=== PATIENT | male | born 1975 | race Caucasian/White ===

== ENCOUNTER 2016-03-22 17:42 | Inpatient (IN) | payer SELFPAY ==
[~2016-03-22] VITALS: Ht 175.3 cm; Wt 64.1 kg
[~2016-03-22 17:42] MED LIST: ASPIRIN325 MG PO; COREG6.25 MG
[2016-03-22 18:22] LABS: BASOPHILS 0.2 % (0.0-2.0); EOSINOPHILS 2.8 % (0-7); HEMATOCRIT 34.6 % (42.0-54.0); HEMOGLOBIN 11.2 g/dL (13.5-17.5); LYMPHOCYTES 19.4 % (15-50); MCH 30.8 pg (26.0-34.0); MCHC 32.4 g/dL (31.0-37.0); MCV 95.1 fL (80.0-100.0); MEAN PLATELET VOLUME 8.9 fL (7.4-10.4); NEUTROPHILS 58.6 % (40-80); PLATELET COUNT 150 10x3/uL (130-400); RBC 3.64 10x6/uL (4.20-6.10); RDW 17.8 % (11.5-14.5); WBC 4.6 10x3/uL (4.8-10.8)
[2016-03-22 18:44] LABS: ALBUMIN 2.4 g/dL (3.4-5.0); ALKALINE PHOSPHATASE 160 U/L (46-116); ALT (SGPT) 26 U/L (10-68); CALC OSMOLALITY 281 mosm/kg (275-300); CALCIUM 8.2 mg/dL (8.5-10.1); CARBON DIOXIDE 27.2 mmol/L (21.0-32.0); CHLORIDE - SERUM 107 mmol/L (98-107); CREATININE - SERUM 0.6 mg/dL (0.6-1.3); GLUCOSE 107 mg/dL (74-106); POTASSIUM - SERUM 3.7 mmol/L (3.5-5.1); PROTEIN - SERUM 7.7 g/dL (6.4-8.2); SODIUM 143 mmol/L (136-145); UREA NITROGEN 4 mg/dL (7-18); eGFR NON AFRICAN AMERICAN > 90 mL/min (90-120)
--- NOTE | 2016-03-22 21:21 | NUR ---
PT ARRIVED TO ICU VIA WHEEL CHAIR. AAO. C/O SHORTNESS OF BREATHE; DEPRESSION; AND HOPELESSNESS. PAIN 8/10 ANKLES. STATES PAIN IS FROM A FX IN RIGHT ANKLE. PT TO BEDSIDE COMMODE; GAIT STEADY. URINAL AT BEDSIDE. URINE YELLOW.
[2016-03-22 21:35] VITALS: BP 149/95; BMI 31.5
--- NOTE | 2016-03-22 21:35 | NUR ---
ASSESSMENT COMPLETE. S1S2. SINUS TACH SHOWING ON MONITOR. RR SHALLOW; DIMINISHED THROUGHOUT ALL LOBES. ABD DISTENDED; ROUND; FIRM. ASCITES PRESENT. PT C/O TENDERNESS IN ABD; STATES CONSTIPATION. AAO. PERRLA.
[2016-03-22 22:00] VITALS: BP 124/85
[2016-03-22 23:00] VITALS: BP 123/72
[2016-03-22 23:22] LABS: APPEARANCE CLEAR (CLEAR); BILIRUBIN NEGATIVE (NEGATIVE); COLOR YELLOW (YELLOW); GLUCOSE NEGATIVE (NEGATIVE); KETONE NEGATIVE (NEGATIVE); LEUKOCYTE ESTERASE NEGATIVE (NEGATIVE); NITRITE NEGATIVE (NEGATIVE); PROTEIN NEGATIVE (NEGATIVE); SPECIFIC GRAVITY 1.015 (1.005-1.020); UROBILINOGEN NORMAL (NORMAL)
[2016-03-22 23:27] LABS: UDS - AMPHET NEGATIVE QUAL (NEGATIVE); UDS - BARB NEGATIVE QUAL (NEGATIVE); UDS - BENZO NEGATIVE QUAL (NEGATIVE); UDS - COCAINE NEGATIVE QUAL (NEGATIVE); UDS - METH NEGATIVE QUAL (NEGATIVE); UDS - OPIATE NEGATIVE QUAL (NEGATIVE); UDS - PCP NEGATIVE QUAL (NEGATIVE); UDS - THC NEGATIVE QUAL (NEGATIVE)
--- NOTE | 2016-03-22 23:49 | NUR ---
PT RESTING; EYES CLOSED. NO DISTRESS NOTED. CALL LIGHT IN REACH. WILL CONTINUE TO MONITOR.
[2016-03-23] VITALS (24 sets, daily range): BP systolic 110–153; BP diastolic 6–87; Ht 175.3 cm; Wt 64.1 kg
--- NOTE | 2016-03-23 01:20 | NUR ---
PT RESTING; EYES CLOSED. VSS. NO DISTRESS NOTED. CALL LIGHT IN REACH. WILL CONTINUE TO MONITOR.
--- NOTE | 2016-03-23 03:15 | NUR ---
ASSESSMENT COMPLETE. NO CHANGES FROM PREVIOUS ASSESSMENT. WILL CONTINUE TO MONITOR.
--- NOTE | 2016-03-23 06:32 | NUR ---
0400: I/O COLLECTED. URINAL EMPTIED. PT HAD LARGE BM; SOFT YELLOW.
--- NOTE | 2016-03-23 07:15 | NUR ---
REPORT RECIEVED FROM SHOW HOST NURSE. PT RESTING IN BED QUIETLY. UPON ASSESSMENT PT ASKED WHAT BROUGHT HIM TO THE HOSPITAL. ANSWERED APPROPRIATLY. TEARFUL ABOUT CURRENT MEDICAL DX. STATED HE IS HOMELESS AND NO LONGER HAS INSURANCE COVERAGE. STATED TO PT THAT WE WILL GET CASE MANAGEMENT INVOLVED THROUGHOUT HIS ADMISSION. FULL ASSESSMENT COMPLETE PER FLOWSHEET. CALL LIGHT IN REACH. BED IN LOW POSITION. WILL CONT TO ASSESS FOR CHANGES.
--- NOTE | 2016-03-23 11:00 | NUR ---
DR. LUGO AT BEDSIDE. UPDATE PROVIDED.
--- NOTE | 2016-03-23 12:43 | NUR ---
MEDICAL RECORDS CALLED AT [facility] TO OBTAIN LAB RECORDS FOR THE LAST YEAR ON PT.
--- NOTE | 2016-03-23 12:44 | NUR ---
US OF ABD BEING COMPLETED NOW.
--- NOTE | 2016-03-23 14:00 | NUR ---
SPOKE WITH DR. WHITEHEAD. PARACENTESIS SCHEDULED FOR TOMORROW. WILL KEEP NPO AFTER MIDNIGHT.
--- NOTE | 2016-03-23 15:00 | NUR ---
PT RESTING IN BED QUIETLY DENIES NEEDS AT THIS TIME. WILL CONT TO ASSESS FOR CHANGES.
--- NOTE | 2016-03-23 15:27 | HP ---
PATIENT: DANIELLE MCKEE MEDICAL RECORD: [id number] ACCOUNT: [id number] LOCATION:[facility] D.2303 : 77 ADMISSION DATE: 03/22/16 HISTORY AND PHYSICAL EXAMINATION HISTORY OF PRESENT ILLNESS: A 40-year-old white male, presented to the Emergency Room on day of admission with a med-on-call admission for edema and liver failure. The patient has a longstanding history of alcohol-induced cirrhosis. He states he was diagnosed with stage IV while he was in [place], [place]. He has been moved up here for several years and has not got a primary care doctor. He was seen at another facility yesterday morning and did not get any treatment in the ER to his satisfaction and came in for second evaluation. The patient smells strongly of alcohol and stated that he wanted to kill himself by taking what medicines he had from leftover ER visits in his pocket and would take them all. The patient's blood alcohol levels was 0.21 and was admitted to the hospital for further evaluation. The patient presently in the ICU under suicide watch and is seen to have evaluation for his cirrhosis. PAST MEDICAL HISTORY: Significant for alcohol abuse, cirrhosis, hypertension, dependent edema, anemia, ischemic CVA, illicit drug use, noncompliance. PAST SURGICAL HISTORY: None. ALLEGIES: THE PATIENT IS ALLERGIC TO CODEINE. MEDICATIONS: Include Coreg. SOCIAL HISTORY: The patient does smoke a half pack per day. He does use recreational marijuana. He continues to drink alcohol on a daily basis. REVIEW OF SYSTEMS: Indicates no fever or chills. He does have some increased abdominal swelling, increased leg swelling and increased fatigue. He does admit to active suicidal ideation. He state that he is angry about his life in this situation. PHYSICAL EXAMINATION: VITAL SIGNS: At the time of history and physical as below. GENERAL: He is a well-developed, well-nourished 40-year-old white male that is awake, alert, with abdominal swelling and swelling in lower extremities. HEENT: Pupils are equally round and reactive to light. Extraocular movements intact. Mildly increased conjunctival injection is noted. NECK: No nuchal rigidity is noted. LUNGS: Have clear breath sounds bilaterally. HEART: Regular rate and rhythm with tachycardia. ABDOMEN: Distended, has a positive fluid wave, is tense, hypoactive bowel sounds. EXTREMITIES: No guarding at the present time, no rashes. He has got 2+ pitting edema in the bilateral lower extremities. NEUROLOGIC: He is able to move all 4 extremities. ASSESSMENT: 1. Alcohol intoxication. 2. Ascites. 3. Cirrhosis. 4. Dependent edema. HISTORY AND PHYSICAL [id number] DANIELLE MCKEE 5. Suicidal ideation. 6. Depression. 7. History of marijuana use. 8. Noncompliance. PLAN: The patient will be admitted to the ICU, psychiatric evaluation will be obtained. GI consultation will be obtained, radiology consultation, CT of the abdomen without contrast. We will need a pleurocentesis to drain all fluid and check laboratory appropriately. TRANSINT:[id number] Voice Confirmation ID: [id number] DOCUMENT ID: [id number] KRISTIAN LUGO MD at 1527 CC: [id number] DICTATION DATE: 03/23/16 1136 CLIPPER AND TURNER: 03/23/16 1236 ADM IN [facility] [address] [place] [address]
[2016-03-23 15:41] LABS: BASOPHILS 0.2 % (0.0-2.0); HEMATOCRIT 28.8 % (42.0-54.0); HEMOGLOBIN 9.3 g/dL (13.5-17.5); LYMPHOCYTES 21.6 % (15-50); MCH 30.7 pg (26.0-34.0); MCHC 32.3 g/dL (31.0-37.0); MEAN PLATELET VOLUME 8.9 fL (7.4-10.4); MONOCYTES 16.7 % (2-11); NEUTROPHILS 59.5 % (40-80); PLATELET COUNT 117 10x3/uL (130-400); RBC 3.03 10x6/uL (4.20-6.10); RDW 17.7 % (11.5-14.5)
[2016-03-23 16:02] LABS: APTT 37.4 SECONDS (22.8-39.4); INR 1.52 (0.85-1.17); PROTIME 18.2 SECONDS (11.6-15.0)
[2016-03-23 16:20] LABS: CALC OSMOLALITY 283 mosm/kg (275-300); CALCIUM 7.8 mg/dL (8.5-10.1); CHLORIDE - SERUM 108 mmol/L (98-107); CREATININE - SERUM 0.6 mg/dL (0.6-1.3); GLUCOSE 144 mg/dL (74-106); POTASSIUM - SERUM 3.2 mmol/L (3.5-5.1); SODIUM 142 mmol/L (136-145); eGFR NON AFRICAN AMERICAN > 90 mL/min (90-120)
[2016-03-23 16:21] LABS: UREA NITROGEN 6 mg/dL (7-18)
--- NOTE | 2016-03-23 18:00 | NUR ---
DR. RUELAS AT BEDSIDE. UPDATE PROVIDED. PLACING ORDERS.
--- NOTE | 2016-03-23 19:00 | NUR ---
REPORT RECIVED, SHIFT ASSESSMENT COMPLETE, PT IS ALERT AND ORIENTED, SLURRED SPEECH NOTED, ON RA WITH 975 O2 SAT. LUNGS CLEAR IN B/L UPPER LOBES, DIMINISHED IN B/L LOWER LOBES, S1S2, CM-ST. PATENT LEFT FA PIV WITH D5LR INFUSING VAI PUMP, ABDOMEN IS DISTENED AND FIRM WITH ACTIVE BS, URINAL AT BEDSIDE, ALL PPP, VSS, CALL LIGHT IN REACH
--- NOTE | 2016-03-23 21:31 | NUR ---
TC to Mor , financial counselor. Patient stated he had insurance, '[employer]" but lost it. Does not know why. Patient actually had Social Security Disability. Counselor met briefly w/ patient today. When he is transferred out of ICU they will contact Social Security to assist patient. Patient had had 2 recent admissions to [facility] in the month of March. He was last discharged on 03/20/16. He has been evaluated by DR Bellamy for his Depression and Suicidal Ideation. The recommendation is for inpatient psych care when medically stable. The patient is in agreement w/ plan at present. He has had a psych stay at [facility] previously. Patient has stated he is homeless. Will need to complete assessment.
--- NOTE | 2016-03-23 23:11 | NUR ---
REASSESSMENT COMPLETE, NO CHANGES NOTED, PT RESTING AT THIS TIME,
[2016-03-24] VITALS (23 sets, daily range): BP systolic 101–136; BP diastolic 56–86
--- NOTE | 2016-03-24 01:26 | NUR ---
NO NEEDS NOTED AT THIS TIME, WILL CON'T TO MONITOR
--- NOTE | 2016-03-24 03:15 | NUR ---
REASSESSMENT COMPLETE, NO CHANGES NOTED, WILL CON'T TO MONITOR
[2016-03-24 04:51] LABS: BASOPHILS 0.3 % (0.0-2.0); EOSINOPHILS 4.4 % (0-7); HEMATOCRIT 30.2 % (42.0-54.0); HEMOGLOBIN 9.6 g/dL (13.5-17.5); IMMATURE GRANULOCYTES 0.3 % (0-5); LYMPHOCYTES 30.5 % (15-50); MCH 30.3 pg (26.0-34.0); MCHC 31.8 g/dL (31.0-37.0); MCV 95.3 fL (80.0-100.0); MONOCYTES 21.6 % (2-11); NEUTROPHILS 42.9 % (40-80); PLATELET COUNT 112 10x3/uL (130-400); RBC 3.17 10x6/uL (4.20-6.10); RDW 17.3 % (11.5-14.5); WBC 3.2 10x3/uL (4.8-10.8)
[2016-03-24 05:04] LABS: INR 1.57 (0.85-1.17); PROTIME 18.7 SECONDS (11.6-15.0)
[2016-03-24 05:17] LABS: ALBUMIN 1.9 g/dL (3.4-5.0); ALKALINE PHOSPHATASE 117 U/L (46-116); AMYLASE - SERUM 74 U/L (25-115); BILIRUBIN - TOTAL 2.98 mg/dL (0.2-1.3); CALCIUM 7.8 mg/dL (8.5-10.1); CARBON DIOXIDE 27.7 mmol/L (21.0-32.0); CHLORIDE - SERUM 105 mmol/L (98-107); CREATININE - SERUM 0.6 mg/dL (0.6-1.3); LIPASE 202 U/L (73-393); MAGNESIUM - SERUM 1.8 mg/dL (1.8-2.4); POTASSIUM - SERUM 3.6 mmol/L (3.5-5.1); PRO BNP 85 pg/mL (0-125); PROTEIN - SERUM 6.1 g/dL (6.4-8.2); SODIUM 138 mmol/L (136-145); THYROID STIMULATING HORMONE 2.02 uIU/mL (0.36-3.74); UREA NITROGEN 6 mg/dL (7-18); eGFR NON AFRICAN AMERICAN > 90 mL/min (90-120)
[2016-03-24 05:18] LABS: ALT (SGPT) 19 U/L (10-68); CALC OSMOLALITY 272 mosm/kg (275-300); GLUCOSE 86 mg/dL (74-106)
--- NOTE | 2016-03-24 05:21 | NUR ---
NO NEEDS NOTED AT THIS TIME, WILL CON'T TO MONITOR
--- NOTE | 2016-03-24 13:44 | CN ---
PATIENT NAME:DANIELLE MCKEE MEDICAL RECORD: [id number] : 77 LOCATION:[facility]2303 ADMIT DATE: 03/22/16 ACCOUNT: [id number] CONSULTING PHYSICIAN: LIAN CHAVEZ MD REFERRING PHYSICIAN: KRISTIAN LUGO MD DATE OF CONSULTATION: 03/23/2016 Psychiatric Consultation IDENTIFYING DATA: The patient is 40 years old and he is admitted to the hospital on a voluntary basis. CHIEF COMPLAINT: Suicidal. HISTORY OF PRESENT ILLNESS: The patient presented to the Emergency Room. He has a history of alcoholic cirrhosis. He has ascites, elevated ammonia and had been drinking. He was intoxicated. He also said he was going to kill himself. He repeats that to me today. In the Emergency Room, he had a specific plan and that was he was going to overdose on the medications that he had with him. The patient endorses numerous neurovegetative depressive symptoms. He minimizes his alcohol abuse, saying that he has largely quit it, but just every now and then get stronger. He says that he is still having intermittent thoughts of harming himself, but no overt psychotic symptoms. MENTAL STATUS EXAMINATION: The patient is awake, alert and oriented to person, place, time and situation. His mood is depressed. His affect is appropriate. Thought processes are goal directed. Memory, concentration and abstraction abilities are intact and he denies any active intent to harm others as well as psychotic symptoms, but does endorse suicidal thoughts. ASSESSMENT: 1. Major depression. 2. Alcoholism. 3. Alcoholic cirrhosis. PLAN: At this time, the patient needs confinement to an inpatient behavioral unit once medically stabilized. He is having depressive symptoms with ongoing thoughts of killing himself. He attempted to kill himself 4 months ago and was hospitalized at [facility]. I recommend he return there. TRANSINT:[id number] Voice Confirmation ID: [id number] DOCUMENT ID: [id number] LIAN CHAVEZ MD at 1344 CC: [id number] DICTATION DATE: 03/23/16 1451 NARCOTICS AND/OR VICE DETECTIVE: 03/23/16 1602 ADM IN [facility] [address] [place] [address]
--- NOTE | 2016-03-24 19:16 | NUR ---
REPORT RECIEVED. ASSESSMENT COMPELTE PER FLOW SHEET. VSS. DENIES NEEDS. WILL CONTINUE TO MONITOR.
--- NOTE | 2016-03-24 20:45 | NUR ---
PRN ATIVAN ADM PER REQUEST FOR ANXIETY. DENIES FURTHER NEEDS
--- NOTE | 2016-03-24 22:10 | NUR ---
GIVEN SPRITE PER REQUEST. DENIES FURTHER NEEEDS.
--- NOTE | 2016-03-24 23:34 | NUR ---
REASSESSMENT COMPLETEPER FLOW SHEET. VSS. NO NW CHANGES WILL CONTINUE TO MONITOR.
[2016-03-25] VITALS (25 sets, daily range): BP systolic 98–127; BP diastolic 42–81
--- NOTE | 2016-03-25 03:19 | NUR ---
REASSESSMENT COMPLETE PER FLOW SHEET. VSS. NO NEW CHANGES AT THIS TIME WILL CONTINUE TO MONITOR.
[2016-03-25 04:44] LABS: BASOPHILS 0.4 % (0.0-2.0); EOSINOPHILS 4.3 % (0-7); HEMATOCRIT 29.1 % (42.0-54.0); HEMOGLOBIN 9.2 g/dL (13.5-17.5); LYMPHOCYTES 28.6 % (15-50); MCH 30.2 pg (26.0-34.0); MCHC 31.6 g/dL (31.0-37.0); MCV 95.4 fL (80.0-100.0); MEAN PLATELET VOLUME 9.3 fL (7.4-10.4); MONOCYTES 23.2 % (2-11); NEUTROPHILS 43.5 % (40-80); PLATELET COUNT 124 10x3/uL (130-400); RBC 3.05 10x6/uL (4.20-6.10); RDW 16.9 % (11.5-14.5); WBC 2.8 10x3/uL (4.8-10.8)
[2016-03-25 04:56] LABS: ALBUMIN 2.1 g/dL (3.4-5.0); ALKALINE PHOSPHATASE 107 U/L (46-116); ALT (SGPT) 16 U/L (10-68); BILIRUBIN - TOTAL 2.41 mg/dL (0.2-1.3); CALC OSMOLALITY 271 mosm/kg (275-300); CALCIUM 7.7 mg/dL (8.5-10.1); CARBON DIOXIDE 27.4 mmol/L (21.0-32.0); CHLORIDE - SERUM 104 mmol/L (98-107); CREATININE - SERUM 0.6 mg/dL (0.6-1.3); GLUCOSE 91 mg/dL (74-106); POTASSIUM - SERUM 3.8 mmol/L (3.5-5.1); PROTEIN - SERUM 5.8 g/dL (6.4-8.2); SODIUM 137 mmol/L (136-145); UREA NITROGEN 6 mg/dL (7-18); eGFR NON AFRICAN AMERICAN > 90 mL/min (90-120)
--- NOTE | 2016-03-25 07:00 | NUR ---
PT REPORT REC'D, PT CARE ASSUMED. PT AAO SITTING IN BED. PT C/O PAIN IN ABDOMEN, RELIEVED BY REPOSITIONING AND MEDICATION. PT ON ROOM AIR, VSS. BILAT SCD'S. LEFT FOREARM PIV CDI. SHIFT ASSESSMENT COMPELTED, SEE FLOW SHEET. BED LOCKED IN LOWEST POSITION, CALL LIGHT IN REACH, WILL CONTINUE TO MONITOR PT.
[2016-03-25 07:26] LABS: HEPATITIS C ANTIBODY <0.1 (0.0-0.9)
--- NOTE | 2016-03-25 11:00 | NUR ---
PT RESTING WITH EYES CLOSED, NO C/O PAIN, VSS. REASSESSMENT COMPLETED, SEE FLOW SHEET. ROOM FREE OF CLUTTER, CALL LIGHT IN REACH, WILL CONTINUE TO MONITOR PT.
--- NOTE | 2016-03-25 12:41 | NUR ---
Nutrition follow-up: Diet advanced to regular with po intake ~75% of meals Wt: 207# Labs: NH3 124 +BM Paracentesis 03/24/16 - 7 liters removed Will provide food choices and honor food preferences. RDN following.
--- NOTE | 2016-03-25 13:19 | NUR ---
PHYSICAL THERAPY AT THE BEDSIDE, VSS. PT TOLERATED WELL.WILL CONTINUE TO MONITOR PT.
--- NOTE | 2016-03-25 13:25 | NUR ---
IBIS GOTTLIEB AEROBICS INSTRUCTOR AT THE BEDSIDE, PT NITHYAO, HEIDIS. WILL CONTINUE TO MONITOR PT.
--- NOTE | 2016-03-25 13:42 | NUR ---
SPOKE WITH PATIENT. HE STATES HE CONTINUES TO HAVE SUICIDAL THOUGHTS. I HAVE CONTACTED [facility] AT [phone] AND SPOKE WITH LONI. I AM FAXING INFORMATION TO HER FOR REVIEW AT [phone]. WILL AWAIT CALL BACK.
--- NOTE | 2016-03-25 15:00 | NUR ---
PT RESTING WITH EYES CLOSED. NO C/O PAIN. VSS. REASSESSMENT COMPLETED, SEE FLOW SHEET. ROOM FREE OF CLUTTER, CALL LIGHT IN REACH, WILL CONTINUE TO MONITOR PT.
--- NOTE | 2016-03-25 18:30 | NUR ---
DR. RUELAS AT THE BEDSIDE. PT C/O FEELING ANXIOUS, ASKING FOR ATIVAN. WILL GIVE MOMENTARILY.
--- NOTE | 2016-03-25 19:25 | NUR ---
PT RESTING QUIETLY WITH UNLABORED RESPIRATIONS. AOX4. REPOSITIONS SELF INDEPENDENTLY. NO C/O PAIN, VSS. PT COOPERATIVE AT THIS TIME. NO S/S OF ACUTE DISTRESS NOTED. ROOM VISIBLE FROM NURSES STATION. CALL LIGHT WITHIN PT REACH. CPOC.
--- NOTE | 2016-03-25 21:20 | NUR ---
FRESH WATER TO BEDSIDE. PT RESTING QUIETLY WITH UNLABORED RESPIRATIONS. VOICES NO FURTHER NEEDS AT THIS TIME. ROOM VISIBLE FROM NURSES STATION. CALL LIGHT WITHIN PT REACH. CPOC.
[2016-03-26] VITALS (21 sets, daily range): BP systolic 91–131; BP diastolic 40–88
[2016-03-26 04:47] LABS: BASOPHILS 0.7 % (0.0-2.0); EOSINOPHILS 4.7 % (0-7); HEMATOCRIT 29.9 % (42.0-54.0); HEMOGLOBIN 9.7 g/dL (13.5-17.5); LYMPHOCYTES 33.9 % (15-50); MCH 30.9 pg (26.0-34.0); MCHC 32.4 g/dL (31.0-37.0); MCV 95.2 fL (80.0-100.0); MEAN PLATELET VOLUME 9.5 fL (7.4-10.4); MONOCYTES 20.8 % (2-11); NEUTROPHILS 39.9 % (40-80); PLATELET COUNT 146 10x3/uL (130-400); RBC 3.14 10x6/uL (4.20-6.10); RDW 16.9 % (11.5-14.5)
[2016-03-26 05:02] LABS: ALBUMIN 2.1 g/dL (3.4-5.0); ALKALINE PHOSPHATASE 117 U/L (46-116); ALT (SGPT) 17 U/L (10-68); BILIRUBIN - TOTAL 1.49 mg/dL (0.2-1.3); CALC OSMOLALITY 272 mosm/kg (275-300); CALCIUM 7.4 mg/dL (8.5-10.1); CARBON DIOXIDE 27.9 mmol/L (21.0-32.0); CHLORIDE - SERUM 106 mmol/L (98-107); CREATININE - SERUM 0.6 mg/dL (0.6-1.3); GLUCOSE 86 mg/dL (74-106); POTASSIUM - SERUM 4.2 mmol/L (3.5-5.1); PROTEIN - SERUM 5.6 g/dL (6.4-8.2); SODIUM 138 mmol/L (136-145); UREA NITROGEN 6 mg/dL (7-18); eGFR NON AFRICAN AMERICAN > 90 mL/min (90-120)
--- NOTE | 2016-03-26 06:34 | NUR ---
LATE ENTRY: RECEIVIED CALL BACK FROM [facility]. THEY WILL NOT ACCEPT PATIENT. THEY FEEL HE WOULD NEED A PSYCH UNIT THAT HAS HOSPITAL ATTACHMENT DUE TO HIS MEDICAL CONDITION. WILL ATTEMPT FURTHER PLACEMENT.
--- NOTE | 2016-03-26 07:00 | NUR ---
PT REPORT REC'D, PT CARE ASSUMED. PT RESTING WITH EYES CLOSED, NO C/O PAIN, VSS. LEFT FOREARM PIV S/L CDI. ACTIVE BOWEL SOUNDS X4, RIGHT GROIN DRESSING CDI. PT STATES "I STILL HAVE THOUGHT OF SUICIDE." SHIFT ASSESSMENT COMPLETED, SEE FLOW SHEET. ROOM FREE OF CLUTTER, CALL LIGHT IN REACH, WILL CONTINUE TO MONITOR PT.
--- NOTE | 2016-03-26 07:45 | NUR ---
DELIVERED PT'S BREAKFAST TRAY, VSS, NO C/O PAIN. PT AAO. WILL CONTINUE TO MONITOR PT.
--- NOTE | 2016-03-26 08:36 | NUR ---
I SPOKE WITH CRIS AT [facility] IN [place]. SHE ASKED THAT WE HAVE HIM SCREENED FOR FUNDS FROM [facility] (COMMUNITY COUNSELING). I PHONED [facility] AND SPOKE WITH ROSS. SHE STATES SHE WILL COME EVALUATE HIM FOR CONTRACT. AFTER HER VISIT I WILL FAX HIS INFOR TO CRIS FOR EVAL. NOEMI TO FOLLOW.
--- NOTE | 2016-03-26 09:41 | NUR ---
SANDY POSEY FROM [facility] SPEAKING WITH PT.
--- NOTE | 2016-03-26 11:00 | NUR ---
PT SITTING UP IN BED, NO C/O PAIN, VSS. REASSESSMENT COMPLETED, SEE FLOW SHEET. ROOM FREE OF CLUTTER, CALL LIGHT IN REACH, WILL CONTINUE TO MONITOR PT.
--- NOTE | 2016-03-26 14:48 | NUR ---
PATIENT IS APPROVED BY [facility] AND [facility]. SANDY POSEY LPC CAME AND EVALUATED HIM AND APPROVED FUNDS FOR HIM TO GO TO INPATIENT PSYCH. THE RECEIVING FACILITY WILL NEED TO CONTACT HER FOR THE CONTRACT NUMBER. HER PHONE NUMBER IS [phone]. I RECEIVED A CALL BACK FROM [facility] IN [place]. THEY HAVE DECLINED THE PATIENT DUE TO THE FACT HE HAD A PARACENTESIS. I CONTACTED [facility] IN [place] [phone] AND FAXED INFORMATION TO THEM. AFTER SEVERAL HOURS I CALLED THEM BACK AND THEY TOLD ME THEY DO NOT HAVE ANY BEDS THIS AFTERNOON AND I CAN CALL THEM TOMORROW IF I DO NOT FIND PLACEMENT. I CONTACTED [facility] AND SPOKE WITH BUD. SHE TOOK THE INFORMATION AND ASKED FOR A PHONE NUMBER TO CONTACT DR. LUGO. I SPOKE WITH DR. LUGO AND HE SAID TO GIVE THEM M2 NUMBER, . I PROVIDED NUMBERS FOR MY PHONE AND FOR THE ICU. I PROVIDED THE FAX NUMBER FOR ICU, [phone]. I FAXED THE INFORMATON AND TOLD BUD THAT PATIENT WAS APPROVED FOR FUNDS AT AN INPATIENT PSYCH FACILITY. THE INFORMATION WAS FAXED TO [phone]. WILL AWAIT DECISION. NOEMI TO FOLLOW.
--- NOTE | 2016-03-26 15:00 | NUR ---
PT SITTING UP IN BED WATCHING TV, NO C/O PAIN. VSS. REASSESSMENT COMPLETED, SEE FLOW SHEET. ROOM FREE OF CLUTTER, CALL LIGHT IN REACH, WILL CONTINUE TO MONITOR PT.
[2016-03-26] MEDS ORDERED: CELEXA20 MG PO (18:22)
[2016-03-26] MEDS ORDERED: ALDACTONE100 MG PO (18:22)
[2016-03-26] MEDS ORDERED: XIFAXAN550 MG PO (18:22)
--- NOTE | 2016-03-26 18:48 | NUR ---
DC'ED LEFT FOREARM PIV, TIP INTACT. BANDAID APPLIED. SRRN
--- NOTE | 2016-03-26 19:28 | NUR ---
SPOKE WITH DANIELA MODI AT [facility], REPORT GIVEN. WILL HAVE NIGHT NURSE CALL [facility] ONCE PT LEAVES UNIT.
--- NOTE | 2016-03-26 19:45 | NUR ---
194: Pt resting in bed with eyes open. Pt LOCx3 alert and oriented at this time. Pt states he is aware and agreeable to transfer to [facility]. [facility] called for transfer. Pt breathing RA RR 16x with SPO2 97% Lungs clear bilat with auscultation. MMP and no cyanosis noted. Ecnouraged DBC. S1S2 regular and SR on CM 89 bpm. PPPx4=bilat. No IV access noted. ABD distended and tight to palpation. Shiny in appearence. Pt has small puncture site seen in RLQ. (Paracentesis noted) Pt denies cramping, nausea, or vomitting at this time. Pt denies difficulty with eliminatin. Urinal has yellow UOP. All monitors on and alarms intact.
--- NOTE | 2016-03-26 19:50 | NUR ---
DR. QUINTERO AT [facility] CALLED THE ICU, UPDATE GIVEN. WILL CALL EMS FOR TRANSFER AT THIS TIME.
--- NOTE | 2016-03-26 19:55 | NUR ---
1954: Educational Adviser here reviewing transfer forms with charge entry.
--- NOTE | 2016-03-26 20:45 | NUR ---
PT TRANSFERRED TO [facility] VIA EMS. WITH BELONGS BAG X 2. PT DENIES HAVING ANY OTHER VALUABLES HERE.
--- NOTE | 2016-03-27 07:17 | NUR ---
LATE ENTRY: PATIENT WAS EVALUATED BY [facility]. HE WAS ACCEPTED AND TRANSFERRED TO [facility] WEDNESDAY EVENING AT APPROX 2044.
--- NOTE | 2016-04-03 08:46 | EC ---
PATIENT:DANIELLE MCKEE DATE OF SERVICE: 03/22/16 SEX: M MEDICAL RECORD: [id number] DATE OF : 77 [place] AGE OF PATIENT: 40 ADMISSION DATE: 03/22/16 REFERRING PHYSICIAN: INTERPRETING PHYSICIAN: JOVANNA STORY MD ECHOCARDIOGRAM REPORT ECHO CHARGES 4 ECHO COMPLETE CLINICAL DIAGNOSIS: HEART MURMUR ECHOCARDIOGRAPHIC MEASUREMENTS (adult normal given) AC root (d.<3.7cm) 3.5 LV Septum d (<1.2 cm> 1.3 Valve Excursion 1.5 LV Septum (systole) 1.5 Left Atria (s.<4.0cm> 3.9 LVPW d(<1.2cm) 1.3 RV (d.<2.3cm) 3.9 LVPW (sytole) 1.4 LV diastole(<5.6CM) 5.5 MV E-F(>70mm/sec) LV systole 3.5 LVOT Diameter 1.8 MV exc.(>10mm) 1.2 Est.ejection fraction (50-75%) Pericardial Effusion N DOPPLER: LVIT A 72.0 E 121 LA RVSP 23 LVOT 145 AOP1/2T Asc. Ao 172 RVOT 76 RA PA 158 AV Gradient Peak 11.89 AV Mean 5.4 AV Area 1.7 MV Gradient Peak 8.93 MV Mean 2.5 MV Area COMMENTS: Office Messenger: Michael ROBISON Can Dryer:Deanne Story TAPE# PACS DATE OF SERVICE: 03/24/2016 Echocardiogram FINDINGS: 1. Left ventricular chamber size is within normal limits. Left ventricular systolic function is normal. Overall ejection fraction estimated at 65%. 2. Left atrium, right atrium, and right ventricular chamber sizes are within normal limits. 3. Valvular structures have normal structure and motion. ECHOCARDIOGRAM REPORT [id number] DANIELLE MCKEE 4. Doppler interrogation reveals mild to moderate mitral regurgitation, mild tricuspid regurgitation, no other valvular insufficiency or stenosis. Pulmonary systolic pressure is normal estimated at 23 mmHg. 5. No evidence of pericardial effusion or left ventricular thrombus. TRANSINT:[id number] Voice Confirmation ID: [id number] DOCUMENT ID: [id number] JOVANNA STORY MD at 0846 CC: [id number] DICTATION DATE: 03/25/16 1003 MACHINIST TOOL AND DIE: 03/25/16 1042 DIS IN 03/26/16 [facility] [address] [place] [id number]
--- NOTE | 2016-04-30 15:18 | DS ---
PATIENT:DANIELLE MCKEE :77 MEDICAL RECORD: [id number] DISCHARGE SUMMARY ADMISSION DATE: 03/22/16 DISCHARGE DATE: 03/26/16 This is a discharge dated 03/26/2016 from the inpatient hospital. DISCHARGE DIAGNOSES: 1. Liver failure. 2. Edema. 3. Alcoholic cirrhosis. 4. Hypertension. 5. Ischemic cerebrovascular accident. 6. Anemia. 7. Chronic noncompliance. 8. Substance abuse. 9. Alcohol intoxication. 10. Ascites. 11. Cirrhosis. 12. Suicidal ideation. 13. Depression. 14. Anemia. 15. Hyperammonemia. CONSULTS THIS HOSPITALIZATION: GI with Dr. Roberto. PROCEDURES THIS HOSPITALIZATION: Paracentesis with removal of 7 liters of fluid on March 24. HOSPITAL COURSE: Full H&P is located elsewhere on the chart on this 40-year-old male, who was admitted with ascites and edema. He was admitted to intensive care for monitoring with of suicidal ideation. CT of the abdomen was obtained. Paracentesis was performed with removal of 7 liters of fluid. This was done by interventional radiology on March 24. Labs were monitored closely. He was seen by Dr. Roberto for GI. Medications were adjusted for diuresis. Ammonia level was significantly elevated. He was on lactulose and Xifaxan. Case management was involved for discharge planning for psychiatric placement. He was accepted to [facility] for psychiatric evaluation. He was medically stable for discharge on March 26. DISCHARGE MEDICATIONS: As per discharge medication reconciliation. DISCHARGE DISPOSITION: The patient was discharged to [facility] for psych evaluation and intervention. He will continue his current diet and level of activity and will follow up with specialists and primary care upon discharge from that facility. TRANSINT:[id number] Voice Confirmation ID: [id number] DOCUMENT ID: [id number] Dictated By: CARLIE REEVES I have interviewed/examined the above patient and agree with these documented findings. DISCHARGE SUMMARY REPORT [id number] DANIELLE MCKEE, KRISTIAN CORDOBA at 1346 at 1518 CC: [id number] DICTATION DATE: 04/24/16 1614 TANK WELDER: 04/25/16 0453 DIS IN 03/26/16 [facility] [address] [place] [address]
== END 2016-03-26 20:45 | DRG 433 ==
LOC: D.ER 17:42 → D.ICU 19:35
PROVIDERS: Family Medicine; Internal Medicine Gastroenterology; Radiology Diagnostic Radiology; ADMIT Family Medicine
PROC: 0W9G3ZZ Drainage of Peritoneal Cavity, Percutaneous Approach (ICD-10-PCS; principal; 2016-03-24)
DX: K70.31 Alcoholic cirrhosis of liver with ascites (principal); K76.6 Portal hypertension; R45.851 Suicidal ideations; F10.229 Alcohol dependence with intoxication, unspecified; D64.9 Anemia, unspecified; F32.9 Major depressive disorder, single episode, unspecified; Z86.73 Personal history of transient ischemic attack (TIA), and cerebral infarction without residual deficits; Z91.19 Patient's noncompliance with other medical treatment and regimen

== ENCOUNTER 2016-04-30 16:35 | Emergency (ER) | payer SELFPAY ==
[2016-03-23 09:40] VITALS: BMI 31.4
--- NOTE | ~2016-04-30 | HEMODYNAMI ---
PATIENT:DANIELLE MCKEE MEDICAL RECORD: [id number] : 77 LOCATION:[facility] ADMISSION DATE: 04/30/16 Generatedon:04/30/201618:41 Patient name: DANIELLE MCKEE Patient #: [id number] SSN: DO B: 1975 Date of study: 04/30/2016 Page: Of Hemodynamic Procedure Report Patient Data Patient Demographics Procedure consent was obtained First Name: DANIELLE Gender: Male Last Name: RAFI : 1975 Patient #: [id number] Age: 40 year(s) Race: Unknown Additional ID: [id number] Contact details [address]: [address] [place] [address] State: [place] City: [place] Zip code: [address] Admission Admission Data Admission Date: 04/30/2016 Admission Time: 16:35 Procedure Procedure Types Cath Procedure Miscellaneous Procedures Procedure Description Procedure Date Procedure Date: 04/30/2016 Procedure Start Time: 17:55 Procedure Staff Name Function Shola Sanchez MD Performing Physician Jenny Cevallos RN Nurse Nathanael Cobos RT Monitor Procedure Medications Medication Administration Route Dosage Oxygen NC 3 l/min Hemodynamics Rest Heart Rate: 100 (bpm) Snapshots Pre Cath Intra NCS Post Cath Vital Signs Time Heart Resp SPO2 NIBP Rhythm Pain Sedation Rate (ipm) (%) (mmHg) Status Level (bpm) 17:48:05 103 12 98 125/79(96) NSR 0 (11) 10(A) , No pain 17:52:24 99 12 99 135/75(99) NSR 0 (11) 10(A) , No pain 17:56:23 103 19 98 No Cuff NSR 0 (11) 10(A) , No pain 18:00:23 101 29 97 No Cuff NSR 0 (11) 10(A) , No pain 18:04:22 93 19 98 No Cuff NSR 0 (11) 10(A) , No pain 18:08:22 93 11 99 No Cuff NSR 0 (11) 10(A) , No pain 18:12:22 88 22 99 No Cuff NSR 0 (11) 10(A) , No pain 18:16:21 91 18 99 No Cuff NSR 0 (11) 10(A) , No pain 18:19:03 91 25 99 117/70(89) NSR 0 (11) 10(A) , No pain 18:23:13 92 25 99 119/73(93) NSR 0 (11) 10(A) , No pain 18:27:27 93 20 99 120/62(88) NSR 0 (11) 10(A) , No pain 18:31:35 96 16 99 112/72(90) NSR 0 (11) 10(A) , No pain 18:35:43 94 18 100 121/72(90) NSR 0 (11) 10(A) , No pain 18:39:43 96 24 100 No Cuff NSR 0 (11) 10(A) , No pain Medications Time Medication Route Dose Verified Delivered Reason Notes Effectivene ss by by 17:48:45 Oxygen NC 3 Jenny Alvarado Per l/min King LY Cevallos RN protocol Procedure Log Time Note 17:36:00 Jenny Cevallos RN sent for patient. Start room use. 17:36:07 Time tracking: Regular hours 17:36:31 Plan of Care:Hemodynamics will remain stable., Cardiac rhythm will remain stable., Comfort level will be maintained., Respiratory function will remain adequate., Patient/ family verbilizes understanding of procedure., Procedure tolerated without complication., Recovers from procedure without complications.. 17:36:41 Patient arrived from ED to IR. Patient remains on bed/stretcher for procedure. 17:36:42 Correct patient and procedure confirmed by team. 17:36:44 Signed procedure consent form obtained from patient. 17:36:45 ECG and BP/O2 sat monitors applied to patient. 17:36:46 Full Disclosure recording started 17:36:47 - 17:36:47 - 17:36:57 H&P Date Dictated: 04/30/2016 Emergent; H&P N/A, Within 30 days and on chart.. 17:36:58 Pre-op teaching completed and patient verbalized understanding. 17:36:59 Pre-procedure instructions explained to patient. 17:37:04 Family unavailable. 17:37:05 Patient NPO since Midnight. 17:37:11 Is the patient allergic to Iodine/contrast media? No. 17:37:13 Was the patient premedicated? No 17:37:14 Is patient on blood thinner?Yes 17:37:17 ACC The patient was administered the following blood thiners within the last 24 hours: ACCAspirin 17:37:18 Patient diabetic? No. 17:37:20 - 17:37:20 ----Pre-sedation anethsthesia assessment.---- 17:37:23 Previous problem with sedation/anesthesia? No ? 17:37:23 Snore? Yes 17:37:25 Sleep apnea? Yes 17:37:26 Deviated septum? No 17:37:29 Opens mouth fully? Yes 17:37:31 Sticks out tongue? Yes 17:37:34 Airway obstruction? No ? 17:37:36 Dentures? No ? 17:37:48 Patient pain scale 0/10 no pain. 17:37:51 Sharps counted by scrub and verified by RRayNRay 17:37:51 Alarms reviewed by Boone Hernandez 17:37:57 Right abdomen area was prepped with chlora-prep and draped in sterile fashion 17:40:11 Pt states he has had 3 beers since [address] DW Dr Sanchez. Decision made to do procedure with local only./ 17:46:17 Baseline sample Acquired. 17:46:18 Vital chart was started 17:46:25 Rhythm: sinus tachycardia 17:46:35 Physician arrived 17:46:36 --------ALL STOP TIME OUT------ 17:46:37 Final Timeout: patient, procedure, and site verified with staff and physician. All members of the team are in agreement. 17:46:45 Right abdomen site verified by team. 17:46:49 Physical assessment completed. ASA score P 3 - A patient with severe systemic disease as per Shola Sanchez MD. 17:46:54 Sedation plan: Local Anesthetic Lidocaine 17:48:45 Oxygen 3 l/min NC was administered by Jenny Cevallos RN; Per protocol; 17:54:53 Procedure started. 17:55:19 Local anesthetic to Abdominal area with Lidocaine 1% by Shola Sanchez MD.INITIAL ACCESS ONLY 17:55:25 [id number]-V-[id number] 8FR CATH DRAIN TRAY opened to sterile field. 18:34:38 11 liters drained 18:35:06 Procedure ended.(Physican Out) 18:35:16 Sharps counted by scrub and verified by R.N. 18:35:26 Post Abdominal area:stable 18:35:30 Post-op/insertion site Right Abdominal area dressed using a 4 x 4 and Tegaderm. 18:35:35 Post-procedure physical assessment completed. ASA score P 3 - A patient with severe systemic disease as per Shola Sanchez MD. 18:35:41 Post procedure rhythm: unchanged. 18:35:42 Post procedure instruction explained to patient.Patient verbalizes understanding. 18:35:43 Procedure and supply charges have been captured, reviewed, submitted an d are correct. 18:39:09 Report given to ED. 18:39:13 Patient transfered to ED with Stretcher. 18:41:01 Vital chart was stopped Device Usage Item Name Manufacture Quantity Catalog Hospital Part Current Minimal Lot# / Number Charge Number Stock Stock Serial# Code [id number] CareFusion 1 [id number] 5 8FR CATH DRAIN TRAY Signature Audit [place] Stage Time Signature Unsigned Intra-Procedure 04/30/2016 Nathanael 6:40:58 PM Shuffield RT (R) (CV) Signatures Monitor : Nathanael Signature : Shuffield RT Date : Time : [address] [address]
[~2016-04-30 16:35] MED LIST changes: +ALDACTONE100 MG PO; +CELEXA20 MG PO; +XIFAXAN550 MG PO
[2016-04-30 17:26] LABS: BASOPHILS 0.4 % (0.0-2.0); EOSINOPHILS 3.1 % (0-7); HEMATOCRIT 31.4 % (42.0-54.0); HEMOGLOBIN 10.1 g/dL (13.5-17.5); LYMPHOCYTES 26.9 % (15-50); MCH 29.6 pg (26.0-34.0); MCHC 32.2 g/dL (31.0-37.0); MCV 92.1 fL (80.0-100.0); MEAN PLATELET VOLUME 9.4 fL (7.4-10.4); MONOCYTES 12.4 % (2-11); NEUTROPHILS 57.2 % (40-80); PLATELET COUNT 131 10x3/uL (130-400); RBC 3.41 10x6/uL (4.20-6.10); RDW 15.8 % (11.5-14.5); WBC 4.5 10x3/uL (4.8-10.8)
[2016-04-30 17:36] LABS: INR 1.35 (0.85-1.17); PROTIME 16.6 SECONDS (11.6-15.0)
[2016-04-30 17:47] LABS: ALBUMIN 2.3 g/dL (3.4-5.0); ALKALINE PHOSPHATASE 150 U/L (46-116); ALT (SGPT) 24 U/L (10-68); BILIRUBIN - TOTAL 0.88 mg/dL (0.2-1.3); CALC OSMOLALITY 277 mosm/kg (275-300); CALCIUM 7.5 mg/dL (8.5-10.1); CARBON DIOXIDE 28.4 mmol/L (21.0-32.0); CHLORIDE - SERUM 107 mmol/L (98-107); CREATININE - SERUM 0.6 mg/dL (0.6-1.3); GLUCOSE 98 mg/dL (74-106); POTASSIUM - SERUM 3.8 mmol/L (3.5-5.1); PROTEIN - SERUM 6.7 g/dL (6.4-8.2); SODIUM 141 mmol/L (136-145); UREA NITROGEN 5 mg/dL (7-18); eGFR NON AFRICAN AMERICAN > 90 mL/min (90-120)
[2016-04-30 17:55] LABS: CKMB 0.2 U/L (0.0-3.6); CREATINE KINASE 107 UL (21-232)
== END 2016-05-01 00:40 | disposition home or self-care (01) ==
LOC: D.ER 16:35
PROVIDERS: General Practice; Nurse Practitioner Acute Care
DX: R18.8 Other ascites (principal); F10.10 Alcohol abuse, uncomplicated; K70.40 Alcoholic hepatic failure without coma; Z86.73 Personal history of transient ischemic attack (TIA), and cerebral infarction without residual deficits; I10 Essential (primary) hypertension; F32.9 Major depressive disorder, single episode, unspecified; F17.200 Nicotine dependence, unspecified, uncomplicated

== ENCOUNTER 2016-05-19 04:45 | Inpatient (IN) | payer MEDICAID ==
[~2016-05-19] VITALS: Ht 175.3 cm; Wt 71.1 kg
[2016-05-19] VITALS (10 sets, daily range): BP systolic 99–131; BP diastolic 55–77; Ht 175.3 cm; Wt 71.1 kg
--- NOTE | ~2016-05-19 | HEMODYNAMI ---
PATIENT:DANIELLE MKCEE MEDICAL RECORD: [id number] : [birth year] LOCATION[id number] ADMISSION DATE: 05/19/16 Generatedon:05/20/201617:14 Patient name: DANIELLE MCKEE Patient #: [id number] SSN: DO B: 1975 Date of study: 05/20/2016 Page: Of Hemodynamic Procedure Report Patient Data Patient Demographics Procedure consent was obtained First Name: DANIELLE Gender: Male Last Name: RAFI : 1975 Patient #: [id number] Age: 40 year(s) Race: Unknown Additional ID: [id number] Contact details Address: [address] [place] [address] State: [place] City: [place] Zip code: [address] Past Medical History Allergies Allergen Reaction Date Comments Reported Codeine 05/20/2016 Admission Admission Data Admission Date: 05/19/2016 Admission Time: 6:13 Room #: D2302 Height (in.): 69 BSA: 2.14 (m2) Height (cm.): 175.26 BMI: 32.04 (kg/m2) Weight (lbs.): 217 Weight (kg.): 98.43 Procedure Procedure Types Cath Procedure Peripheral Cath Diagnostic Procedure Cath Peripheral Liver TIPSS Procedure Description Procedure Date Procedure Date: 05/20/2016 Procedure Start Time: 12:51 Procedure Staff Name Function Shola Sanchez MD Performing Physician Nathanael Cobos RT Scrub Cole Avery MD Additional personnel Jenny Cevallos RN Nurse Mame Livingston RN Nurse Christin Lopez RT Lube Man Christin Lopez RT Monitor Procedure Data Cath Procedure Fluoroscopy Diagnostic fluoroscopy Total fluoroscopy Time: time: 70.1 min 70.1 min Diagnostic fluoroscopy Total fluoroscopy dose: dose: 3839 mGy 3839 mGy Contrast Material Contrast Material Type Amount (ml) Isovue 300 275 Diagnostic catheters Device Type Used For End Catheter Placement Merit UHF Pigtail VESSEL SIZING 5Fr 65CM catheter Hemodynamics Rest BSA: 2.14 (m2) O2 Consumption: Estimated: 291.04 (ml/min) O2 Consumption indexed : Estimated:136 (ml/min/m) Pre Cath Intra NCS Post Cath Procedure Log Time Note 12:07:30 Patient Height : 69 cm 12:07:33 Patient Weight : 217 kg 12:11:38 Time tracking: Regular hours 12:14:04 Plan of Care:Hemodynamics will remain stable., Cardiac rhythm will remain stable., Comfort level will be maintained., Respiratory function will remain adequate., Patient/ family verbilizes understanding of procedure., Procedure tolerated without complication., Recovers from procedure without complications.. 12:14:12 Patient received from ICU to IR Alert and oriented. Tansferred to table in Supine position. 12:14:15 Warm blankets applied, and david hugger turned on for patient comfort. 12:14:16 Correct patient and procedure confirmed by team. 12:14:20 Signed procedure consent form obtained from patient. 12:14:35 - 12:14:41 Use device set IR Diagnostic 12:14:44 Sterile Angiographic Pack opened to sterile field. 12:14:45 Bag Decanter opened to sterile field. 12:14:46 Acist Manifold opened to sterile field. 12:14:47 Acist Hand Control opened to sterile field. 12:14:48 Acist Syringe opened to sterile field. 12:16:17 BasixTOUCH Inflation Syringe opened to sterile field. 12:16:19 TUBING, CONTRAST INJCTN HI PRES opened to sterile field. 12:16:20 TUBING, CONTRAST INJCTN HI PRES opened to sterile field. 12:16:22 TUBING, CONTRAST INJCTN HI PRES opened to sterile field. 12:16:24 Cook DRUMMOND 260 guide wire opened to sterile field. 12:16:27 Terumo ANGLE 260cm glide wire opened to sterile field. 12:16:28 Micropuncture VSI 4FR kit opened to sterile field. 12:16:30 Cook DOC .035 guide wire opened to sterile field. 12:16:32 STOPCOCK 3-WAY LARGE BORE opened to sterile field. 12:16:33 KIT, TRANSJUGULAR LIVER ACCESS R opened to sterile field. 12:16:50 [id number] 8FR CATH DRAIN TRAY opened to sterile field. 12:24:32 - 12:25:04 Full Disclosure recording started 12:25:25 H&P Date Dictated: 05/20/2016 Within 30 days and on chart.. 12::27 Pre-procedure instructions explained to patient. ::28 Pre-op teaching completed and patient verbalized understanding. 12::30 Family unavailable. 12::35 Patient NPO since Midnight. 12:25:44 Patient allergic to Codeine 12:25:48 Is the patient allergic to Iodine/contrast media? No. 12:25:55 Is patient on blood thinner?No 12:26:02 Patient diabetic? No. 12:26:05 - 12:26:10 - 12:26:29 IV patent on arrival in left forearm with 0.9% NaCl at [facility]. 12::58 Right neck area was prepped with chlora-prep and draped in sterile fashion 12:27:19 Right abdomen area was prepped with chlora-prep and draped in sterile fashion 12:46:35 Physician arrived 12:48:19 Final Timeout: patient, procedure, and site verified with staff and physician. All members of the team are in agreement. 12:50:52 Procedure started. 12:51:26 Local anesthetic to right IJ vein with Lidocaine 1% by Shola Sanchez MD.INITIAL ACCESS ONLY 12:57:41 Physical assessment completed. ASA score P 4 - A patient with severe systemic disease that is a constant threat to life as per Cole Avery MD. 12:57:47 Sedation plan: General Anesthesia General Anesthesia 13:05:37 Terumo 5FR ANGLED 65CM glide catheter opened to sterile field. 13:05:38 St Tae 6Fr sheath opened to sterile field. 13:06:14 CONNECTING TUBE FOR DRAINAGE BAG opened to sterile field. 13:06:14 Terumo TORQUE DEVICE PLASTIC .038 opened to sterile field. 13:37:53 St Tae SHEATH 10FR 23CM opened to sterile field. 13:38:35 [place] Sci AMPLATZ Super stiff 180cm guide wire opened to sterile field . 14:05:00 Cook BENTSON 145cm guide wire opened to sterile field. 14:40:43 Terumo ANGLED SS 260CM glide wire opened to sterile field. 14:40:59 A [email or web address] F Pigtail VESSEL SIZING 5Fr 65CM catheter was advanced over the wire and used for . 15:13:39 Inflation number: 1 A Cordis Powerflex Pro 4.0 x 40 x 135cm balloon was prepped and advanced across the Undefined1, then inflated to 16 WALTER for 0:07 (min:sec). 15:16:57 [place] Sci AMPLATZ Super stiff 260cm guide wire opened to sterile field . 15:19:11 Cook Bentson 260cm 0.035 guide wire opened to sterile field. 15:26:27 [place] Sci TRANSEND STEERABLE guide wire opened to sterile field. 15:26:43 RENEGADE STAIGHT 150CM microcatheter opened to sterile field. 15:34:46 [place] Sci INTERLOCK 14 X 30 coil opened to sterile field. 15:37:17 [place] Sci INTERLOCK 14 X 30 coil opened to sterile field. 15:44:25 [place] Sci INTERLOCK 10 X 20 coil opened to sterile field. 15:51:13 [place] Sci INTERLOCK 10 X 20 coil opened to sterile field. 16:06:27 Cook DOC .035 guide wire opened to sterile field. 16:06:28 Cook Fredi 20mm x 20cm Coil opened to sterile field. 16:08:28 Cook Fredi 20mm x 20cm Coil opened to sterile field. 16:15:20 KIT, TRANSJUGULAR LIVER ACCESS R opened to sterile field. 16:41:00 Terumo ANGLE 260cm glide wire opened to sterile field. 16:53:23 Procedure ended.(Physican Out) 16:53:31 Fluoroscopy time 70.10 minutes. 16:54:12 Flurop Dose total: 3839 16:54:12 Fluoroscopy dose: 3839 mGy 16:54:17 Contrast amount:Isovue 300 275ml. 16:54:20 Sharps counted by scrub and verified by R.N. 16:54:23 Procedure and supply charges have been captured, reviewed, submitted an d are correct. Intervention Summary Intervention Notes Time ActionType Lesion and Equipment Action# Pressure Duration Attributes Used 15:13:39 Inflate Undefined1 Cordis 1 16 00:07 balloon Powerflex Pro 4.0 x 40 x 135cm balloon Device Usage Item Name Manufacture Quantity Catalog Hospital Part Current Mini mal Lot# / Number Charge Number Stock Stock Serial# Code Sterile Cardinal 1 [id number] 5 Angiographic Health Pack Bag Decanter Microtek 1 2002S [id number] 94910 898793 5 Medical Inc. Acist Manifold Acist 1 70538 521072 645563 092894 5 Medical Systems Inc Acist Hand Acist 1 78741 169472 391374 613327 5 Control Medical Systems Inc Acist Syringe Acist 1 55509 785120 043898 890500 20 Medical Systems Inc BasixTOUCH Merit 1 AP6116 383120 610569 422538 5 Inflation Medical Syringe TUBING, Merit 3 [id number] 317736 418458 163597 5 CONTRAST INJCTN Medical HI PRES Cook DRUMMOND 260 [facility] 1 V37930 712494 155663 5 [id number] guide wire Terumo ANGLE Terumo 2 TY1236 835343 821599 892973 5 260cm glide wire Micropuncture VSI VASCULAR 1 7266V 301889 915293 5 VSI 4FR kit SOLUTIONS [place] DOC .035 [facility] 2 L10788 088675 938737 5 6523938 guide wire [id number] STOPCOCK 3-WAY [facility] 1 E87497 924180 1379 665377 5 [id number] LARGE BORE KIT, [facility] 2 F38414 628375 312438 5 [id number] TRANSJUGULAR [id number] LIVER ACCESS R NUQD-T-AINCVBVS CareFusion 1 [id number] 103300 284997 5 8FR CATH DRAIN TRAY Terumo 5FR Terumo 1 CG507 724701 604008 [address] glide catheter [address] Tae 6Fr St Tae 1 459619 547720 387057 5 1674895 sheath CONNECTING TUBE [place] 1 [id number] 272490 164992 524615 5 FOR DRAINAGE Scientific BAG Terumo TORQUE [place] 1 TD01 013471 080554 510077 5 DEVICE PLAST[address] Scientific .[address] Tae 1 109188 416245 961367 5 8FR 23CM [place] [facility] [place] 1 [id number] 415326 558133 5 AMPLATZ Super Scientific stiff 180cm guide wire [facility] 1 K54083 715447 869453 5 [id number] 145cm guide wire Terumo ANGLED Terumo 1 VQ7859 948781 738222 660983 5 SS 260CM glide wire [facility] Merit 1 [id number] 911519 307386 5 Pigtail VESSEL Medical SIZING 5Fr 65CM catheter Cordis Cardinal 1 [id number] 953060 369833 425449 5 Powerflex Pro Health 4.0 x 40 x 135cm balloon [place] Sci [place] 1 [id number] 928521 06311 574502 5 AMPLATZ Super Scientific stiff 260cm guide wire MyWishBoard [facility] 1 X96312 582503 961845 135763 4 260cm 0.035 guide wire [place] [employer] [place] 1 [id number] 873817 047391 5 TRANSEND Scientific STEERABLE guide wire RENEGADE [place] 1 [id number] 535628 342578 5 STAIGHT 150CM Scientific microcatheter [place] Sci [place] 2 [id number] 339703 404453 913625 5 [id number] INTERLOCK 14 X Scientific 72763509 30 coil [place] Sci [place] 2 [id number] 619877 808994 5 [id number] INTERLOCK 10 X Scientific [id number] [address] [facility] 2 E94715 648083 490462 412680 5 [id number] 20mm x 20cm [id number] Coil Signature Audit [place] Stage Time Signature Unsigned Intra-Procedure 05/20/2016 Christin Lopez 5:14:11 PM RT(R) Signatures Monitor : Christin Lopez RT Signature : Date : Time : [place] [id number] [place] [address]
--- NOTE | ~2016-05-19 | HEMODYNAMI ---
PATIENT:DANIELLE MCKEE MEDICAL RECORD: [id number] : [birth year] LOCATION:[facility] D230 ADMISSION DATE: 05/19/16 Generatedon:05/26/201612:57 Patient name: DANIELLE MCKEE Patient #: [id number] SSN: DO B: 1975 Date of study: 05/26/2016 Page: Of Hemodynamic Procedure Report Patient Data Patient Demographics Procedure consent was obtained First Name: DANIELLE Gender: Male Last Name: RAFI : 1975 Patient #: [id number] Age: 40 year(s) Race: Unknown Additional ID: [id number] Contact details [address]: [address] [place] [address] State: [place] City: [place] Zip code: [address] Past Medical History Allergies Allergen Reaction Date Comments Reported Codeine 05/20/2016 Admission Admission Data Admission Date: 05/19/2016 Admission Time: 6:13 Room #: 2302 Height (in.): 69 BSA: 2.14 (m2) Height (cm.): 175.26 BMI: 32.04 (kg/m2) Weight (lbs.): 217 Weight (kg.): 98.43 Procedure Procedure Types Cath Procedure Peripheral Cath Diagnostic Procedure Miscellaneous Procedure Description Procedure Date Procedure Date: 05/26/2016 Procedure Start Time: 11:13 Procedure Staff Name Function Shola Sanchez MD Performing Physician Traci Meza RT Scrub Mame Livingston RN Nurse Nathanael Cobos RT Monitor Johann Garner MD Additional personnel Procedure Data Cath Procedure Fluoroscopy Diagnostic fluoroscopy Total fluoroscopy Time: 17 time: 17 min min Diagnostic fluoroscopy Total fluoroscopy dose: 796 dose: 796 mGy mGy Contrast Material Contrast Material Type Amount (ml) Isovue 300 260 Diagnostic catheters Device Type Used For End Catheter Placement Merit ULTRA BOLUS FLUSH 5Fr 90CM catheter Hemodynamics Rest BSA: 2.14 (m2) O2 Consumption: Estimated: 291.04 (ml/min) O2 Consumption indexed : Estimated:136 (ml/min/m) Pre Cath Intra NCS Post Cath Procedure Log Time Note 10:23:37 Patient Height : 69 cm 10:23:37 Patient Weight : 217 kg 10:39:17 Nathanael Cobos RT (R) (CV) sent for patient. Start room use. 10:39:29 Time tracking: Regular hours 10:39:34 Plan of Care:Hemodynamics will remain stable., Cardiac rhythm will remain stable., Comfort level will be maintained., Respiratory function will remain adequate., Patient/ family verbilizes understanding of procedure., Procedure tolerated without complication., Recovers from procedure without complications.. 10:39:40 Patient received from ICU to IR Alert and oriented. Tansferred to table in Supine position. 10:39:42 Warm blankets applied, and david hugger turned on for patient comfort. 10:39:43 Correct patient and procedure confirmed by team. 10:39:45 Signed procedure consent form obtained from patient. 10:39:46 ECG and BP/O2 sat monitors applied to patient. 10:39:47 Full Disclosure recording started 10:39:48 - 10:39:53 H&P Date Dictated: 05/26/2016 Within 30 days and on chart.. 10:39:53 Pre-procedure instructions explained to patient. 10:39:54 Pre-procedure instructions explained to patient. 10:39:55 Pre-op teaching completed and patient verbalized understanding. 10:39:56 Family in waiting room. 10:39:59 Patient NPO since Midnight. 10:40:04 - 10:40:22 SEE ANESTHESIA NOTE FOR PRE PROCEDURE TIVA 10:40:26 Use device set IR Diagnostic 10:40:28 Bag Decanter opened to sterile field. 10:40:28 Sterile Angiographic Pack opened to sterile field. 10:40:30 Acist Hand Control opened to sterile field. 10:40:30 Acist Syringe opened to sterile field. 10:40:31 Acist Manifold opened to sterile field. 10:44:44 [id number] 8FR CATH DRAIN TRAY opened to sterile field. 11:10:08 Right abdomen area was prepped with chlora-prep and draped in sterile fashion 11:12:24 Physician arrived 11:: --------ALL STOP TIME OUT------ 11::25 Final Timeout: patient, procedure, and site verified with staff and physician. All members of the team are in agreement. 11:12:29 Right groin site verified by team. 11:12:34 Right abdomen site verified by team. 11:12:55 Physical assessment completed. ASA score P 4 - A patient with severe systemic disease that is a constant threat to life as per Johann Garner MD. 11:13:01 Sedation plan: IV Moderate Sedation General Anesthesia 11:13:24 Procedure started. 11:13:32 Local anesthetic to right femoral vein with Lidocaine 1% by Shola Sanchez MD.INITIAL ACCESS ONLY 11:13:39 Local anesthetic to Abdominal area with Lidocaine 1% by Shola Sanchez MD.ADDITIONAL ACCESS 11:13:52 Terumo 5FR COBRA 65CM glide catheter opened to sterile field. 11:13:53 St Tae 6Fr sheath opened to sterile field. 11:13:55 Micropuncture VSI 4FR kit opened to sterile field. 11:13:56 Cook DOC .035 guide wire opened to sterile field. 11:13:57 TUBING, CONTRAST INJCTN HI PRES opened to sterile field. 11:20:13 Terumo ANGLE 180L glide wire opened to sterile field. 11:21:53 Terumo TORQUE DEVICE PLASTIC .038 opened to sterile field. 11:22:44 Cook DRUMMOND 180 guide wire opened to sterile field. 11:25:11 DILATOR, VESSEL 8/20 opened to sterile field. 11:25:13 DILATOR, VESSEL 7/20 opened to sterile field. 11:31:21 Cook DOC .035 guide wire opened to sterile field. 11:39:55 Cook Diazson 260cm 0.035 guide wire opened to sterile field. 11:40:02 Cook DRUMMOND 260 guide wire opened to sterile field. 11:41:24 Terumo 5FR ANGLED 100CM glide catheter opened to sterile field. 11:52:32 A Merit ULTRA BOLUS FLUSH 5Fr 90CM catheter was advanced over the wire and used for . 12:00:09 Terumo 5FR ANGLED 100CM glide catheter opened to sterile field. 12:09:11 20 MM AMPLATZER PLUG DEPLOYED LOT#[id number] 12:13:43 STOPCOCK 3-WAY LARGE BORE opened to sterile field. 12:41:48 Procedure ended.(Physican Out) 12:42:30 Fluoroscopy time 17.00 minutes. 12:42:35 Fluoroscopy dose: 796 mGy 12:42:35 Flurop Dose total: 796 12:42:41 Contrast amount:Isovue 300 260ml. 12:42:43 Sharps counted by scrub and verified by R.N. 12:44:43 SEE ANESTHESIA NOTE FOR POST PROCEDURE TIVA 12:44:49 Post-op/insertion site Right Femoral vein dressed using a 4 x 4 and Tegaderm. 12:44:54 Post-op/insertion site Right Abdominal area dressed using a 4 x 4 and Tegaderm. 12:44:59 Post right femoral vein:stable 12:45:04 Post Abdominal area:stable 12:45:10 Post-procedure physical assessment completed. ASA score P 4 - A patient with severe systemic disease that is a constant threat to life as per Johann Garner MD. 12:45:12 Post procedure rhythm: unchanged. 12:52:03 Post procedure instruction explained to patient.Patient verbalizes understanding. 12:53:03 3.5 LITERS DRAINED FROM ABD 12:55:05 Procedure and supply charges have been captured, reviewed, submitted an d are correct. 12:55:24 Report given to Recovery Room. 12:55:27 Patient transfered to Recovery Room with Bed. Device Usage Item Name Manufacture Quantity Catalog Number Hospital Part Current M inimal Lot# / Charge Number Stock Stock Serial# Code Bag Decanter Microtek 1 [id number] [id number] 27878 [id number] 5 Medical Inc. Sterile Cardinal 1 [id number] 507592 222217 5 Angiographic Health Pack Acist Hand Acist 1 97264 699856 162567 187736 5 Control Medical Systems Inc Acist Syringe Acist 1 58803 044799 691346 012428 2 0 Medical Systems Inc Acist Manifold Acist 1 68610 590593 103513 274823 5 Medical Systems Inc [id number] CareFusion 1 [id number] 947233 293890 5 8FR CATH DRAIN TRAY Terumo 5FR Terumo 1 CG502 812313 961414 [address]BRA [address] glide catheter [address] Tae 6Fr St Tae 1 708363 906073 136749 5 9807172 sheath Micropuncture VSI VASCULAR 1 7266V 773886 123109 5 VSI 4FR kit SOLUTIONS Cook DOC .035 Cook Medical 2 M03933 101582 575122 5 [id number] guide wire [id number] TUBING, Merit 1 [id number] 337754 520862 260117 5 CONTRAST INJCTN Medical HI PRES Terumo ANGLE Terumo 1 DT6662 811527 266123 316422 5 180L glide wire Terumo TORQUE [place] 1 TD01 777137 698847 103688 5 DEVICE PLASTIC Scientific .038 Cook DRUMMOND 180 Cook Medical 1 C44807 938684 141836 5 guide wire DILATOR, VESSEL Cook Medical 1 X46626 538738 40547 234941 5 [id number] 8/20 DILATOR, VESSEL Cook Medical 1 R11076 727781 50183 419904 5 [id number] 7/20 Cook Bentson Cook Medical 1 F47340 090307 359015 983100 4 260cm 0.035 guide wire Cook DRUMMOND 260 Cook Medical 1 Q97566 769733 525323 5 3765677 guide wire Terumo 5FR Terumo 2 CG508 137493 89265 427389 4 ANGLED 100CM glide catheter Merit ULTRA Merit 1 [id number] 718401 685806 5 BOLUS FLUSH 5Fr Medical 90CM catheter STOPCOCK 3-WAY Cook [facility] 1 Q31678 634221 4639 126448 5 [id number] LARGE BORE Signature Audit Suffield Stage Time Signature Unsigned Intra-Procedure 05/26/2016 Nathanael 12:57:08 PM Shuffield RT (R) (CV) Signatures Monitor : Nathanael Signature : Shuffield RT Date : Time : [place] [address] [place] [address]
[2016-05-19 05:33] LABS: BASOPHILS 0.4 % (0.0-2.0); EOSINOPHILS 2.7 % (0-7); HEMATOCRIT 26.9 % (42.0-54.0); HEMOGLOBIN 8.5 g/dL (13.5-17.5); IMMATURE GRANULOCYTES 0.1 % (0-5); LYMPHOCYTES 17.8 % (15-50); MCH 29.5 pg (26.0-34.0); MCHC 31.6 g/dL (31.0-37.0); MCV 93.4 fL (80.0-100.0); MEAN PLATELET VOLUME 10.3 fL (7.4-10.4); MONOCYTES 17.1 % (2-11); NEUTROPHILS 61.9 % (40-80); PLATELET COUNT 134 10x3/uL (130-400); RBC 2.88 10x6/uL (4.20-6.10); RDW 17.3 % (11.5-14.5); WBC 7.4 10x3/uL (4.8-10.8)
[2016-05-19 05:44] LABS: INR 1.71 (0.85-1.17)
[2016-05-19 05:45] LABS: APTT 36.3 SECONDS (22.8-39.4)
[2016-05-19 06:02] LABS: ALBUMIN 1.8 g/dL (3.4-5.0); ALKALINE PHOSPHATASE 130 U/L (46-116); ALT (SGPT) 36 U/L (10-68); AMYLASE - SERUM 70 U/L (25-115); BILIRUBIN - TOTAL 1.08 mg/dL (0.2-1.3); CALC OSMOLALITY 275 mosm/kg (275-300); CALCIUM 7.2 mg/dL (8.5-10.1); CARBON DIOXIDE 26.2 mmol/L (21.0-32.0); CHLORIDE - SERUM 108 mmol/L (98-107); CREATINE KINASE 144 UL (21-232); CREATININE - SERUM 0.7 mg/dL (0.6-1.3); GLUCOSE 100 mg/dL (74-106); LIPASE 264 U/L (73-393); MAGNESIUM - SERUM 1.8 mg/dL (1.8-2.4); POTASSIUM - SERUM 4.8 mmol/L (3.5-5.1); PRO BNP 110 pg/mL (0-125); PROTEIN - SERUM 5.5 g/dL (6.4-8.2); SODIUM 139 mmol/L (136-145); TROPONIN-I 0.025 ng/mL (0.000-0.060); UREA NITROGEN 6 mg/dL (7-18); eGFR NON AFRICAN AMERICAN > 90 mL/min (90-120)
[2016-05-19 06:28] LABS: UDS - AMPHET NEGATIVE QUAL (NEGATIVE); UDS - BARB NEGATIVE QUAL (NEGATIVE); UDS - BENZO NEGATIVE QUAL (NEGATIVE); UDS - COCAINE NEGATIVE QUAL (NEGATIVE); UDS - METH NEGATIVE QUAL (NEGATIVE); UDS - OPIATE NEGATIVE QUAL (NEGATIVE); UDS - PCP NEGATIVE QUAL (NEGATIVE); UDS - THC NEGATIVE QUAL (NEGATIVE)
[2016-05-19 06:54] LABS: APPEARANCE CLEAR (CLEAR); BILIRUBIN NEGATIVE (NEGATIVE); COLOR YELLOW (YELLOW); GLUCOSE NEGATIVE (NEGATIVE); KETONE NEGATIVE (NEGATIVE); LEUKOCYTE ESTERASE TRACE (NEGATIVE); NITRITE NEGATIVE (NEGATIVE); PROTEIN 1+ mg/dL (NEGATIVE); SPECIFIC GRAVITY 1.015 (1.005-1.020); UROBILINOGEN NORMAL (NORMAL)
[2016-05-19 06:55] LABS: BACTERIA FEW /hpf (NONE SEEN); EPITHELIAL CELLS 0-5 /hpf (0-5); MUCUS <1+ /lpf (NONE SEEN); WHITE CELLS - URINE 0-5 /hpf (0-5)
--- NOTE | 2016-05-19 07:15 | NUR ---
Report received from More in ER.
--- NOTE | 2016-05-19 09:00 | NUR ---
Brendon aware of consult, new orders recceived.
[2016-05-19 09:25] LABS: HEMATOCRIT 25.1 % (42.0-54.0); HEMOGLOBIN 8.3 g/dL (13.5-17.5)
--- NOTE | 2016-05-19 10:00 | NUR ---
IR has seen patient. Pt to go to CT for workup for TIPPS procedure. Patient continues to request food and drink.
--- NOTE | 2016-05-19 13:00 | NUR ---
Spoke to . Patient is to go to OR for EGD while intubated. Verbal consent received from patient.
--- NOTE | 2016-05-19 13:24 | NUR ---
Patient gone to CT via wheelchair. FFP, Sandostatin and protonix gtts infusing.
--- NOTE | 2016-05-19 13:52 | NUR ---
Patient taken to OR for EGD with intubation and anesthesia.
[2016-05-19 15:44] LABS: HEMOGLOBIN 8.5 g/dL (13.5-17.5)
--- NOTE | 2016-05-19 16:20 | NUR ---
through to see patient. Informed her of patients critical ammonia level.
--- NOTE | 2016-05-19 16:46 | NUR ---
Patient up to BSC, call light within reach.
--- NOTE | 2016-05-19 16:50 | NUR ---
Patient Name: DANIELLE CMKEE Admission Status: ER Accout number: [id number] Admission Date: 05-19-2016 : 1975 Admission Diagnosis: Attending: MARGE Current LOS: 1 Anticipated DC Date: TO BE DETERMINED Planned Disposition: Home Primary Insurance: UNINSURED DISCOUNT PLAN Discharge Planning Comments: CM ATTEMPTED TO MEET WITH PT FOR INITIAL ASSESSMENT OF DISCHARGE NEEDS. PT WAS ON BEDSIDE COMMODE AT APPROXIMATELY 1640 HOURS. CM TO ATTEMPT ASSESSMENT OF PT AT A LATER TIME. Md Ophthalmologist: Binu Nguyen
--- NOTE | 2016-05-19 17:51 | NUR ---
Patient sleeping at this time
--- NOTE | 2016-05-19 19:15 | NUR ---
REPORT RECEIVED AND CARE ASSUMED. INITIAL SHIFT ASSESSMENT PER FLOWSHEET. PT RECEIVING PRBC AT THIS TIME AND JUST COMPLETED A UNIT OF FFP. ALL OTHER IV FLUIDS PER IV FLOWSHEET. PT SLEEPING BUT EASILY AWAKEN. DENIES PAIN AND NAUSEA. ALL IV LINES AND FLUIDS ARE PROPERLY LABELED AND ARE CURRENT. IVF PER PUMP. ZOFRAN GTT CHANGED FORM LAC PIV TO PICC. PIV FLUSHED WITH NS, WNL. PT BEING MONITORED PER STANDARD IVU PROTOCOL WITH ALL ALARMS SET AND VERIFIED.
--- NOTE | 2016-05-19 21:00 | NUR ---
NO VISITORS AT THIS TIME. HS MEDS GIVEN PER ORDER. PER VERBAL REPORT OF OFFGOING RN, DR. MOREAU HAS INSTRUCTED STRICT NPO EXCEPT LACTULOSE ONLY. THIS IS BEING OBSERVED AND PT TEACHING ON THE ORDER AND RATIONALE DONE. PT VERBALIZES COMPREHENSION.
[2016-05-19 21:45] LABS: HEMATOCRIT 28.9 % (42.0-54.0); HEMOGLOBIN 9.8 g/dL (13.5-17.5)
[2016-05-20] VITALS (15 sets, daily range): BP systolic 89–134; BP diastolic 51–81
--- NOTE | 2016-05-20 06:29 | NUR ---
PT HAS HAD AN UNEVENTFUL NIGHT. DID JUST FINISH UP WITH A UNIT OF PRBC GIVEN BASED ON THE PERIMETERS ON ORDER. PT HAD NO VOMITING THIS SHIFT AND DID DENY NAUSEA THROUGHOUT THE SHIFT. DID VOID SYLVAIN URINE WITHOUT DIFFICULTY AND NO STOOLS OBSERVED THIS SHIFT. THE COMPUTERS WERE DOWN MOST OF THIS SHIFT AND PT'S CARE WAS CHARTED ON PAPER NURSES NOTES. SEE PAPER CHARTING FOR SPECIFIC CHARTING INQUIRES
[2016-05-20 07:15] LABS: PRE-ALBUMIN 9.3 mg/dL (18.0-35.7)
[2016-05-20 07:24] LABS: HEMATOCRIT 27.7 % (42.0-54.0)
[2016-05-20 07:31] LABS: BASOPHILS 0.2 % (0.0-2.0); EOSINOPHILS 1.6 % (0-7); HEMATOCRIT 28.7 % (42.0-54.0); HEMOGLOBIN 9.3 g/dL (13.5-17.5); LYMPHOCYTES 25.3 % (15-50); MCH 29.5 pg (26.0-34.0); MCHC 32.4 g/dL (31.0-37.0); MCV 91.1 fL (80.0-100.0); MEAN PLATELET VOLUME 11.2 fL (7.4-10.4); MONOCYTES 16.9 % (2-11); PLATELET COUNT 95 10x3/uL (130-400); RBC 3.15 10x6/uL (4.20-6.10); RDW 17.5 % (11.5-14.5); WBC 4.9 10x3/uL (4.8-10.8)
[2016-05-20 07:52] LABS: PLATELET ESTIMATE DECREASED
[2016-05-20 07:55] LABS: INR 1.54 (0.85-1.17); PROTIME 18.4 SECONDS (11.6-15.0)
[2016-05-20 08:17] LABS: ALBUMIN 2.1 g/dL (3.4-5.0); ALKALINE PHOSPHATASE 105 U/L (46-116); ALT (SGPT) 27 U/L (10-68); BILIRUBIN - TOTAL 4.13 mg/dL (0.2-1.3); CALCIUM 7.6 mg/dL (8.5-10.1); CARBON DIOXIDE 26.5 mmol/L (21.0-32.0); CHLORIDE - SERUM 110 mmol/L (98-107); CREATININE - SERUM 0.7 mg/dL (0.6-1.3); GLUCOSE 77 mg/dL (74-106); PROTEIN - SERUM 5.2 g/dL (6.4-8.2); SODIUM 143 mmol/L (136-145); eGFR NON AFRICAN AMERICAN > 90 mL/min (90-120)
[2016-05-20 08:19] LABS: CALC OSMOLALITY 282 mosm/kg (275-300); POTASSIUM - SERUM 3.9 mmol/L (3.5-5.1); UREA NITROGEN 10 mg/dL (7-18)
--- NOTE | 2016-05-20 08:56 | NUR ---
TALKED WITH PATIENT ABOUT TIPS PROCEDURE AND ASKED IF HE WAS WILLING TO HAVE THIS PROCEDURE DONE. HE SAID IF HE WAS NOT GOING TO BE 100% KNOCKED OUT AND IF HE WAS GOING TO HAVE ANY PAIN AT ALL AFTER HE WAS NOT GOING TO HAVE IT DONE. EXPLAINED THAT THIS WAS GOING TO BE DONE UNDER GENERAL ANESTHESIA SO HE WOULD BE ASLEEP, BUT FOR THE PAIN, I COULD NOT MAKE A 100% GUARANTEE THAT THERE WOULD BE NO PAIN AT ALL, BUT IT SHOULDN'T BE MUCH. HE THEN SAID "YOU GET THE DOCTOR IN HERE TO TALK TO ME. I WANT TO HEAR IT FROM HIM AND IF I AM GOING TO BE IN PAIN IT'S NOT HAPPENING". CALL PLACED TO FRE[facility]OM IN SPECIALS. DR KEMP IN A PROCEDURE AT THIS TIME, BUT HE SAID THAT HE WOULD RELAY THIS TO HIM.
--- NOTE | 2016-05-20 09:09 | NUR ---
FREEDOM WITH IR HERE. HE SPOKE WITH THE PATIENT. I WENT IN TO SEE THE PATIENT AFTER THIS. HE IS STILL REFUSING TO SIGN THE CONSENT FORMS, BUT HE ALLOWED ME TO PUT HIM IN A GOWN AND HE DID A CHLORAHEX BATH. HE ALSO STATED THAT HE BETTER BE ABLE TO EAT AND DRINK AFTER THIS. IT WAS EXPLAINED THAT I COULD NOT SAY FOR SURE HE COULD. HE SAID "WELL, I HAVEN'T HAD ANYTHING IN 2 DAYS AND IF I HAVE TO, I WILL JUST DRINK OUT OF THAT SINK THERE." THIS NURSE ASKED HIM TO PLEASE NOT DO THIS, AGAIN REVIEWED WITH HIM HOW IMPORTANT IT WAS FOR HIS BANDS TO HAVE TIME TO SETTLE AND HOW DETRIMENTAL IT COULD BE IF HE WERE TO KNOCK THEM LOOSE AGAIN. HE STATED, "I DON'T CARE, I AM ABOUT TO STARVE TO ". AGAIN REQUESTED HE NOT DO ANYTHING AND EXPLAINED I WOULD TALK WITH THE DOCTOR.
--- NOTE | 2016-05-20 09:47 | NUR ---
FRANCESCA RN WITH DR KEMP HERE. HAS GONE IN AND SPOKE WITH THE PATIENT. HE REQUESTED THAT DR RUELAS BE CALLED AND ASKED TO COME AND TALK WITH THE PATIENT SECONDARY TO ALL THE DEMANDS PATIENT IS MAKING. SPOKE WITH DR RUELAS. SHE ASKED THAT IT BE EXPLAINED THAT WE HAVE SPOKE WITH HER AND THAT RIGHT NOW SHE HAS A SEDATED PATIENT ON THE TABLE AND CANNOT COME OVER TO TALK WITH HIM. SHE REQUESTED THAT I TELL HIM SHE SAID IF HE DOES NOT HAVE THE PROCEDURE THAT HE MAY AND THEY MAY NOT BE ABLE TO SAVE HIM. SHE ALSO SAID TO TELL HIM THAT SHE CANNOT GUARANTEE HE WILL NOT HAVE PAIN OR DISCOMFORT AND NO ONE CAN MAKE THAT GUARANTEE. SHE ALSO WANTED IT RELAYED THAT SHE CANNOT GUARANTEE THAT HE CAN HAVE SOLID FOOD, BUT SHE MAY LET HIM HAVE A FULL LIQUID DIET LATER THIS AFTERNOON. ALL OF THIS WAS TOLD TO THE PATIENT AND HE DID SIGN HIS CONSENT FORMS.
--- NOTE | 2016-05-20 11:35 | NUR ---
Patient Name: DANIELLE MCKEE Admission Status: ER Accout number: [id number] Admission Date: 05-19-2016 : 1975 Admission Diagnosis:HEMATEMESIS Attending: MARGE Current LOS: 1 Anticipated DC Date: TO BE DETERMINED Planned Disposition: Home Primary Insurance: UNINSURED DISCOUNT PLAN Discharge Planning Comments: * Is the patient Alert and Oriented? Yes 0 * How many steps to enter\\exit or inside your home? NONE 0 * PCP NONE 0 * Pharmacy [facility] * Preadmission Environment Homeless 0 * Other Environment HAS A CAR, LIVING "OUT OF A TENT" 0 * Facility Name NONE 0 * ADLs Independent 0 * Equipment None 0 * Other Equipment NO MEDICAL EQUIPMENT PROVIDER PREFERENCE 0 * List name and contact numbers for known caregivers / representatives who currently or will assist patient after discharge: RIMAYONTERRY MCKEECOSME, 0 * Community resources currently utilized None 0 * Please name any agencies selected above. NONE 0 * Additional services required to return to the preadmission environment? No 0 * Can the patient safely return to the preadmission environment? Yes 0 * Has this patient been hospitalized within the prior 30 days at any hospital? Yes 0 CM MET WITH PT IN ROOM TO DISCUSS DISCHARGE PLANNING AND NEEDS. PT REPORTS LIVING OUT OF HIS CAR AND A TENT; PT REPORTS BEING INDEPENDENT IN HIS CARE. PT REPORTS HAVING A CANE AND NO MEDICAL EQUIPMENT PROVIDER PREFERENCE. PT HAS LOST HIS INSURANCE THROUGH [employer], HAS HIS MEDICAID CARD IN HIS CAR. PT HAS NOT CONTACTED DEPARTMENT OF HUMAN SERVICES TO FIND OUT WHY HIS INSURANCE WAS CANCELLED, BUT REPORTS HE DOES NOT HAVE A MAILING ADDRESS TO HAVE BEEN RECEIVING MAIL AT THIS TIME. PT REPORTS NO FAMILY SUPPORT. PT HAS NO PRIMARY DOCTOR AND NO WAY TO GET HIS PRESCRIPTIONS FILLED. CM DISCUSSED AVAILABILITY OF [facility] AND OFFERED PT AN APPLICATION FOR SERVICES. PT DENIES NEED, REPORTS HE USED TO GO THERE AND THEY WILL NOT SEE HIM ANYMORE BECAUSE HE DOES NOT HAVE STATE ISSUED ID CARD. PT REPORTS HAVING A [facility] ID CARD AND MEDICAID CARD. PT HAS NOT FOLLOWED UP WITH THE REVENUE OFFICE TO SEE WHAT HE NEEDS TO GET A STATE ID CARD. CM DISCUSSED [facility], PT REPORTS AWARENESS OF THE HALFWAY AND HAVING USED IT IN THE PAST. PT IS ALSO AWARE OF [facility] SERVICES. CM ASKED ABOUT PT'S ALCOHOL USE AND OFFERED ADDICTION RESOURCES AVAILABLE IN THE COMMUNITY; PT DECLINED, REPORTS THAT IS NOT A PROBLEM ANY MORE, PT REPORTS HE WANTS TO LIVE AND WILL NO LONGER BE DRINKING ALCOHOL. PT LIVES IN HIS CAR AND A TENT. PT UNSURE OF DISCHARGE NEEDS AT THIS TIME. PT HAS NO HEALTH INSURANCE, NO PRIMARY CARE DOCTOR, REPORTS INABILITY TO AFFORD ANY PRESCRIPTIONS AT DISCHARGE AND DENIES HAVING FAMILY SUPPORT. CM TO FOLLOW AND ASSIST NEEDED. Tv Host: Binu Nguyen
--- NOTE | 2016-05-20 11:59 | NUR ---
INTERVENTIONAL RADIOLOGY HERE TO TAKE THE PATIENT FOR HIS TIPS PROCEDURE.
[2016-05-20 12:05] LABS: HEMATOCRIT 31.5 % (42.0-54.0); HEMOGLOBIN 10.5 g/dL (13.5-17.5)
--- NOTE | 2016-05-20 15:30 | NUR ---
JUST HAD TIME TO SIT DOWN AND RECORD VITAL SIGNS. WHEN TRYING TO PULL UP RECORD, THE RECORD WAS BLANK. WHEN INTERVENTIONAL RADIOLOGY PICKED UP THE PATIENT, SOME HOW HIS INFORMATION WAS ERASED.
--- NOTE | 2016-05-20 17:20 | NUR ---
PATIENT HERE FROM INTERVENTIONAL RADIOLOGY VIA BED. BEDSIDE REPORT RECEIVED FROM LEOBARDO. RECOVERY HERE TO RECOVER PATIENT. PATIENT WAKES BRIEFLY BUT DRIFTS BACK OFF TO SLEEP. NOW HAS ESPINAL. BLOOD DRAWN FOR H/H. WILL MONITOR.
[2016-05-20 17:52] LABS: HEMATOCRIT 31.2 % (42.0-54.0); HEMOGLOBIN 10.4 g/dL (13.5-17.5)
--- NOTE | 2016-05-20 19:15 | NUR ---
SHIFT ASSESSESSMENT COMPLETED SEE FLOWSHEET. PT SLEEPING BUT EASILY AWAKEN DENIES PAIN BUT COMPLAINS BITTERLY ABOUT NPO STATUS. PT TEACHING DONE ON RATIONALE. PT PASSIVE TO TEACHING. PT BEING MONITORED PER ICU STANDARDS WITH ALL ALARMS VERIFIED AND SET. IVF LISTED PER IV FLOWSHEET. ALL LINES AND FLUIDS ARE DATED AND LABELED APPROPRIATELY AND ARE NOT DUE TO BE CHANGED UNTIL 05-22-16.
--- NOTE | 2016-05-20 21:00 | NUR ---
DR. RUELAS HERE TO SEE PT UPDATE GIVEN. PT HAS HAD NO VOMITING OR NAUSEA OR BLOODY STOOLS ON THIS SHIFT. RECEIVED VERBAL CONSENT FOR CLEAR LIQUIDS SIPS ONLY. DR. RUELAS TO PUT IN ORDERS. DR. RUELAS ONLY STATED THE ESPINAL CATHETER IS NOT TO BE REMOVED UNTIL TOMORROW. PT IS ON BEDREST UNTIL MIDNIGHT PER IR TOLD IN REPORT
--- NOTE | 2016-05-20 22:00 | NUR ---
ZOFRAN GTT DISCONTINUED.
--- NOTE | 2016-05-20 23:00 | NUR ---
SHIFT REASSESSMENT COMPLETED NO SIGNIFICANT CHANGES. NEW MEDS STARTED PER DR. ANDERSON ORDERS WITH PT TEACHING DONE PRIOR. PT IS TOLERATING SIPS OF CLEAR LIQUIDS AND DENIES NAUSEA. NO BLOODY STOOLS SEEN THIS SHIFT.
[2016-05-21] VITALS (24 sets, daily range): BP systolic 93–109; BP diastolic 48–64
--- NOTE | 2016-05-21 01:00 | NUR ---
H/H DRAWN AND SENT TO THE LAB FOR ANALYSIS
[2016-05-21 01:25] LABS: HEMATOCRIT 31.1 % (42.0-54.0); HEMOGLOBIN 10.3 g/dL (13.5-17.5)
--- NOTE | 2016-05-21 03:00 | NUR ---
SHIFT REASSESSMENT COMPLETED NO SIGNIFICANT CHANGE.
--- NOTE | 2016-05-21 05:00 | NUR ---
PT SLEEPING WELL. RESP REG AND NONLABORED. DENIES PAIN/NAUSEA
--- NOTE | 2016-05-21 06:00 | NUR ---
PT CONTINENT OF 200CC BLACK/GREEN THICK LIQUID STOOL. COMPLETE LINEN CHANGE DONE.
[2016-05-21 06:30] LABS: BASOPHILS 0.2 % (0.0-2.0); EOSINOPHILS 1.1 % (0-7); HEMOGLOBIN 10.3 g/dL (13.5-17.5); IMMATURE GRANULOCYTES 0.2 % (0-5); LYMPHOCYTES 15.4 % (15-50); MCH 30.2 pg (26.0-34.0); MCHC 33.2 g/dL (31.0-37.0); MCV 90.9 fL (80.0-100.0); MEAN PLATELET VOLUME 10.2 fL (7.4-10.4); MONOCYTES 15.4 % (2-11); NEUTROPHILS 67.7 % (40-80); PLATELET COUNT 105 10x3/uL (130-400); RBC 3.41 10x6/uL (4.20-6.10); RDW 17.2 % (11.5-14.5); WBC 5.4 10x3/uL (4.8-10.8)
--- NOTE | 2016-05-21 07:00 | NUR ---
REC'D REPORT AND RESUMED CARE, SLEEPING AROUSABLE TO VERBAL STIMULI, VSS, DENIES PAIN, ASSESSMENT COMPLETE PER FLOWSHEET, NO NEEDS AT THIS TIME, CALL LIGHT IN REACH
[2016-05-21 07:11] LABS: ALBUMIN 1.9 g/dL (3.4-5.0); ALKALINE PHOSPHATASE 128 U/L (46-116); BILIRUBIN - TOTAL 2.86 mg/dL (0.2-1.3); CALCIUM 7.2 mg/dL (8.5-10.1); CARBON DIOXIDE 27.1 mmol/L (21.0-32.0); CHLORIDE - SERUM 106 mmol/L (98-107); CREATININE - SERUM 0.7 mg/dL (0.6-1.3); GLUCOSE 79 mg/dL (74-106); PROTEIN - SERUM 5.5 g/dL (6.4-8.2); SODIUM 138 mmol/L (136-145); eGFR NON AFRICAN AMERICAN > 90 mL/min (90-120)
[2016-05-21 07:14] LABS: ALT (SGPT) 38 U/L (10-68); CALC OSMOLALITY 272 mosm/kg (275-300); UREA NITROGEN 6 mg/dL (7-18)
--- NOTE | 2016-05-21 07:40 | NUR ---
BREAKFAST TRAY TO BEDSIDE, INDEPENDENT WITH SET UP AND EATING
--- NOTE | 2016-05-21 09:00 | NUR ---
AM MEDS GIVEN WITHOUT DIFFICULTY
--- NOTE | 2016-05-21 11:00 | NUR ---
SLEEPING WITH NO SIGNS OF DISTRESS AROUSABLE TO VERBAL STIMULI, FOLLOWS COMMANDS, VSS, NO ACUTE CHANGE FROM PREVIOUS ASSESSMENT
--- NOTE | 2016-05-21 12:15 | NUR ---
CLEAR LIQUID TRAY TO BEDSIDE, INDEPENDENT WITH SET UP AND EATING
--- NOTE | 2016-05-21 14:03 | NUR ---
INCONTINENT OF MUCOUS LIKE SMALL GREEN STOOL, SKINCARE AND LINEN CHANGE COMPLETED, STATED HE STILL HAS TO GO OOB TO BSC WITH ASSIST, 300 CC GREEN DIARRHEA STOOL TO SINGH, INDEPENDENT WITH SKINCARE, BTB WITH ASSIST, RECONNECTED TO MONITOR, VSS, REPOSITIONED FOR COMFORT, CALL LIGHT IN REACH, NO OTHER NEEDS AT THIS TIME
--- NOTE | 2016-05-21 15:00 | NUR ---
CHRONULAC 30 MG PO GIVEN PER MAR ORDER
[2016-05-21 16:41] LABS: HEMATOCRIT 26.7 % (42.0-54.0); HEMOGLOBIN 8.9 g/dL (13.5-17.5)
--- NOTE | 2016-05-21 17:00 | NUR ---
DINNER TRAY TO BEDSIDE, INDEPENDENT WITH SET UP AND EATING
--- NOTE | 2016-05-21 19:00 | NUR ---
REPORT RECIEVED, INITIAL ASSESSMENT COMPELTE, PLEASE SEE FLOW SHEETS FOR DETAILS. PT DENIES PAIN/NEEDS ATT, TURNS SELF IN BED. VSS, BED LOW AND LOCKED, CALL LIGHT IN REACH. WILL CONTINUE POC.
--- NOTE | 2016-05-21 20:10 | NUR ---
DECREASED SANDISTATIN TO 7.5ML/HR. WILL MONITOR.
--- NOTE | 2016-05-21 20:10 | NUR ---
UNIT ONE OF TWO OF PRBC STARTED.
--- NOTE | 2016-05-21 21:00 | NUR ---
PT DENIES PAIN/NEEDS ATT. BED LOW AND LOCKED, CALL LIGHT IN REACH, VSS, BLOOD INFUSING, WILL CONTINUE POC.
--- NOTE | 2016-05-21 21:15 | NUR ---
SANDISTATIN STOPPED PER DR RUELAS ORDERS.
--- NOTE | 2016-05-21 22:40 | NUR ---
UNIT ONE OF TWO OF PRBC COMPLETED.
--- NOTE | 2016-05-21 22:50 | NUR ---
UNIT TWO OF TWO OF PRBC STARTED.
--- NOTE | 2016-05-21 23:00 | NUR ---
REASSESSMENT COMPLETE, PLEASE SEE FLOW SHEETS FOR DETAILS. DENIES PAIN/NEEDS ATT. BED LOW AND LOCKED, CALL LIGHT IN REACH. VSS, WILL CONTINUE POC.
[2016-05-22] VITALS (16 sets, daily range): BP systolic 90–116; BP diastolic 38–70
--- NOTE | 2016-05-22 00:57 | NUR ---
PT RESTING, RECIEVING BLOOD, VSS, BED LOW AND LOCKED AND CALL LIGHT IN REACH. WILL CONTINUE POC.
--- NOTE | 2016-05-22 02:10 | NUR ---
UNIT TWO OF TWO OF PRBC COMPLETED.
--- NOTE | 2016-05-22 03:00 | NUR ---
REASSESSMENT COMPLETE, PLEASE SEE FLOW SHEETS FOR DETAILS. BED LOW AND LOCKED, CALL LIGHT IN REACH. DENIES PAIN/NEEDS ATT. VSS, WILL CONTINUE POC.
[2016-05-22 03:18] LABS: HEMATOCRIT 35.6 % (42.0-54.0); HEMOGLOBIN 11.9 g/dL (13.5-17.5)
[2016-05-22 04:17] LABS: HEMATOCRIT 35.1 % (42.0-54.0); HEMOGLOBIN 11.7 g/dL (13.5-17.5)
[2016-05-22 04:25] LABS: INR 1.53 (0.85-1.17); PROTIME 18.3 SECONDS (11.6-15.0)
[2016-05-22 04:36] LABS: ALBUMIN 1.8 g/dL (3.4-5.0); ALKALINE PHOSPHATASE 122 U/L (46-116); ALT (SGPT) 29 U/L (10-68); BILIRUBIN - TOTAL 4.04 mg/dL (0.2-1.3); CALC OSMOLALITY 272 mosm/kg (275-300); CALCIUM 7.1 mg/dL (8.5-10.1); CARBON DIOXIDE 27.1 mmol/L (21.0-32.0); CHLORIDE - SERUM 106 mmol/L (98-107); CREATININE - SERUM 0.6 mg/dL (0.6-1.3); GLUCOSE 88 mg/dL (74-106); POTASSIUM - SERUM 3.6 mmol/L (3.5-5.1); PROTEIN - SERUM 5.3 g/dL (6.4-8.2); SODIUM 138 mmol/L (136-145); UREA NITROGEN 6 mg/dL (7-18); eGFR NON AFRICAN AMERICAN > 90 mL/min (90-120)
--- NOTE | 2016-05-22 05:00 | NUR ---
PT RESTING, NO S&S OF ACUTE DISTRESS NOTED. BED LOW AND LOCKED, CALL LIGHT IN REACH. VSS, WILL CONTINUE POC.
--- NOTE | 2016-05-22 07:00 | NUR ---
REC'D REPORT AND RESUMED CARE, SLEEPING AROUSABLE TO VERBAL STIMULI, VSS, C/O NECK ACHE, 09/17, REPOSITIONED FOR COMFORT, ASSESSMENT COMPLETE PER FLOWSHEET, CALL LIGHT IN REACH, VOICES NO NEEDS AT THIS TIME
--- NOTE | 2016-05-22 08:00 | NUR ---
BREAKFAST TRAY TO BEDSIDE, INDEPENDENT WITH SET UP AND EATING
--- NOTE | 2016-05-22 10:18 | NUR ---
Nutrition Follow Up: Chart reviewed and spoke with RN. Pt is tolerating full liquid diet. Per RN diet to advance to GI soft/Starr. RD offered to put order in - RN agreed. Pt is eating 100% meal avg on a full liquid diet. Wt loss noted. I>O. +BM 05/21/16. Meds noted including Lactulose, Phenergan. Labs reviewed. Will change diet to GI Soft/Starr. RD following.
--- NOTE | 2016-05-22 10:35 | NUR ---
AM MEDS INITIATED PER APR ORDER AND PROTOCAL
--- NOTE | 2016-05-22 11:00 | NUR ---
OOB TO BSC WITH DALE ASSIST, LARGE DIARRHEA GREEN STOOL TO PAIN, SKINCARE AND LINEN CHANGE COMPLETED, BTB, ASSESSMENT COMPLETE, NO ACUTE CHANGE FROM PREVIOUS
--- NOTE | 2016-05-22 11:15 | NUR ---
DR RUELAS HERE FOR EVAL, STATES WILL TRANSFER OUT OF ICU AND WILL HAVE TEDDY SANDRA'D
--- NOTE | 2016-05-22 11:27 | NUR ---
18 FR ESPINAL CATHETER DC'D PER PROTOCAL, 800 CC SYLVAIN DRAINAGE TO BAG, TOLERATED WITHOUT DIFFICULTY
--- NOTE | 2016-05-22 12:15 | NUR ---
LUNCH TRAY TO BEDSIDE, INDEPENDENT WITH SET UP AND EATING
[2016-05-22 12:49] LABS: HEMATOCRIT 36.5 % (42.0-54.0); HEMOGLOBIN 12.3 g/dL (13.5-17.5)
--- NOTE | 2016-05-22 13:05 | NUR ---
ALDACTONE 50 MG INITIATED PER MAR AND ORDER
--- NOTE | 2016-05-22 15:00 | NUR ---
SLEEPING WITH NO SIGNS OF DISTRESS, VSS DENIES PAIN, ASSESSMENT COMPLETED, CALL LIGHT IN REACH, INDEPENDENT WITH REPOSITIONING, NO NEEDS AT THIS TIME
--- NOTE | 2016-05-22 16:26 | NUR ---
REPORT CALLED TO LY DAMON ON MED SURGFOR PENDING TRANSFER,
--- NOTE | 2016-05-22 16:40 | NUR ---
TRANSFERRED VIA WHEELCHAIR TO 2203, AAO NO SIGNS OF DISTRESS, PRIMARY NURSE CALLED TO BEDSIDE
--- NOTE | 2016-05-22 17:35 | NUR ---
PT WAS RECEIVED FROM ICU VIA HOSPITAL STAFF IN BED. STABLE CONDITION OBSERVED. PT IS ALERT AND ORIENTED X 3. HUNG LIGHT IN REACH. PICC LINE IN LEFT UPPER ARM INTACT.
--- NOTE | 2016-05-22 18:36 | NUR ---
PT RECEIVED HIS SUPPER TRAY A SANDWICH AND SOUP. HE IS EATING LIKE HE HASN'T EATTEN ALL DAY. STABLE CONDITION OBSERVED.
--- NOTE | 2016-05-22 19:45 | NUR ---
PT RECEIVED SITTING UP IN BED WATCHING TV AT THIS TIME. AAOX3. PICC NOTED TO LEFT UPPER ARM. S/L. DRESSING CDI. HEART RRR. LUNG SOUNDS CLEAR BILATERALLY. BOWEL SOUNDS ACTIVE X4 QUADRENTS. ABDOMEN SOFT NON-DISTENDED. PEDAL PULSES EQUAL BILATERALLY. PT RATES PAIN 0/10 AT THIS TIME. DENIES NEEDS. BED LOW. PHONE AND CALL LIGHT IN REACH. SRX2.
--- NOTE | 2016-05-22 22:08 | NUR ---
PT RESTING QUIETLY AT THIS TIME WITH EYES CLOSED. AROUSED EASILY. DENIES NEEDS. BED LOW. PHONE AND CALL LIGHT IN REACH. SRX2.
--- NOTE | 2016-05-22 22:16 | NUR ---
PM MEDS GIVEN AT THIS TIME. PT DENIES NEEDS AT THIS TIME. BED LOW. PHONE AND CALL LIGHT IN REACH. SRX2.
[2016-05-22 23:23] LABS: HEMATOCRIT 35.9 % (42.0-54.0); HEMOGLOBIN 11.8 g/dL (13.5-17.5)
--- NOTE | 2016-05-23 00:18 | NUR ---
PT RESTING QUIETLY AT THIS TIME WITH EYES CLOSED. AROUSED EASILY. DENIES NEEDS. BED LOW. PHONE AND CALL LIGHT IN REACH. SRX2.
--- NOTE | 2016-05-23 01:15 | NUR ---
PT RESTING QUIETLY AT THIS TIME WITH EYES CLOSED. RESPIRATIONS EVEN, NON-LABORED. NO ACUTE DISTRESS NOTED AT THIS TIME. BED LOW. PHONE AND CALL LIGHT IN REACH. SRX2.
[2016-05-23 05:22] VITALS: BP 99/50
--- NOTE | 2016-05-23 05:35 | NUR ---
AM LABS DRAWN AT THIS TIME. PT DENIES NEEDS. BED LOW. PHONE AND CALL LIGHT IN REACH. SRX2.
[2016-05-23 05:38] LABS: BASOPHILS 0.2 % (0.0-2.0); EOSINOPHILS 3.4 % (0-7); HEMATOCRIT 35.5 % (42.0-54.0); HEMOGLOBIN 11.8 g/dL (13.5-17.5); IMMATURE GRANULOCYTES 0.2 % (0-5); LYMPHOCYTES 17.8 % (15-50); MCH 30.2 pg (26.0-34.0); MCHC 33.2 g/dL (31.0-37.0); MCV 90.8 fL (80.0-100.0); MEAN PLATELET VOLUME 10.2 fL (7.4-10.4); MONOCYTES 18.1 % (2-11); NEUTROPHILS 60.3 % (40-80); PLATELET COUNT 105 10x3/uL (130-400); RBC 3.91 10x6/uL (4.20-6.10); RDW 16.9 % (11.5-14.5); WBC 5.1 10x3/uL (4.8-10.8)
[2016-05-23 06:09] LABS: ALBUMIN 1.8 g/dL (3.4-5.0); ALKALINE PHOSPHATASE 133 U/L (46-116); ALT (SGPT) 27 U/L (10-68); CALC OSMOLALITY 262 mosm/kg (275-300); CALCIUM 7.7 mg/dL (8.5-10.1); CARBON DIOXIDE 27.7 mmol/L (21.0-32.0); CHLORIDE - SERUM 103 mmol/L (98-107); CREATININE - SERUM 0.6 mg/dL (0.6-1.3); GLUCOSE 86 mg/dL (74-106); POTASSIUM - SERUM 3.9 mmol/L (3.5-5.1); PROTEIN - SERUM 5.3 g/dL (6.4-8.2); SODIUM 133 mmol/L (136-145); UREA NITROGEN 6 mg/dL (7-18); eGFR NON AFRICAN AMERICAN > 90 mL/min (90-120)
--- NOTE | 2016-05-23 06:30 | NUR ---
AM MEDS GIVEN AT THIS TIME. PT DENIES OTHER NEEDS AT THIS TIME. BED LOW. PHONE AND CALL LIGHT IN REACH. SRX2.
--- NOTE | 2016-05-23 07:10 | NUR ---
PT REC'D FROM LY LOGAN. RESTING IN BED EATING BREAKFAST. AAOX4. ABD DISTENDED. BOWEL SOUNDS HYPOACTIVE X4. SLIGHT PAIN TO PALPATION. DRESSING TO R SIDE OF ABD FROM PARACENTISIS CDI. NO COMPLAINTS OF PAIN. BED LOW, CALL LIGHT IN REACH, DENIES NEEDS. CPOC.
[2016-05-23 09:05] VITALS: BP 98/54
--- NOTE | 2016-05-23 10:05 | NUR ---
MORNING MEDS PASSED. PT RESTING IN BED WITH EYES CLOSED. EASILY AROUSED. NO C/O PAIN. BED LOW, CALL LIGHT IN REACH, DENIES NEEDS. CPOC.
[2016-05-23 11:59] VITALS: BP 92/51
[2016-05-23 13:20] LABS: HEMATOCRIT 38.3 % (42.0-54.0); HEMOGLOBIN 12.6 g/dL (13.5-17.5)
--- NOTE | 2016-05-23 15:06 | NUR ---
PATIENT IN LEFT LATERAL POSITION RESTING QUIETLY WITH EYES CLOSED. RESPIRATIONS EVEN AND UNLABORED. SIDE RAILS UP X2. BED IN LOW POSITION. CALL LIGHT IN REACH.
[2016-05-23 15:40] VITALS: BP 94/46
[2016-05-23 22:24] VITALS: BP 115/67
--- NOTE | 2016-05-24 00:02 | NUR ---
Recieved patient and report at 1900, alert and oriented X 4, left PICC line SL, Left AC SL, dressing to right abdomen from paracentisis CDI, call light and water in reach, bed in low locked position, denies needs, CPOC.
[2016-05-24 05:32] LABS: HEMATOCRIT 35.3 % (42.0-54.0); HEMOGLOBIN 11.4 g/dL (13.5-17.5)
[2016-05-24 06:08] LABS: ALBUMIN 1.8 g/dL (3.4-5.0); ALKALINE PHOSPHATASE 146 U/L (46-116); ALT (SGPT) 27 U/L (10-68); BILIRUBIN - TOTAL 1.36 mg/dL (0.2-1.3); CALC OSMOLALITY 269 mosm/kg (275-300); CALCIUM 7.5 mg/dL (8.5-10.1); CARBON DIOXIDE 26.1 mmol/L (21.0-32.0); CHLORIDE - SERUM 105 mmol/L (98-107); CREATININE - SERUM 0.6 mg/dL (0.6-1.3); GLUCOSE 91 mg/dL (74-106); PROTEIN - SERUM 5.5 g/dL (6.4-8.2); SODIUM 136 mmol/L (136-145); UREA NITROGEN 6 mg/dL (7-18); eGFR NON AFRICAN AMERICAN > 90 mL/min (90-120)
--- NOTE | 2016-05-24 08:05 | NUR ---
PT REC'D FROM LY VELA. RESTING IN BED WITH EYES CLOSED. EASILY AROUSED. BLOOD DRAWN FROM PICC LINE FOR AMMONIA LEVEL. DRESSING TO LINE CDI. ABD DISTENDED. BOWEL SOUNDS HYPERACTIVE X4 QUADRANTS. DRESSING TO R SIDE OF ABD CDI. NO C/O PAIN. BED LOW, CALL LIGHT IN REACH, DENIES NEEDS. CPOC.
[2016-05-24 08:14] VITALS: BP 94/53
--- NOTE | 2016-05-24 10:00 | NUR ---
PATIENT IN MID [place] POSITION RESTING WITH EYES CLOSED. RESPIRATIONS EVEN AND UNLABORED. SIDE RAILS UP X2. BED IN LOW POSITION. CALL LIGHT IN REACH.
[2016-05-24 12:44] VITALS: BP 110/64
[2016-05-24 15:50] VITALS: BP 101/52
[2016-05-24 17:08] LABS: HEMATOCRIT 35.2 % (42.0-54.0); HEMOGLOBIN 11.6 g/dL (13.5-17.5)
[2016-05-24 20:00] VITALS: BP 107/60
--- NOTE | 2016-05-24 22:00 | NUR ---
PT IN BED WITH HOB UP FOR COMFORT, WATCHING TV, NO COMPLAINTS AT THIS TIME, BED IN LOWEST POSITION AND CALL LIGHT WITHIN REACH.
[2016-05-25] VITALS (17 sets, daily range): BP systolic 92–116; BP diastolic 52–75
--- NOTE | 2016-05-25 01:55 | NUR ---
PT IN BED WITH HOB UP FOR COMFORT, RESTING QUIETLY, CHEST RISNING AND FALLING, BED IN LOWEST POSITION AND CALL LIGHT WITHIN REACH.
--- NOTE | 2016-05-25 05:34 | NUR ---
PT LYING IN BED, EYES CLOSED, RESPIRATIONS EVEN AND UNLABORED, BED IN LOWEST POSTIION AND CALL LIGHT WITHIN REACH.
--- NOTE | 2016-05-25 06:11 | NUR ---
PT WOKE UP TO GO TO THE BATHROOM AND VOMITED BRIGHT RED BLOOD. LABS PENDING AT THIS TIME. CALLED DR. MCARTHUR AND ORDERS RECEIVED TO CALL HIM BACK WITH RESULTS OF LABS. NO FURTHER ORDERS AT THIS TIME. WILL CONTINUE TO MONITOR. PT IN BED BED N LOWEST POSITION AND CALL LIGHT WITHIN REACH.
[2016-05-25 06:14] LABS: HEMATOCRIT 31.8 % (42.0-54.0); HEMOGLOBIN 10.5 g/dL (13.5-17.5)
[2016-05-25 09:59] LABS: HEMATOCRIT 29.9 % (42.0-54.0); LYMPHOCYTES 7.8 % (15-50); MCHC 33.4 g/dL (31.0-37.0); MCV 92.6 fL (80.0-100.0); MEAN PLATELET VOLUME 9.8 fL (7.4-10.4); PLATELET COUNT 124 10x3/uL (130-400); RBC 3.23 10x6/uL (4.20-6.10); RDW 17.6 % (11.5-14.5); WBC 6.6 10x3/uL (4.8-10.8)
--- NOTE | 2016-05-25 10:01 | NUR ---
CALLED REPORT TO JOSE IN ICU
[2016-05-25 10:10] LABS: ALBUMIN 1.7 g/dL (3.4-5.0); ALKALINE PHOSPHATASE 148 U/L (46-116); ALT (SGPT) 27 U/L (10-68); BILIRUBIN - TOTAL 1.16 mg/dL (0.2-1.3); CALCIUM 7.3 mg/dL (8.5-10.1); CARBON DIOXIDE 24.9 mmol/L (21.0-32.0); CHLORIDE - SERUM 105 mmol/L (98-107); CREATININE - SERUM 0.6 mg/dL (0.6-1.3); GLUCOSE 117 mg/dL (74-106); SODIUM 135 mmol/L (136-145); eGFR NON AFRICAN AMERICAN > 90 mL/min (90-120)
[2016-05-25 10:11] LABS: CALC OSMOLALITY 269 mosm/kg (275-300); POTASSIUM - SERUM 4.7 mmol/L (3.5-5.1); PROTEIN - SERUM 3.8 g/dL (6.4-8.2); UREA NITROGEN 9 mg/dL (7-18)
--- NOTE | 2016-05-25 10:15 | NUR ---
REC'D VIA BED, TRANSFERRED TO ICU BED WITH MININMAL ASSIST, AAO, NAUSEATED, NO EMESIS AT THIS TIME, DENIES PAIN, ASSESSMENT COMPLETE PER FLOWSHEET, VSS, WILL CONTINUE WITH POC
[2016-05-25 10:29] LABS: APTT 36.9 SECONDS (22.8-39.4); INR 1.75 (0.85-1.17); PROTIME 20.4 SECONDS (11.6-15.0)
--- NOTE | 2016-05-25 12:20 | NUR ---
BLOODY EMESIS WITH LARGE CLOTS, APPROXIMATELY 300 CC, TO SINGH, ORAL CARE TO RINSE MOUTH, PAGED DR. RUELAS, NEW ORDER GIVEN TO START ZOFRAN GTT, AND TO PLACE NGT WITH NEXT BLOODY EMESIS, VSS, BLOOD DRAWN AT SENT TO LAB
[2016-05-25 12:45] LABS: HEMATOCRIT 31.4 % (42.0-54.0); HEMOGLOBIN 10.3 g/dL (13.5-17.5)
--- NOTE | 2016-05-25 15:00 | NUR ---
NO ACUTE CHANGE FROM PREVIOUS ASSESSMENT, SLEEPING AROUSABLE TO VERBAL STIMULI, DENIES PAIN OR NAUSEA
[2016-05-25 16:38] LABS: HEMATOCRIT 27.7 % (42.0-54.0); HEMOGLOBIN 9.1 g/dL (13.5-17.5)
--- NOTE | 2016-05-25 17:30 | NUR ---
TO RADIOLOGY VIA BED, WITH PERSONNEL X2, FOR TRIPLE PHASE CT, NITHYAO
--- NOTE | 2016-05-25 17:45 | NUR ---
BACK FROM CT, RECONNECTED TO ICU MONITORS, VSS, DENIES PAIN OR NAUSEA
--- NOTE | 2016-05-25 19:17 | NUR ---
REPORT RECIEVED. ASSESSMENT COMPELTE PER FLOW SHEET. VSS. NO NEW FINDINGS. WILL CONTINUE TO MONITOR.
--- NOTE | 2016-05-25 21:17 | NUR ---
NO VISITORS AT THIS TIME. VSS. ASSISTED TO BEDSIDE COMMODE. LARGE BM NOTED. GIVE BB LINEN CHANGE. DENIES NEEDS. RESTING COMFORTABLY.
--- NOTE | 2016-05-25 23:17 | NUR ---
REASSESSMENT COMPLETE PER FLOW SHEET. VSS. NO NEW CHANGES
[2016-05-26] VITALS (30 sets, daily range): BP systolic 80–136; BP diastolic 35–88
--- NOTE | 2016-05-26 01:20 | NUR ---
1 UPRBC FINISHED INFUSING 450ML INFUSED. VSS NO NEW CHANGES
[2016-05-26 06:04] LABS: APTT 38.7 SECONDS (22.8-39.4); BASOPHILS 0.3 % (0.0-2.0); EOSINOPHILS 2.2 % (0-7); HEMOGLOBIN 9.8 g/dL (13.5-17.5); IMMATURE GRANULOCYTES 0.5 % (0-5); INR 1.56 (0.85-1.17); LYMPHOCYTES 14.7 % (15-50); MCHC 32.7 g/dL (31.0-37.0); MCV 91.7 fL (80.0-100.0); MONOCYTES 16.6 % (2-11); NEUTROPHILS 65.7 % (40-80); PLATELET COUNT 123 10x3/uL (130-400); PROTIME 18.6 SECONDS (11.6-15.0); RBC 3.27 10x6/uL (4.20-6.10); RDW 16.8 % (11.5-14.5)
[2016-05-26 06:08] LABS: ALBUMIN 1.8 g/dL (3.4-5.0); ALKALINE PHOSPHATASE 129 U/L (46-116); AMYLASE - SERUM 44 U/L (25-115); BILIRUBIN - TOTAL 1.79 mg/dL (0.2-1.3); CALCIUM 7.6 mg/dL (8.5-10.1); CARBON DIOXIDE 26.7 mmol/L (21.0-32.0); CHLORIDE - SERUM 106 mmol/L (98-107); CREATININE - SERUM 0.6 mg/dL (0.6-1.3); GLUCOSE 80 mg/dL (74-106); LIPASE 110 U/L (73-393); POTASSIUM - SERUM 4.6 mmol/L (3.5-5.1); SODIUM 137 mmol/L (136-145); eGFR NON AFRICAN AMERICAN > 90 mL/min (90-120)
[2016-05-26 06:26] LABS: CALC OSMOLALITY 273 mosm/kg (275-300); PROTEIN - SERUM 5.3 g/dL (6.4-8.2); UREA NITROGEN 14 mg/dL (7-18)
[2016-05-26 06:30] LABS: ALT (SGPT) 24 U/L (10-68)
--- NOTE | 2016-05-26 07:00 | NUR ---
REPORT RECEIVED. ASSESSMENT COMPLETED. NO NEEDS VOICED AT THIS TIME.
--- NOTE | 2016-05-26 07:26 | NUR ---
PATIENT C/O ANXIETY. ATIVAN GIVEN PER PRN ORDERS.
--- NOTE | 2016-05-26 09:48 | NUR ---
PAGED DR LUGO (ON FOR DR MORRIS) SECONDARY TO PATIENT MAP STAYING IN 50'S AND FALLING. SBP REMAINS IN THE 80'S AND 90'S. HE CALLED RIGHT BACK AND NEW ORDER RECEIVED FOR 500 ML NORMAL SALINE BOLUS TIMES ONE. ORDER ENTERED AND CARRIED OUT.
--- NOTE | 2016-05-26 09:53 | NUR ---
DR LUGO HERE. ORDERS RECEIVED FOR STAT H/H AND ALBUMIN 50GM IV TIMES ONE.
--- NOTE | 2016-05-26 10:04 | NUR ---
NUTRITION MONITORING & EVAL CHART REVIEWED. PT NOW IN ICU. CURRENTLY NPO. WILL PROVIDE DIET WHEN RESUMED, MONITOR PO INTAKE. RD FOLLOWING
[2016-05-26 10:24] LABS: HEMATOCRIT 27.3 % (42.0-54.0); HEMOGLOBIN 9.1 g/dL (13.5-17.5)
--- NOTE | 2016-05-26 10:27 | NUR ---
H/H WENT FROM 9.8/30.0 TO 9.1/27.3 IN LESS THAN 6 HOURS. NEW ORDERS RECEIVED FROM DR LUGO FOR ONE UNIT OF PRBC'S NOW. LAB CALLED AND SAID WILL BE READY IN 10 MINUTES.
--- NOTE | 2016-05-26 10:30 | NUR ---
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 EXPLAINED THAT THERE WOULD BE BLOOD READY IN APPROX. 8 MINUTES. THEY DID NOT WANT TO WAIT FOR IT TO BE STARTED. LEOBARDO STATED TO JUST BRING IT TO INTERVENTIONAL RADIOLOGY AND THEY WOULD GIVE IT TO THE PATIENT. WILL DO.
--- NOTE | 2016-05-26 13:10 | NUR ---
REPORT RECEIVED FROM LY SPENCE. PATIENT ON HIS WAY BACK. SHE SAID HE WAS WIDE AWAKE. THEY PULLED 3.5 LITERS OF FLUID IN THE PARACENTESIS. SHE SAID TO WATCH HIS RIGHT GROIN CLOSELY SECONDARY TO THE FACT THAT WHEN HE COUGHS, HE IS BLEEDING AT THE SITE. SHE STATED THAT THEY HAD TO CHANGE THE DRESSING AND APPLY PRESSURE TWICE. WILL ASSESS WHEN HE ARRIVES.
--- NOTE | 2016-05-26 13:27 | NUR ---
PATIENT BACK FROM RECOVERY. AWAKE AND ALERT. REVIEWED WITH HIM THAT HE WAS GOING TO HAVE TO LAY WITH HIS RIGHT LEG STRAIGHT UNTIL 1630 AND THAT I WOULD BE IN FREQUENTLY TO CHECK THE SITE FOR BLEEDING AND TO MAKE SURE HE HAS PULSES. HE STATED HIS UNDERSTANDING. ALSO EXPLAINED THAT THE MACHINE WOULD BE TAKING HIS BLOODPRESSURE MORE OFTEN FOR A LITTLE BIT BECAUSE HE IS JUST COMING OUT OF ANESTHESIA. PATIENT PUT A FROWN ON HIS FACE, BUT STATED HIS UNDERSTANDING.
--- NOTE | 2016-05-26 13:59 | NUR ---
PATIENT ON HIS RIGHT SIDE IN POSITION. WOKE PATIENT UP AND HAD HIM GET BACK ON HIS BACK AND STRAIGHTEN OUT HIS LEG. DRESSING TO RIGHT GROIN REMAINS WITHOUT SIGNS OF BLEEDING. PULSES PALPABLE.
--- NOTE | 2016-05-26 15:29 | NUR ---
DR RUELAS HERE. STATED THAT THE PATIENT WOULD BE ABLE TO TRY A FULL LIQUID DIET AND THAT HE WOULD STAY IN ICU FOR A COUPLE OF DAYS TO KEEP AN EYE ON HIM TO ENSURE HE DOESN'T START BLEEDING AGAIN.
--- NOTE | 2016-05-26 17:35 | NUR ---
PATIENT GOT UP TO THE BEDSIDE COMMODE AND STARTED WITH A COUGHING FIT. DURING THIS FIT, PATIENTS RIGHT GROIN STARTED BLEEDING AGAIN. HELD PRESSURE TO THE SITE AND CLEANED UP PATIENT. CALLED FOR SUPPLIES TO REDRESS THE SITE. AFTER DONE, PATIENT COVERED IN WARM BLANKETS. WILL MONITOR. AT THIS TIME HE HAS BEEN INSTRUCTED TO KEEP THAT RIGHT LEG STRAIGHT AGAIN.
--- NOTE | 2016-05-26 20:27 | NUR ---
REPORT RECIEVED. ASSESSMENT COMPLETE PER FLOW SHEET. TEMP 102.1 ORAL, BLANKETS REMOVED. AIR TURNED DOWN. WILL REASSESS. R GROIN INCISION SITE CDI NO DRAINAGE NOTED SMALL HEMATOMA NOTED. VSS. DENIES NEEDS. WILL CONTINUE TO MONITOR.
--- NOTE | 2016-05-26 21:21 | NUR ---
NO VISITORS AT THIS TIME. VSS. LARGE DARK BM NOTED. DENIES FURTHER NEEDS.
--- NOTE | 2016-05-26 23:35 | NUR ---
REASSESSMENT COMPLET EPER FLOW SHEET. NO NEW CHANGES FROM PREVIOUS. VSS. WILL CONTINUE TO MONITOR
[2016-05-27] VITALS (24 sets, daily range): BP systolic 102–144; BP diastolic 51–99
--- NOTE | 2016-05-27 01:40 | NUR ---
PT ANXIOUS OOB GIVEN PRN ATIVAN NEEDS MET.
--- NOTE | 2016-05-27 03:17 | NUR ---
REASSESSMNET COMPLETE PER FLOW SHEET. VSS. NO NEW CHANGES. WILL CONTINUE TO MONITOR.
[2016-05-27 04:07] LABS: BASOPHILS 0.1 % (0.0-2.0); EOSINOPHILS 0.2 % (0-7); HEMOGLOBIN 10.8 g/dL (13.5-17.5); IMMATURE GRANULOCYTES 0.3 % (0-5); LYMPHOCYTES 4.1 % (15-50); MCH 29.8 pg (26.0-34.0); MCHC 32.6 g/dL (31.0-37.0); MCV 91.2 fL (80.0-100.0); MEAN PLATELET VOLUME 10.5 fL (7.4-10.4); MONOCYTES 9.6 % (2-11); NEUTROPHILS 85.7 % (40-80); PLATELET COUNT 100 10x3/uL (130-400); RBC 3.63 10x6/uL (4.20-6.10); RDW 17.3 % (11.5-14.5)
[2016-05-27 04:14] LABS: HEMATOCRIT 33.1 % (42.0-54.0); WBC 10.6 10x3/uL (4.8-10.8)
[2016-05-27 04:30] LABS: ALBUMIN 2.7 g/dL (3.4-5.0); ALKALINE PHOSPHATASE 141 U/L (46-116); ALT (SGPT) 28 U/L (10-68); BILIRUBIN - TOTAL 2.41 mg/dL (0.2-1.3); CALC OSMOLALITY 270 mosm/kg (275-300); CALCIUM 7.7 mg/dL (8.5-10.1); CHLORIDE - SERUM 101 mmol/L (98-107); CREATININE - SERUM 0.9 mg/dL (0.6-1.3); GLUCOSE 112 mg/dL (74-106); MAGNESIUM - SERUM 1.7 mg/dL (1.8-2.4); PHOSPHOROUS 3.9 mg/dL (2.5-4.9); POTASSIUM - SERUM 4.2 mmol/L (3.5-5.1); PRO BNP 135 pg/mL (0-125); PROTEIN - SERUM 6.2 g/dL (6.4-8.2); SODIUM 135 mmol/L (136-145); UREA NITROGEN 12 mg/dL (7-18); eGFR NON AFRICAN AMERICAN > 90 mL/min (90-120)
--- NOTE | 2016-05-27 07:00 | NUR ---
REPORT RECEIVED. ASSESSMENT COMPLETED. PATIENT IN RIGHT POSITION WITH HEAD COVERED WITH BLANKET. DENIES NEEDS AT THIS TIME EXCEPT TO BE LEFT ALONE TO SLEEP.
--- NOTE | 2016-05-27 10:22 | NUR ---
SPOKE WITH DR LUGO ABOUT PATIENTS TEMP. EXPLAINED THAT DR KEMP HAS ORDERED CXR, BLOOD CULTURES X2, AND URINE CULTURE. HE STATED HE WOULD ADJUST ORDERS.
--- NOTE | 2016-05-27 12:38 | NUR ---
PATIENT HAS REFUSED BOTH BREAKFAST AND LUNCH. REMAINS IN BED WITH HEAD COVER, JUST "WANTS TO SLEEP".
[2016-05-28] VITALS (28 sets, daily range): BP systolic 103–140; BP diastolic 46–89
--- NOTE | 2016-05-28 01:17 | NUR ---
PT SLEEPING COMFORTABLY. VSS NO NEW CHANGES. WILL CONTINUE TO MONITOR.
--- NOTE | 2016-05-28 03:27 | NUR ---
REASSESSMENT COPMLET EPER FLOW SHEET. VSS. NO NEW CHANGES. WILL CONTINUE TO MONITOR.
[2016-05-28 04:21] LABS: BASOPHILS 0.1 % (0.0-2.0); EOSINOPHILS 1.6 % (0-7); HEMATOCRIT 27.8 % (42.0-54.0); HEMOGLOBIN 9.3 g/dL (13.5-17.5); IMMATURE GRANULOCYTES 0.1 % (0-5); LYMPHOCYTES 9.3 % (15-50); MCH 30.3 pg (26.0-34.0); MCHC 33.5 g/dL (31.0-37.0); MCV 90.6 fL (80.0-100.0); MONOCYTES 11.2 % (2-11); NEUTROPHILS 77.7 % (40-80); PLATELET COUNT 97 10x3/uL (130-400); RBC 3.07 10x6/uL (4.20-6.10)
[2016-05-28 04:30] LABS: INR 1.66 (0.85-1.17); PROTIME 19.6 SECONDS (11.6-15.0)
[2016-05-28 04:31] LABS: APTT 42.1 SECONDS (22.8-39.4)
[2016-05-28 04:47] LABS: ALBUMIN 2.3 g/dL (3.4-5.0); ALKALINE PHOSPHATASE 111 U/L (46-116); ALT (SGPT) 21 U/L (10-68); BILIRUBIN - TOTAL 1.66 mg/dL (0.2-1.3); CALCIUM 7.5 mg/dL (8.5-10.1); CHLORIDE - SERUM 105 mmol/L (98-107); CREATININE - SERUM 0.7 mg/dL (0.6-1.3); GLUCOSE 100 mg/dL (74-106); LIPASE 93 U/L (73-393); POTASSIUM - SERUM 3.6 mmol/L (3.5-5.1); PROTEIN - SERUM 5.8 g/dL (6.4-8.2); SODIUM 136 mmol/L (136-145); eGFR NON AFRICAN AMERICAN > 90 mL/min (90-120)
[2016-05-28 04:49] LABS: AMYLASE - SERUM 32 U/L (25-115); CALC OSMOLALITY 269 mosm/kg (275-300); UREA NITROGEN 8 mg/dL (7-18)
--- NOTE | 2016-05-28 07:00 | NUR ---
REPORT RECEIVED. ASSESSMENT COMPLETED. PATIENT QUESTIONED TO WHEN HE WOULD GET FOOD. EXPLAINED HIS CT OF ABD WITH CONTRAST TO HIM AND WHY HE NEEDED TO BE NPO. HE STATED UNDERSTANDING. DENIES NEEDS AT THIS TIME.
--- NOTE | 2016-05-28 09:09 | NUR ---
Nutrition follow-up: Diet: [place] Pt reports being hungry; however, pt has been refusing some meals pt reported he just wanted to sleep. Had temp last evening Wt: 184# Labs reviewed Will continue to provide food choices and honor food preferences within diet restrictions. RDN will order Ensure with meals. Following.
--- NOTE | 2016-05-28 09:35 | NUR ---
SINCE PATIENT IS CURRENTLY UNABLE TO EAT, HE HAS REFUSED TO WORK WITH PHYSICAL THERAPY.
--- NOTE | 2016-05-28 09:50 | NUR ---
PATIENTS FIRST UNIT OF BLOOD ([id number]) STARTED AFTER SAFETY CHECK WITH EDILBERTO DOMINGO RN. PATIENT DENIES QUESTIONS.
--- NOTE | 2016-05-28 12:30 | NUR ---
PATIENTS UNIT OF BLOOD COMPLETED. NO S/S OF TRANSFUSION REACTION.
--- NOTE | 2016-05-28 19:29 | NUR ---
REPORT RECIEVED. ASSESSMENT COMPLETE PER FLOW SHEET. VSS. ASSISTED TO BEDSIDE COMMODE LARGE LIQUID GREEN BM NOTED. GIVEN ICE WATER PER REUQEST. DENIES FURTHER NEEDS.
--- NOTE | 2016-05-28 23:28 | NUR ---
REASSESSMENT COMPLET EPER FLOW SHEET. VSS. NO NEW CHANGES. WILL CONTINUE TO MONITOR.
[2016-05-29] VITALS (17 sets, daily range): BP systolic 111–134; BP diastolic 55–471
--- NOTE | 2016-05-29 01:17 | NUR ---
PT SLEEPING COMFORTABLY. NO NEW CHNAGES
--- NOTE | 2016-05-29 03:42 | NUR ---
REASSESSMENT COMPLET EPER FLOW SHEET. VSS. NO NEW CHANGES. WILL CONTINUE TO MONITOR. PT SLEEPING COMFORTABLY.
[2016-05-29 04:00] LABS: BASOPHILS 0.2 % (0.0-2.0); EOSINOPHILS 2.1 % (0-7); HEMATOCRIT 29.8 % (42.0-54.0); HEMOGLOBIN 9.9 g/dL (13.5-17.5); IMMATURE GRANULOCYTES 0.3 % (0-5); LYMPHOCYTES 10.9 % (15-50); MCHC 33.2 g/dL (31.0-37.0); MCV 90.3 fL (80.0-100.0); MEAN PLATELET VOLUME 9.8 fL (7.4-10.4); MONOCYTES 13.1 % (2-11); NEUTROPHILS 73.4 % (40-80); PLATELET COUNT 107 10x3/uL (130-400); RDW 16.3 % (11.5-14.5); WBC 5.8 10x3/uL (4.8-10.8)
[2016-05-29 04:37] LABS: CALC OSMOLALITY 269 mosm/kg (275-300); CALCIUM 7.6 mg/dL (8.5-10.1); CARBON DIOXIDE 25.4 mmol/L (21.0-32.0); CHLORIDE - SERUM 104 mmol/L (98-107); CREATININE - SERUM 0.6 mg/dL (0.6-1.3); GLUCOSE 98 mg/dL (74-106); POTASSIUM - SERUM 3.4 mmol/L (3.5-5.1); SODIUM 136 mmol/L (136-145); UREA NITROGEN 8 mg/dL (7-18); eGFR NON AFRICAN AMERICAN > 90 mL/min (90-120)
--- NOTE | 2016-05-29 07:00 | NUR ---
REC'D REPORT AND RESUMED CARE, AAO, UP AT BSC, DIARRHEA STOOL TO SINGH, 200 CC SYLVAIN URINE TO URINAL, LINEN CHANGE COMPLETED, BTB, RECONNECTED TO MONITORS, VSS, C/O OF PAIN IN BACK, SIDE, AND STOMACH, ABDOMEN DISTENDED, RIGHT SIDE DRESSING CDI, ASSESSMENT COMPLETE PER FLOWSHEET, SELF REPOSITIONS, CALL LIGHT IN REACH, WANTS ICE CHIPS, DISCUSSED STRICT NPO STATUS FOR PENDING PERICENTESIS, NO OTHER NEEDS AT THIS TIME
--- NOTE | 2016-05-29 08:19 | NUR ---
TO IR FOR PENDING PERICENTESIS WITH PERSONNEL X3, AAO,
--- NOTE | 2016-05-29 09:45 | NUR ---
BACK FROM IR, AAO, RECONNECTED TO ICU MONITORS, VSS, DENIES PAIN, ABDOMEN DISTENDED AND SOFT, CALL LIGHT IN REACH, VOICES NO NEEDS AT THIS TIME
--- NOTE | 2016-05-29 11:00 | NUR ---
SLEEPING WITH NO SIGNS OF DISTRESS, VSS, AROUSABLE TO VERBAL STIMULI, DENIES PAIN, NO NEEDS AT THIS TIME, NO ACUTE CHANGE FROM PREVIOUS ASSESSMENT
--- NOTE | 2016-05-29 14:40 | NUR ---
REPORT CALLED TO [facility] FOR PENDING TRANSFER TO 2202, DR RUELAS HERE FOR EVAL, NEW ORDERS ADDED
--- NOTE | 2016-05-29 19:55 | NUR ---
PATIENT RESTING IN BED AND DENIES NEEDS AT THIS TIME. PATIENT REQUESTED ATIVAN AND PAIN MEDICATION WITH NIGHT MEDS IF THERE IS AN ORDER. I INFORMED THE PATIENT THAT THERE IS NOT AN ORDER FOR PAIN MEDICATION OR ATIVAN. PATIENT DENIES OTHER NEEDS AT THIS. BED IN LOWEST POSITION AND CALL LIGHT WITHIN REACH. ENCOURAGED PATIENT TO CALL IF HE HAS OTHER NEEDS.
--- NOTE | 2016-05-29 23:30 | NUR ---
SPOKE WITH TECHNICAL OPERATOR, GRETA ABOUT PATIENT'S PAIN 8/10 IN HIS BACK. SHE SAID THAT SHE WOULD LOOK INTO IT AND CALL THE ER DOCTOR.
[2016-05-30] VITALS: BP 90/35
[2016-05-30 04:00] VITALS: BP 120/68
[2016-05-30 04:59] LABS: BASOPHILS 0.2 % (0-2); EOSINOPHILS 2.4 % (0-7); HEMATOCRIT 29.7 % (42.0-54.0); IMMATURE GRANULOCYTES 0.2 % (0-5); LYMPHOCYTES 9.8 % (15-50); MCH 30.5 pg (26.0-34.0); MCHC 33.7 g/dL (31.0-37.0); MCV 90.5 fL (80.0-100.0); MEAN PLATELET VOLUME 9.8 fL (7.4-10.4); MONOCYTES 21.3 % (2-11); NEUTROPHILS 66.1 % (40-80); PLATELET COUNT 129 10x3/uL (130-400); RBC 3.28 10x6/uL (4.20-6.10); RDW 16.5 % (11.5-14.5); WBC 4.6 10x3/uL (4.8-10.8)
[2016-05-30 05:24] LABS: ALBUMIN 2.9 g/dL (3.4-5.0); ALKALINE PHOSPHATASE 113 U/L (46-116); ALT (SGPT) 21 U/L (10-68); CALC OSMOLALITY 263 mosm/kg (275-300); CALCIUM 7.8 mg/dL (8.5-10.1); CARBON DIOXIDE 24.8 mmol/L (21.0-32.0); CHLORIDE - SERUM 100 mmol/L (98-107); CREATININE - SERUM 0.6 mg/dL (0.6-1.3); GLUCOSE 95 mg/dL (74-106); POTASSIUM - SERUM 3.7 mmol/L (3.5-5.1); PROTEIN - SERUM 6.1 g/dL (6.4-8.2); SODIUM 133 mmol/L (136-145); UREA NITROGEN 6 mg/dL (7-18); eGFR NON AFRICAN AMERICAN > 90 mL/min (90-120)
--- NOTE | 2016-05-30 07:00 | NUR ---
PT REC'D FROM LY FIERRO. RESTING IN BED. EASILY AROUSED. AAOX4. REGULAR HEART RATE AND RHYTHM. LUNG SOUNDS CLEAR AND EQUAL BILAT. ABD ROUND, BOWEL SOUNDS HYPOACTIVE X4 QUADRANTS, SOFT AND TENDER TO PALPATION. DRESSING TO RLQ CDI, AND DRESSING TO R GROIN CDI. RATING CURRENT PAIN IN ABD 09/17. WILL REASSESS. BED LOW, CALL LIGHT IN REACH, DENIES NEEDS. CPOC.
[2016-05-30 08:17] VITALS: BP 104/68
--- NOTE | 2016-05-30 10:01 | NUR ---
MORNING MEDS PASSED. PRN NORCO ADMINISTERED PER PT C/O OF 10/18 ABD PAIN. WILL REASSESS. BED LOW, CALL LIGHT IN REACH, DENIES NEEDS. CPOC.
[2016-05-30 11:45] VITALS: BP 112/61
--- NOTE | 2016-05-30 12:15 | NUR ---
DR. LUGO AT BEDSIDE DISCUSSING POC. SCD'S PLACED ON AT THIS TIME. PAIN LEVEL NOW 6/10. BED LOW, CALL LIGHT IN REACH, DENIES NEEDS. CPOC.
[2016-05-30 15:35] VITALS: BP 100/63
--- NOTE | 2016-05-30 18:01 | NUR ---
PATIENT RESTING IN THE BED. AWAKE, ALERT, AND ORIENTED X4. LEFT PICC LINE PATENT WITH DRESSING C/D/I. PATIENT DENIES ANY NEEDS AT PRESENT TIME. CALL LIGHT IN PATIENT'S REACH. WILL MONITOR.
--- NOTE | 2016-05-30 19:40 | NUR ---
PATIENT RESTING IN BED WITH NO VISIBLE SIGNS OF DISTRESS. PATIENT IS UPSET THAT HE CANNOT HAVE HIS PAIN MEDICATION MORE FREQUENTLY AND STATED THAT HE WILL TALK TO THE DOCTOR ABOUT IT TOMORROW. BED IN LOWEST POSITION AND CALL LIGHT WITHIN REACH. ENCOURAGED THE PATIENT TO CALL IF HE HAS FURTHER NEEDS.
--- NOTE | 2016-05-30 19:40 | NUR ---
PATIENT RESTING IN BED WITH FAMILY AT BEDSIDE. PATIENT DENIES NEEDS AT THIS TIME. BED IN LOWEST POSITION AND CALL LIGHT WITHIN REACH. ENCOURAGED THE PATIENT TO CALL IF HE HAS NEEDS.
[2016-05-30 20:00] VITALS: BP 106/60
[2016-05-31] VITALS: BP 118/72
[2016-05-31 04:00] VITALS: BP 142/56
[2016-05-31 07:59] LABS: ALBUMIN 2.8 g/dL (3.4-5.0); ALKALINE PHOSPHATASE 121 U/L (46-116); ALT (SGPT) 21 U/L (10-68); BILIRUBIN - TOTAL 1.64 mg/dL (0.2-1.3); CALC OSMOLALITY 265 mosm/kg (275-300); CALCIUM 8.2 mg/dL (8.5-10.1); CARBON DIOXIDE 24.7 mmol/L (21.0-32.0); CHLORIDE - SERUM 100 mmol/L (98-107); CREATININE - SERUM 0.6 mg/dL (0.6-1.3); GLUCOSE 104 mg/dL (74-106); POTASSIUM - SERUM 3.6 mmol/L (3.5-5.1); PROTEIN - SERUM 6.4 g/dL (6.4-8.2); SODIUM 134 mmol/L (136-145); UREA NITROGEN 6 mg/dL (7-18); eGFR NON AFRICAN AMERICAN > 90 mL/min (90-120)
[2016-05-31 08:55] VITALS: BP 121/75
[2016-05-31 10:26] LABS: BASOPHILS 0.2 % (0-2); EOSINOPHILS 2.8 % (0-7); HEMOGLOBIN 10.9 g/dL (13.5-17.5); IMMATURE GRANULOCYTES 0.4 % (0-5); LYMPHOCYTES 12.4 % (15-50); MCH 30.5 pg (26.0-34.0); MCV 92.4 fL (80.0-100.0); MEAN PLATELET VOLUME 10.1 fL (7.4-10.4); MONOCYTES 13.8 % (2-11); NEUTROPHILS 70.4 % (40-80); RBC 3.57 10x6/uL (4.20-6.10); RDW 16.6 % (11.5-14.5); WBC 4.9 10x3/uL (4.8-10.8)
[2016-05-31 10:27] LABS: PLATELET COUNT 157 10x3/uL (130-400)
[2016-05-31 12:48] VITALS: BP 127/86
--- NOTE | 2016-05-31 15:55 | NUR ---
DR. LUCAS PAGED REGARDING ORDER TO DROP NGT AND PT HX OF ESOPHAGEAL VARICIES. DR. LUCAS STATED, "WITH THE PROCEDURES HE'S HAD EVERYTHING SHOUDL BE FINE AND YOU CAN DROP THE TUBE, BUT IF YOU START TO SEE A LOT OF BLOOD CALL ME."
--- NOTE | 2016-05-31 16:05 | NUR ---
DR. PARISH CHAUDHARY.
--- NOTE | 2016-05-31 16:05 | NUR ---
SPOKE WITH DR. LUGO. ORDERS OBTAINED REGARDING NGT INSERTION. CANCELLED DUE TO HX OF ESOPHAGEAL VARICIES.
[2016-05-31 17:35] VITALS: BP 116/69
[2016-05-31 20:00] VITALS: BP 148/89
--- NOTE | 2016-05-31 21:12 | NUR ---
PATIENT RESTING IN BED WITH C/0 9/10 PAIN. ADMINISTERED NORCO PER ORDERS. PATIENT DENIES OTHER NEEDS AT THIS TIME. BED IN LOWEST POSITION AND CALL LIGHT WITHIN REACH. ENCOURAGED PATIENT TO CALL IF HE HAS FURTHER NEEDS.
[2016-06-01] VITALS: BP 152/88
[2016-06-01 04:00] VITALS: BP 148/90
[2016-06-01 06:08] LABS: BASOPHILS 0.3 % (0-2); EOSINOPHILS 2.6 % (0-7); HEMATOCRIT 34.9 % (42.0-54.0); HEMOGLOBIN 11.6 g/dL (13.5-17.5); IMMATURE GRANULOCYTES 0.5 % (0-5); LYMPHOCYTES 9.4 % (15-50); MCH 30.5 pg (26.0-34.0); MCHC 33.2 g/dL (31.0-37.0); MCV 91.8 fL (80.0-100.0); MONOCYTES 17.2 % (2-11); PLATELET COUNT 181 10x3/uL (130-400); RDW 16.9 % (11.5-14.5); WBC 5.7 10x3/uL (4.8-10.8)
[2016-06-01 06:57] LABS: ALKALINE PHOSPHATASE 132 U/L (46-116); ALT (SGPT) 25 U/L (10-68); BILIRUBIN - TOTAL 1.69 mg/dL (0.2-1.3); CALC OSMOLALITY 266 mosm/kg (275-300); CALCIUM 8.8 mg/dL (8.5-10.1); CARBON DIOXIDE 24.3 mmol/L (21.0-32.0); CHLORIDE - SERUM 99 mmol/L (98-107); CREATININE - SERUM 0.7 mg/dL (0.6-1.3); GLUCOSE 110 mg/dL (74-106); POTASSIUM - SERUM 3.6 mmol/L (3.5-5.1); PROTEIN - SERUM 7.1 g/dL (6.4-8.2); SODIUM 134 mmol/L (136-145); UREA NITROGEN 7 mg/dL (7-18); eGFR NON AFRICAN AMERICAN > 90 mL/min (90-120)
[2016-06-01 07:49] VITALS: BP 148/89
--- NOTE | 2016-06-01 08:58 | NUR ---
PT SEEN AND ASSESSED. COMPLAINTS OF GAS IN LOWER ABDOMEN. STATES CHRONULAC IS NOT WORKING BUT HAD BM YESTERDAY. STATES PAIN MEDS ARE NOT HELPING AND WANTS TO HAVE ABDOMENT DRAINED AGAIN. CALL LIGHT IN REACH
[2016-06-01 11:25] VITALS: BP 131/81
[2016-06-01 16:01] VITALS: BP 119/73
[2016-06-01 20:00] VITALS: BP 118/73
--- NOTE | 2016-06-01 20:16 | NUR ---
PATIENT RESTING IN BED AND DENIES NEEDS AT THIS TIME. BED IN LOWEST POSITION AND CALL LIGHT WITHIN REACH. ENCOURAGED PATIENT TO CALL IF HE HAS NEEDS.
--- NOTE | 2016-06-01 21:23 | NUR ---
PATIENT RESTING IN BED AND DENIES NEEDS AT THIS TIME. ADMINISTERED MEDICATIONS PER ORDERS. BED IN LOWEST POSITION AND CALL LIGHT WITHIN REACH.
[2016-06-02] VITALS: BP 121/83
[2016-06-02 04:00] VITALS: BP 133/90
[2016-06-02 05:59] LABS: BASOPHILS 0.2 % (0-2); EOSINOPHILS 3.4 % (0-7); HEMATOCRIT 31.7 % (42.0-54.0); HEMOGLOBIN 10.4 g/dL (13.5-17.5); IMMATURE GRANULOCYTES 0.6 % (0-5); LYMPHOCYTES 9.7 % (15-50); MCH 29.9 pg (26.0-34.0); MCHC 32.8 g/dL (31.0-37.0); MCV 91.1 fL (80.0-100.0); MEAN PLATELET VOLUME 9.6 fL (7.4-10.4); MONOCYTES 19.7 % (2-11); NEUTROPHILS 66.4 % (40-80); PLATELET COUNT 170 10x3/uL (130-400); RBC 3.48 10x6/uL (4.20-6.10); RDW 16.7 % (11.5-14.5); WBC 5.3 10x3/uL (4.8-10.8)
[2016-06-02 06:24] LABS: ALBUMIN 2.7 g/dL (3.4-5.0); ALKALINE PHOSPHATASE 118 U/L (46-116); ALT (SGPT) 23 U/L (10-68); BILIRUBIN - TOTAL 1.74 mg/dL (0.2-1.3); CALC OSMOLALITY 263 mosm/kg (275-300); CALCIUM 8.4 mg/dL (8.5-10.1); CARBON DIOXIDE 26.4 mmol/L (21.0-32.0); CHLORIDE - SERUM 100 mmol/L (98-107); CREATININE - SERUM 0.7 mg/dL (0.6-1.3); GLUCOSE 93 mg/dL (74-106); POTASSIUM - SERUM 3.6 mmol/L (3.5-5.1); PROTEIN - SERUM 6.3 g/dL (6.4-8.2); SODIUM 133 mmol/L (136-145); UREA NITROGEN 7 mg/dL (7-18); eGFR NON AFRICAN AMERICAN > 90 mL/min (90-120)
--- NOTE | 2016-06-02 07:48 | NUR ---
SLEEPING AT THIS TIME WITH RESPIRATIONS EVEN AND NON LABORED. IV SITE PATENT WITH NO S/S OF DISTRESS PRESENT. CALL LIGHT IN REACH, WILL CONTINUE WITH PLAN OF CARE.
--- NOTE | 2016-06-02 08:15 | NUR ---
PT RESTING IN BED WITH EYES OPEN CALL LIGHT IN REACH NO PROBLEMS WILL MONITER
[2016-06-02 09:03] VITALS: BP 142/82
--- NOTE | 2016-06-02 10:23 | NUR ---
NUTRITION MONITORING & EVAL CHART REVIEWED, REG [place] DIET WITH 25% INTAKE BREAKFAST. WILL CONTINUE TO PROVIDE DIET, HONOR FOOD PREFERENCES. RD FOLLOWING
--- NOTE | 2016-06-02 12:15 | NUR ---
PT RESTING IN BED WITH EYES OPEN CALL LIGHT IN REACH WILL MONITER
[2016-06-02 12:16] VITALS: BP 120/76
[2016-06-02 15:53] VITALS: BP 119/78
--- NOTE | 2016-06-02 16:27 | NUR ---
CM REASSESSMENT NOTE: PATIENT REFERRAL BEING SENT TO [facility] FOR RISK MANAGEMENT CONSULTANT CARE.
--- NOTE | 2016-06-02 16:30 | NUR ---
PT UP AMBULATING IN THE BNADA TOLERATING WELL WILL MONITER
--- NOTE | 2016-06-02 19:20 | NUR ---
RECIEVED SHIFT REPORT. PT IS LYING IN BED. ALERT AND ORIENTED AND ABLE TO VERBALIZE NEEDS. IV IS PATENT AND SALINE LOC AT THIS TIME. PT IS AMBULATORY BUT WAS INSTRUCTED TO CALL FOR ANY ASSISTANCE NEEDED. PT STATES PAIN IS 6/10. NO NEEDS ARE VERBALIZED AT THIS TIME. WILL CONTINUE TO MONITOR. SIDE RAILS ARE UP X 2. BED IS IN LOWEST POSITION. CALL LIGHT IS WITHIN REACH.
--- NOTE | 2016-06-02 20:24 | NUR ---
SHIFT ASSESSMENT COMPLETED. NIGHT MEDS GIVEN WITH NO PROBLEMS. NO NEEDS ARE VOICED. WILL MONITOR. SIDE RAILS X 2. BED LOW. CALL LIGHT IN REACH.
[2016-06-02 21:19] VITALS: BP 119/64
[2016-06-03] VITALS: BP 124/76
[2016-06-03 05:56] LABS: BASOPHILS 0.2 % (0-2); EOSINOPHILS 3.9 % (0-7); HEMATOCRIT 29.9 % (42.0-54.0); HEMOGLOBIN 9.9 g/dL (13.5-17.5); IMMATURE GRANULOCYTES 0.2 % (0-5); LYMPHOCYTES 11.9 % (15-50); MCH 30.3 pg (26.0-34.0); MCHC 33.1 g/dL (31.0-37.0); MCV 91.4 fL (80.0-100.0); MEAN PLATELET VOLUME 9.8 fL (7.4-10.4); MONOCYTES 24.1 % (2-11); NEUTROPHILS 59.7 % (40-80); PLATELET COUNT 179 10x3/uL (130-400); RBC 3.27 10x6/uL (4.20-6.10); RDW 16.6 % (11.5-14.5); WBC 4.4 10x3/uL (4.8-10.8)
[2016-06-03 06:22] LABS: ALBUMIN 2.6 g/dL (3.4-5.0); ALKALINE PHOSPHATASE 114 U/L (46-116); ALT (SGPT) 23 U/L (10-68); BILIRUBIN - TOTAL 1.64 mg/dL (0.2-1.3); CALC OSMOLALITY 262 mosm/kg (275-300); CALCIUM 8.2 mg/dL (8.5-10.1); CARBON DIOXIDE 25.7 mmol/L (21.0-32.0); CHLORIDE - SERUM 100 mmol/L (98-107); CREATININE - SERUM 0.7 mg/dL (0.6-1.3); GLUCOSE 87 mg/dL (74-106); MAGNESIUM - SERUM 1.8 mg/dL (1.8-2.4); POTASSIUM - SERUM 3.7 mmol/L (3.5-5.1); PROTEIN - SERUM 6.3 g/dL (6.4-8.2); SODIUM 133 mmol/L (136-145); UREA NITROGEN 8 mg/dL (7-18); eGFR NON AFRICAN AMERICAN > 90 mL/min (90-120)
[2016-06-03 06:35] VITALS: BP 120/70
--- NOTE | 2016-06-03 07:48 | NUR ---
PT AOX4 RESP EVEN AND NONLABORED PT DENIES NEEDS AT THIS TIME SRX2 CALL LIGHT WITHIN REACH RIGHT PICC PATENT AND INTACT WILL CONTINUE TO MONITOR
[2016-06-03 08:40] VITALS: BP 117/73
[2016-06-03 12:31] VITALS: BP 107/67
[2016-06-03 16:13] VITALS: BP 11/65
[2016-06-03 20:00] VITALS: BP 118/69
--- NOTE | 2016-06-03 20:18 | NUR ---
AWAKE,ALERT,ORIENTED. NO COMPLINTS VOICED. DRSG TO RIGHT ABD DRY INTACT WIHTOUT DRAINAGE NOTED. ABD DISTEDNED AND FIRM. NO DISTRESS NOTED. LEFT PICC INTACT WITHOUT REDNESS OR EDEMA NOTED. CL IN REACH
[2016-06-04] VITALS: BP 128/82
--- NOTE | 2016-06-04 02:15 | NUR ---
RESTING QUIETLY. NO DISTRESS NOTED.
[2016-06-04 04:00] VITALS: BP 107/65
--- NOTE | 2016-06-04 04:50 | NUR ---
RESTING WITH EYES CLOSED, NO DISTRESS NOTED, ABD DSG CDI, FALL PRECAUTIONS IN PLACE, CL IN REACH
[2016-06-04 05:17] LABS: BASOPHILS 0.5 % (0-2); EOSINOPHILS 4.9 % (0-7); HEMATOCRIT 31.5 % (42.0-54.0); HEMOGLOBIN 10.2 g/dL (13.5-17.5); IMMATURE GRANULOCYTES 0.2 % (0-5); LYMPHOCYTES 13.5 % (15-50); MCH 29.8 pg (26.0-34.0); MCHC 32.4 g/dL (31.0-37.0); MCV 92.1 fL (80.0-100.0); MEAN PLATELET VOLUME 9.7 fL (7.4-10.4); MONOCYTES 21.1 % (2-11); NEUTROPHILS 59.8 % (40-80); PLATELET COUNT 186 10x3/uL (130-400); RBC 3.42 10x6/uL (4.20-6.10); RDW 16.7 % (11.5-14.5); WBC 4.3 10x3/uL (4.8-10.8)
[2016-06-04 05:37] LABS: ALBUMIN 2.6 g/dL (3.4-5.0); ALKALINE PHOSPHATASE 127 U/L (46-116); ALT (SGPT) 25 U/L (10-68); BILIRUBIN - TOTAL 1.19 mg/dL (0.2-1.3); CALC OSMOLALITY 262 mosm/kg (275-300); CALCIUM 8.5 mg/dL (8.5-10.1); CARBON DIOXIDE 25.5 mmol/L (21.0-32.0); CHLORIDE - SERUM 100 mmol/L (98-107); CREATININE - SERUM 0.7 mg/dL (0.6-1.3); GLUCOSE 97 mg/dL (74-106); POTASSIUM - SERUM 3.7 mmol/L (3.5-5.1); PROTEIN - SERUM 6.6 g/dL (6.4-8.2); SODIUM 132 mmol/L (136-145); UREA NITROGEN 8 mg/dL (7-18); eGFR NON AFRICAN AMERICAN > 90 mL/min (90-120)
--- NOTE | 2016-06-04 06:19 | NUR ---
AWAKE,ALERT. NO CHANGE IN ASSESSMENT.
[2016-06-04 08:39] VITALS: BP 128/79
[2016-06-04 12:25] VITALS: BP 134/75
[2016-06-04 16:18] VITALS: BP 110/64
[2016-06-04 20:00] VITALS: BP 119/59
--- NOTE | 2016-06-04 21:10 | NUR ---
AWAKE,ALERT. NO DISTRESS NOTED. PICC TO LEFT ARM INTACT WIHTOUT REDSNESS OR EDEMA NOTED. CL IN REACH.
[2016-06-05] VITALS: BP 125/68
[2016-06-05 04:00] VITALS: BP 122/78
--- NOTE | 2016-06-05 04:28 | NUR ---
PT SLEEPING AT THIS TIME. NO DISTRESS NOTED. WAS GIVEN PAIN MED WITH BEDTIME MEDS. HAS BEEN NPO SINCE MIDNIGHT FOR EGD THIS AM. CONTINUE PLATER PRODUCTION'S PLAN OF CARE.
--- NOTE | 2016-06-05 05:50 | NUR ---
AWAKE WITHOUT COMPLAINTS. NO CHANGE IN ASSESSMENT. REMAINS NPO
[2016-06-05 06:14] LABS: HEMATOCRIT 29.5 % (42.0-54.0); HEMOGLOBIN 9.7 g/dL (13.5-17.5); MCH 30.4 pg (26.0-34.0); MCHC 32.9 g/dL (31.0-37.0); MCV 92.5 fL (80.0-100.0); MEAN PLATELET VOLUME 9.5 fL (7.4-10.4); PLATELET COUNT 184 10x3/uL (130-400); RBC 3.19 10x6/uL (4.20-6.10); RDW 16.6 % (11.5-14.5); WBC 4.5 10x3/uL (4.8-10.8)
[2016-06-05 06:32] LABS: ALBUMIN 2.8 g/dL (3.4-5.0); ALKALINE PHOSPHATASE 119 U/L (46-116); ALT (SGPT) 28 U/L (10-68); BILIRUBIN - TOTAL 1.16 mg/dL (0.2-1.3); CALC OSMOLALITY 265 mosm/kg (275-300); CARBON DIOXIDE 27.7 mmol/L (21.0-32.0); CHLORIDE - SERUM 102 mmol/L (98-107); CREATININE - SERUM 0.6 mg/dL (0.6-1.3); GLUCOSE 71 mg/dL (74-106); POTASSIUM - SERUM 4.1 mmol/L (3.5-5.1); PROTEIN - SERUM 6.2 g/dL (6.4-8.2); SODIUM 135 mmol/L (136-145); UREA NITROGEN 8 mg/dL (7-18); eGFR NON AFRICAN AMERICAN > 90 mL/min (90-120)
[2016-06-05 06:58] LABS: BASOPHILS 1 % (0-2); EOSINOPHILS 1 % (0-7); LYMPHOCYTES 17 % (15-50); MONOCYTES 10 % (2-11); NEUTROPHILS 71 % (40-80); PLATELET ESTIMATE NORMAL
--- NOTE | 2016-06-05 08:02 | NUR ---
PT ASSSESSMENT COMPLETE AWAKE AND ALERT ORINETD X 3 LUNGS CLAER BILATERALY BSA X 4 QUADS ABDOMEN DISTENDED AND TENDER TO PALPATION. PREVIOUS PARACENTESIS EARLIER THIS STAY. CALL LIGHT IN REACH SIDE RAILS UP X 2
[2016-06-05 08:20] VITALS: BP 116/70
--- NOTE | 2016-06-05 09:00 | NUR ---
PT TO GI LAB AT THIS TIME FOR UPPER GI WITH DR RUELAS.
--- NOTE | 2016-06-05 10:30 | NUR ---
PT RETURNED VIA BED FROM GI LAB AWAKE AND ALERT VS WNL NO ACUTE DISTRESS NTOED
--- NOTE | 2016-06-05 10:50 | NUR ---
PT TO SPECIALS AT THIS TIME FOR PARACENTESIS WITH DR KEMP.
--- NOTE | 2016-06-05 12:45 | NUR ---
PT RETURNED FROM SPECIALS AT THIS TIME AWAKE AND ALERT DRESSING IN PLACE TO RLQ ABDOMEN CLEAN DRY AND INTACT. PER REPORT FROM IR NURSE REMOVED 8 LITERS FLUID FROM ABDOMEN. SITTING UP EATING LUNCH MEAL AT THIS TIME. REQUESTING PAIN MEDS WILL TREAT PER ORDER.
[2016-06-05 13:02] LABS: PROTEIN - BODY FLUID 0.8 G/DL
--- NOTE | 2016-06-05 13:26 | NUR ---
PT SEEN FOR GUIDANCE COUNSELOR NOTE. NO COMPLAINTS AT PRESENT. HAS BEEN TO THE GI LAB AND PARACENTESIS TODAY. STATES 8 LITERS DRAWN OFF. ABD STILL SWOLLEN AND TENDER. BRUISING NOTED TO RLQ WITH NO DRESSING IN PLACE. CALL LIGHT IN REACH
[2016-06-05 13:29] LABS: LYMPH - BF 64 %; MACROPHAGES BF 35 %; MESOTHELIALS BF 1 %
--- NOTE | 2016-06-05 14:55 | NUR ---
REPORT RECEIVED FROM NASIR WARE.
--- NOTE | 2016-06-05 15:52 | NUR ---
CARAFATE, PROTONIX, AND LACTULOSE PO. CALL LIGHT IN REACH.
[2016-06-05 16:19] VITALS: BP 117/74
--- NOTE | 2016-06-05 17:05 | NUR ---
NO DISTRESS NOTED AT THIS TIME. ALARM ON. CALL LIGHT IN REACH.
--- NOTE | 2016-06-05 18:14 | NUR ---
AMBUALTING IN HALLWAY. TOLERATING WELL. WILL CONTINUE WITH PLAN OF CARE.
--- NOTE | 2016-06-05 19:45 | NUR ---
PT SITTING UP IN BED WATCHING TV, ASSESSMENT COMPLETED, NO ACUTE DISTRESS, SR'S UP, CL IN REACH, WILL MONITOR
[2016-06-05 20:00] VITALS: BP 110/60
--- NOTE | 2016-06-05 20:42 | NUR ---
MEDS GIVEN PER MAR, CHUY WELL, DENIES NEEDS, CL IN REACH
--- NOTE | 2016-06-05 23:11 | NUR ---
ALBUMIN HUNG PER APR, PRN PAIN MED GIVEN FOR C/O ABD PAIN 09/17, CHUY WELL, DENIES FURTHER NEEDS AT THIS TIME, CL IN REACH
[2016-06-05 23:54] VITALS: BP 122/71
--- NOTE | 2016-06-06 01:15 | NUR ---
PT UP TO SHOWER, NO DISTRESS NOTED, DENIES NEEDS AT THIS TIME
[2016-06-06 06:06] LABS: ALBUMIN 2.9 g/dL (3.4-5.0); BILIRUBIN - TOTAL 0.44 mg/dL (0.2-1.3); CALCIUM 9.4 mg/dL (8.5-10.1); CARBON DIOXIDE 27.1 mmol/L (21.0-32.0); PROTEIN - SERUM 7.2 g/dL (6.4-8.2)
[2016-06-06 06:09] LABS: HEMATOCRIT 28.9 % (42.0-54.0); HEMOGLOBIN 9.4 g/dL (13.5-17.5); MCH 29.2 pg (26.0-34.0); MCHC 32.5 g/dL (31.0-37.0); RBC 3.22 10x6/uL (4.20-6.10); RDW 15.5 % (11.5-14.5)
[2016-06-06 06:12] LABS: ANION GAP 12.2 mmol/L (8-16); POTASSIUM - SERUM 3.3 mmol/L (3.5-5.1)
[2016-06-06 06:15] LABS: MCV 89.8 fL (80.0-100.0); PLATELET COUNT 234 10x3/uL (130-400); WBC 2.7 10x3/uL (4.8-10.8)
[2016-06-06 06:57] LABS: EOSINOPHILS 9 % (0-7); LYMPHOCYTES 28 % (15-50); MONOCYTES 10 % (2-11); NEUTROPHILS 45 % (40-80); PLATELET ESTIMATE NORMAL
--- NOTE | 2016-06-06 07:45 | NUR ---
PATIENT RECEIVED IN LOW JACINTO POSITION RESTING QUIETLY. RESPIRATIONS EVEN AND UNLABORED. SIDE RAILS UP X2. BED IN LOW POSITION. CALL LIGHT IN REACH. DENIES NEEDS.
[2016-06-06 08:03] VITALS: BP 96/54
--- NOTE | 2016-06-06 08:13 | NUR ---
ALERT IN BED. NO SIGNS OF DISTRESS NOTED. SCHEDULED MEDICATION ADMINISTERED WELL PRN NORCO FOR PAIN 09/17. SIDE RAILS UP X2. BED IN LOW POSITION. CALL LIGHT IN REACH.
--- NOTE | 2016-06-06 12:00 | NUR ---
PATIENT IN LOW JACINTO POSITION RESTING QUIETLY. RESPIRATIONS EVEN AND UNLABORED. SCHEDULED MEDICATION ADMINSITERED. DENIES NEEDS. SIDE RAILS UP X2. BED IN LOW POSITION. CALL LIGHT IN REACH.
[2016-06-06 12:33] VITALS: BP 103/56
--- NOTE | 2016-06-06 14:40 | NUR ---
PATIENT UP AMBULATING IN HALLWAY WITHOUT ASSIST. NO SIGNS OF DISTRESS NOTED.
[2016-06-06 15:28] LABS: CALCIUM 8.1 mg/dL (8.5-10.1); CARBON DIOXIDE 27.2 mmol/L (21.0-32.0); CHLORIDE - SERUM 100 mmol/L (98-107); SODIUM 133 mmol/L (136-145)
[2016-06-06 15:29] LABS: CALC OSMOLALITY 265 mosm/kg (275-300); CREATININE - SERUM 0.7 mg/dL (0.6-1.3); GLUCOSE 137 mg/dL (74-106); UREA NITROGEN 8 mg/dL (7-18); eGFR NON AFRICAN AMERICAN > 90 mL/min (90-120)
[2016-06-06 15:34] VITALS: BP 111/62
--- NOTE | 2016-06-06 17:45 | NUR ---
ALERT IN BED. NO SIGNS OF DISTRESS NOTED. NORCO PER PRN ORDER FOR PAIN 09/17. SIDE RAILS UP X2. BED IN LOW POSITION. CALL LIGHT IN REACH.
--- NOTE | 2016-06-06 19:25 | NUR ---
LYING IN BED WATCHING TV, ASSESSMENT COMPLETED, NO ACUTE DISTRESS NOTED, DENIES NEEDS, REMINDED PT TO KEEP HOB ELEVATED, UNDERSTANDING VOICED, SR'S UP, CL IN REACH, WILL MONITOR
[2016-06-06 20:00] VITALS: BP 105/61
--- NOTE | 2016-06-06 20:55 | NUR ---
MEDS GIVEN PER MAR, CHUY WELL, DENIES NEEDS, CL IN REACH
--- NOTE | 2016-06-06 21:43 | NUR ---
LYING IN BED WATCHING TV, DENIES NEEDS, CL IN REACH, WILL CONTINUE TO MONITOR
--- NOTE | 2016-06-06 23:22 | NUR ---
ALBUMIN HUNG PER MAR, CHUY WELL, DENIES NEEDS, SR'S UP, CL IN REACH
--- NOTE | 2016-06-07 04:10 | NUR ---
BLOOD DRAWN FOR AM LAB INCLUDING AMMONIA, TAKEN TO LAB, DENIES NEEDS, CL IN REACH
--- NOTE | 2016-06-07 06:12 | NUR ---
PAGED TO INFORM OF AMMONIA LEVEL OF 49, AWAITING RETURN CALL
--- NOTE | 2016-06-07 06:16 | NUR ---
DR SAUCEDO RETURNED CALL, INFORMED OF AMMONIA LEVEL, NO NEW ORDERS RECIEVED
--- NOTE | 2016-06-07 07:15 | NUR ---
PATIENT RECEIVED SITTING UP ON SIDE OF BED ALERT. NO SIGNS OF DISTRESS NOTED. BED IN LOW POSITION. CALL LIGHT IN REACH.
[2016-06-07 07:57] VITALS: BP 107/64
--- NOTE | 2016-06-07 08:09 | NUR ---
PATIENT ALERT IN BED. RESPIRATIONS EVEN AND UNLABORED. REPOSITIONED SELF FOR COMFORT. SCHEDULED MEDICATION ADMINISTERED. SIDE RAILS UP X2. BED IN LOW POSITION. CALL LIGHT IN REACH. DENIES NEEDS.
--- NOTE | 2016-06-07 11:35 | NUR ---
PATIENT RESTING QUIETLY WITH EYES CLOSED. RESPIRATIONS EVEN AND UNLABORED. WAKES EASY. SCHEDULED MEDICATION ADMINISTERED. SIDE RAILS UP X2. BED IN LOW POSITION. CALL LIGHT IN REACH.
[2016-06-07 12:41] VITALS: BP 118/64
[2016-06-07 14:29] LABS: BASOPHILS 0.5 % (0-2); EOSINOPHILS 3.2 % (0-7); HEMATOCRIT 29.6 % (42.0-54.0); HEMOGLOBIN 9.8 g/dL (13.5-17.5); LYMPHOCYTES 19.3 % (15-50); MCH 30.9 pg (26.0-34.0); MCHC 33.1 g/dL (31.0-37.0); MEAN PLATELET VOLUME 9.1 fL (7.4-10.4); RBC 3.17 10x6/uL (4.20-6.10); RDW 16.6 % (11.5-14.5)
[2016-06-07 14:33] LABS: MCV 93.4 fL (80.0-100.0); PLATELET COUNT 134 10x3/uL (130-400); WBC 4.4 10x3/uL (4.8-10.8)
[2016-06-07 14:45] LABS: ALBUMIN 2.9 g/dL (3.4-5.0); ALKALINE PHOSPHATASE 118 U/L (46-116); BILIRUBIN - TOTAL 0.89 mg/dL (0.2-1.3); CALC OSMOLALITY 267 mosm/kg (275-300); CALCIUM 8.5 mg/dL (8.5-10.1); CARBON DIOXIDE 29.2 mmol/L (21.0-32.0); CHLORIDE - SERUM 103 mmol/L (98-107); CREATININE - SERUM 0.7 mg/dL (0.6-1.3); GLUCOSE 95 mg/dL (74-106); POTASSIUM - SERUM 4.3 mmol/L (3.5-5.1); PROTEIN - SERUM 6.4 g/dL (6.4-8.2); SODIUM 135 mmol/L (136-145); UREA NITROGEN 8 mg/dL (7-18); eGFR NON AFRICAN AMERICAN > 90 mL/min (90-120)
[2016-06-07 14:48] LABS: ALT (SGPT) 26 U/L (10-68)
[2016-06-07 15:57] VITALS: BP 128/68
--- NOTE | 2016-06-07 16:20 | NUR ---
ALERT IN BED. NO SIGNS OF DISTRESS NOTED. SCHEDULED MEDICATION ADMINISTERED. SIDE RAILS UP X2. BED IN LOW POSITION. CALL LIGHT IN REACH.
--- NOTE | 2016-06-07 19:28 | NUR ---
LYING IN BED AWAKE, ASSESSMENT COMPLETED, NO ACUTE DISTRESS NOTED, DENIES NEEDS AT THIS TIME, CL IN REACH, WILL MONITOR
[2016-06-07 20:00] VITALS: BP 99/56
--- NOTE | 2016-06-07 20:32 | NUR ---
MEDS GIVEN PER MAR, CHUY WELL, DENIES NEEDS, CL IN REACH
--- NOTE | 2016-06-07 22:57 | NUR ---
RESTING WITH EYES CLOSED, RESP WITH EASE, NO DISTRESS NOTED, CL IN REACH
--- NOTE | 2016-06-08 00:06 | NUR ---
PRN NORCO GIVEN FOR C/O ABD PAIN 10/18, CHUY WELL, UP TO SHOWER, WILL MONITOR
[2016-06-08 04:00] VITALS: BP 99/56
[2016-06-08 05:24] LABS: BASOPHILS 0.3 % (0-2); EOSINOPHILS 3.9 % (0-7); HEMATOCRIT 29.7 % (42.0-54.0); HEMOGLOBIN 9.6 g/dL (13.5-17.5); IMMATURE GRANULOCYTES 0.3 % (0-5); LYMPHOCYTES 16.3 % (15-50); MCH 30.2 pg (26.0-34.0); MCHC 32.3 g/dL (31.0-37.0); MCV 93.4 fL (80.0-100.0); MEAN PLATELET VOLUME 9.6 fL (7.4-10.4); NEUTROPHILS 63.2 % (40-80); PLATELET COUNT 145 10x3/uL (130-400); RBC 3.18 10x6/uL (4.20-6.10); RDW 16.5 % (11.5-14.5); WBC 3.6 10x3/uL (4.8-10.8)
[2016-06-08 05:25] LABS: ALBUMIN 2.7 g/dL (3.4-5.0); ALKALINE PHOSPHATASE 118 U/L (46-116); ALT (SGPT) 28 U/L (10-68); BILIRUBIN - TOTAL 0.92 mg/dL (0.2-1.3); CALC OSMOLALITY 268 mosm/kg (275-300); CALCIUM 8.3 mg/dL (8.5-10.1); CHLORIDE - SERUM 102 mmol/L (98-107); CREATININE - SERUM 0.7 mg/dL (0.6-1.3); GLUCOSE 112 mg/dL (74-106); POTASSIUM - SERUM 4.5 mmol/L (3.5-5.1); SODIUM 135 mmol/L (136-145); UREA NITROGEN 7 mg/dL (7-18); eGFR NON AFRICAN AMERICAN > 90 mL/min (90-120)
--- NOTE | 2016-06-08 07:10 | NUR ---
PATIENT RECEIVED ALERT IN LOW JACINTO POSITION. RESPIRATIONS EVEN AND UNLABORED. DENIES NEEDS. SIDE RAILS UP X2. BED IN LOW POSITION. CALL LIGHT IN REACH.
[2016-06-08 07:54] VITALS: BP 90/49
--- NOTE | 2016-06-08 08:27 | NUR ---
SITTING UP ON SIDE OF BED ALERT. NO SIGNS OF DISTRESS NOTED. SCHEDULED MEDICATION ADMINISTERED. SIDE RAILS UP X2. BED IN LOW POSITION. CALL LIGHT IN REACH.
[2016-06-08 08:30] VITALS: BP 112/65
[2016-06-08 11:26] VITALS: BP 99/61
--- NOTE | 2016-06-08 14:15 | NUR ---
PATIENT UP AMBULATING IN HALLWAY WITHOUT ASSIST. NO SIGNS OF DISTRESS NOTED.
[2016-06-08 15:41] VITALS: BP 101/62
--- NOTE | 2016-06-08 16:35 | NUR ---
PATIENT ALERT IN BED. NO SIGNS OF DISTRESS NOTED. SCHEDULED MEDICATION ADMINISTERED. SIDE RAILS UP X2. BED IN LOW POSITION. CALL LIGHT IN REACH.
--- NOTE | 2016-06-08 17:09 | NUR ---
CM REASSESSMENT NOTE:CM SPOKE WITH CADENCE (LIASON) AND SHE IS SENDING REFERRAL TO [facility].
--- NOTE | 2016-06-08 17:17 | OP ---
PATIENT NAME: DANIELLE MCKEE MEDICAL RECORD: [id number] :77 LOCATION:D.[facility] ADMISSION DATE:05/19/16 SURGEON: NICHOLAS RUELAS MD DATE OF OPERATION: 06/05/2016 PROCEDURE: EGD. INDICATION: Mr. Mckee is a 40-year-old gentleman with an end-stage liver disease secondary to alcohol, who presented with recurrent variceal bleeding. He had had an EGD (at [facility]) 1 week prior with esophageal varix banding. He had a repeat EGD during his hospitalization with banding of esophageal varix. He then underwent an abdominal mesenteric venogram with finding showing a small narrowed right portal vein that was not amenable to shunt placement, but a large esophageal varix was embolized was coil embolized during the procedure. He had recurrent GI bleeding from gastric varices and underwent a PARTO procedure on May 26 with IR with embolization of multiple gastric varices. Followup CT scan showed no contrast in the gastric or esophageal varices. He presents for followup EGD during his hospitalization to reevaluate status of esophageal varices, post gastric variceal embolization. PREMEDICATIONS: Total IV anesthesia (end-stage liver disease) propofol 280 mg. INSTRUMENT: Olympus video gastroscope. PROCEDURE AND FINDINGS: After receiving informed consent, Mr. Mckee's posterior pharynx was anesthetized with Cetacaine spray, placed in left lateral decubitus position and sedated as per anesthesia. After achieving adequate level of sedation, gastroscope was introduced per orally and advanced into the duodenum without difficulty. In the distal esophagus was a shallow ulcer, site of previous esophageal varix banding. The esophageal varices had markedly improved from previous EGD showing at best, grade I to II, which mostly flattened with insufflation. There were no signs of bleeding in the esophagus. Gastric mucosa was notable for marked reticulated pattern consistent with gastropathy or portal hypertension. In the cardia was 1 varix that was slightly erythematous, but nonbleeding. Pylorus was patent and competent. Duodenal mucosa was without ulcers. Gastroscope was then withdrawn. Mr. Mckee tolerated the procedure well, no immediate complications. ASSESSMENT: 1. Marked improvement in esophageal varices post embolization and banding, now grade I to II. 2. Gastropathy of portal hypertension. RECOMMENDATIONS: 1. Large volume paracentesis today. 2. If alf placement can be arranged for Mr. Mckee, we recommend placement of PleurX prior to discharge to help drain ascitic fluid to provide comfort. TRANSINT:[id number] Voice Confirmation ID: [id number] DOCUMENT ID: [id number] OPERATIVE REPORT [id number] DANIELLE MCKEE TERRI MD at 1717 CC: CSAE KEMP MD and THALIA SAUCEDO M.D. [id number] DICTATION DATE: 06/05/16 1023 ELEVATOR INSPECTOR: 06/05/16 1335 ADM IN [facility] [address] [place] [address]
--- NOTE | 2016-06-08 18:00 | NUR ---
PATIENT UP AMBULATING IN HALLWAY. NO SIGNS OF DISTRESS NOTED.
--- NOTE | 2016-06-08 19:25 | NUR ---
LYING IN BED WATCHING TV, ASSESSMENT COMPLETED, NO DISTRESS NOTED, DENIES NEEDS AT THIS TIME, CL IN REACH, WILL MONITOR
[2016-06-08 20:00] VITALS: BP 120/62
--- NOTE | 2016-06-08 21:36 | NUR ---
MEDS GIVEN PER MAR, CHUY WELL, DENIES NEEDS AT THIS TIME, CL IN REACH
--- NOTE | 2016-06-08 23:49 | NUR ---
RESTING WITH EYES CLOSED, RESP WITH EASE, NO DISTRESS NOTED, CL IN REACH
[2016-06-09] VITALS: BP 108/51
--- NOTE | 2016-06-09 04:48 | NUR ---
PRN PAIN MED GIVEN PER APR FOR C/O ABD PAIN 09/17, BLOOD DRAWN FOR ORDERED LABS, 10CC WASTED, PICC FLUSHED WITH 10 CC NS UP TO SHOWER, CHUY WELL,
[2016-06-09 05:09] LABS: BASOPHILS 0.4 % (0-2); EOSINOPHILS 3.9 % (0-7); HEMATOCRIT 26.2 % (42.0-54.0); HEMOGLOBIN 8.6 g/dL (13.5-17.5); LYMPHOCYTES 12.3 % (15-50); MCH 30.8 pg (26.0-34.0); MCHC 32.8 g/dL (31.0-37.0); MCV 93.9 fL (80.0-100.0); MEAN PLATELET VOLUME 9.3 fL (7.4-10.4); MONOCYTES 18.1 % (2-11); NEUTROPHILS 65.3 % (40-80); PLATELET COUNT 147 10x3/uL (130-400); RBC 2.79 10x6/uL (4.20-6.10); RDW 16.7 % (11.5-14.5); WBC 4.9 10x3/uL (4.8-10.8)
[2016-06-09 05:24] LABS: ALBUMIN 2.8 g/dL (3.4-5.0); ALKALINE PHOSPHATASE 128 U/L (46-116); ALT (SGPT) 28 U/L (10-68); BILIRUBIN - TOTAL 0.95 mg/dL (0.2-1.3); CALC OSMOLALITY 267 mosm/kg (275-300); CALCIUM 8.3 mg/dL (8.5-10.1); CARBON DIOXIDE 28.9 mmol/L (21.0-32.0); CHLORIDE - SERUM 102 mmol/L (98-107); CREATININE - SERUM 0.7 mg/dL (0.6-1.3); GLUCOSE 92 mg/dL (74-106); POTASSIUM - SERUM 4.3 mmol/L (3.5-5.1); PROTEIN - SERUM 6.4 g/dL (6.4-8.2); SODIUM 135 mmol/L (136-145); UREA NITROGEN 8 mg/dL (7-18); eGFR NON AFRICAN AMERICAN > 90 mL/min (90-120)
[2016-06-09 08:07] VITALS: BP 105/52
--- NOTE | 2016-06-09 10:00 | NUR ---
REPORT RECEIVED FROM LY VALENTE.
--- NOTE | 2016-06-09 12:03 | NUR ---
DONNIE AND DILEEP AMADOR CALL LIGHT IN REACH.
[2016-06-09 12:47] VITALS: BP 98/52
--- NOTE | 2016-06-09 12:58 | NUR ---
NUTRITION MONITORING & EVAL CHART REVIEWED. PT TOLERATING REG [place] DIET. 75% INTAKE LUNCH. WILL CONTINUE TO PROVIDE DIET, HONOR FOOD PREFERENCES. RD FOLLOWING
--- NOTE | 2016-06-09 14:59 | NUR ---
LACTULOSE PO PER ORDER. CALL LIGHT IN REACH.
--- NOTE | 2016-06-09 16:12 | NUR ---
BLOOD DRAWN FROM PICC LINE PER LY FOSTER, FOR T&S.
[2016-06-09 16:27] VITALS: BP 98/57
--- NOTE | 2016-06-09 18:30 | NUR ---
NO CHANGES IN INITIAL ASSESSMENT. CALL LIGHT IN REACH. WILL CONTINUE WITH PLAN OF CARE.
--- NOTE | 2016-06-09 19:25 | NUR ---
RECIEVED SHIFT REPORT. PT IS LYING IN BED. ALERT AND ORIENTED AND ABLE TO VERBALIZE NEEDS. IV IS PATENT AND SALINE LOC AT THIS TIME. SCD'S OFF AT THIS TIME. PT IS AMBULATORY BUT WAS INSTRUCTED TO CALL FOR ANY ASSISTANCE NEEDED. PT STATES PAIN IS 6/10. NO NEEDS ARE VERBALIZED AT THIS TIME. WILL CONTINUE TO MONITOR. SIDE RAILS ARE UP X 2. BED IS IN LOWEST POSITION. CALL LIGHT IS WITHIN REACH.
[2016-06-09 20:00] VITALS: BP 94/64
--- NOTE | 2016-06-09 20:29 | NUR ---
SHIFT ASSESSMENT COMPLETED. NIGHT MEDS GIVEN WITH NO PROBLEMS. NO NEEDS ARE VOICED. WILL MONITOR. SIDE RAILS X 2. BED LOW. CALL LIGHT IN REACH.
--- NOTE | 2016-06-10 00:25 | NUR ---
PRBC'S STARTED AT THIS TIME. VSS. WILL MONITOR. SIDE RAILS X 2. BED LOW. CALL LIGHT IN REACH.
[2016-06-10 06:16] LABS: HEMATOCRIT 29.7 % (42.0-54.0); HEMOGLOBIN 9.8 g/dL (13.5-17.5); MCH 30.8 pg (26.0-34.0); MCV 93.4 fL (80.0-100.0); MEAN PLATELET VOLUME 9.8 fL (7.4-10.4); PLATELET COUNT 129 10x3/uL (130-400); RBC 3.18 10x6/uL (4.20-6.10); RDW 16.8 % (11.5-14.5); WBC 4.1 10x3/uL (4.8-10.8)
[2016-06-10 06:54] LABS: ALBUMIN 2.6 g/dL (3.4-5.0); ALKALINE PHOSPHATASE 121 U/L (46-116); ALT (SGPT) 27 U/L (10-68); BILIRUBIN - TOTAL 2.13 mg/dL (0.2-1.3); CALC OSMOLALITY 266 mosm/kg (275-300); CALCIUM 8.2 mg/dL (8.5-10.1); CARBON DIOXIDE 27.2 mmol/L (21.0-32.0); CHLORIDE - SERUM 103 mmol/L (98-107); CREATININE - SERUM 0.7 mg/dL (0.6-1.3); GLUCOSE 87 mg/dL (74-106); PROTEIN - SERUM 6.1 g/dL (6.4-8.2); SODIUM 135 mmol/L (136-145); UREA NITROGEN 8 mg/dL (7-18); eGFR NON AFRICAN AMERICAN > 90 mL/min (90-120)
[2016-06-10 07:32] LABS: EOSINOPHILS 5 % (0-7); LYMPHOCYTES 12 % (15-50); MONOCYTES 8 % (2-11); NEUTROPHILS 69 % (40-80); PLATELET ESTIMATE DECREASED
--- NOTE | 2016-06-10 08:42 | NUR ---
AWAKE AND ALERT. ORIENTED X3. C/O PAIN TO ABDOMEN LEVEL 9. REQUESTED AND GIVEN ONE HYDROCODONE PO FOR SAME. WILL MONITOR. PICC TO LEFT UPPER ARM IS PATENT WITHOUT REDNESS AT INSERTION SITE. LUNGS ARE CLEAR BILATERALLY, NO COUGH NOTED. SKIN IS INTACT WITHOUT REDNESS . DENIES NEEDS.
[2016-06-10 08:57] VITALS: BP 94/48
--- NOTE | 2016-06-10 09:49 | NUR ---
AMBULATED IN HALLWAY PER SELF. UP TO SHOWER NOW PER SELF.
--- NOTE | 2016-06-10 11:11 | NUR ---
DRESSING TO LEFT UPPER ARM PICC CHANGED USING STERILE TECHNIQUE. SITE IS WITHOUT SIGNS OF INFECTION.
[2016-06-10 12:00] VITALS: BP 111/54
--- NOTE | 2016-06-10 12:15 | NUR ---
LUNCH SERVED IN ROOM. DENIES NEEDS.
[2016-06-10] MEDS ORDERED: CHRONULAC30 ML PO (13:29)
[2016-06-10] MEDS ORDERED: LASIX40 MG PO (13:29)
[2016-06-10] MEDS ORDERED: CARAFATE1 G/10 ML PO (13:29)
[2016-06-10] MEDS ORDERED: PROTONIX40 MG PO (13:29)
--- NOTE | 2016-06-10 14:22 | NUR ---
CM REASSESSMENT NOTE: PATIENT HAS BEEN DENIED AT COURT [place] IN [place]. CM CALLED [facility] REGARD[facility]. INDUSTRIAL ELECTRICAL ENGINEER TOOK CM NUMBER AND STATED RAMÓN ([facility]) WILL CALL REGARDING REQUEST.
--- NOTE | 2016-06-10 14:27 | NUR ---
CM REASSESSMENT NOTE: PATIENT HAS BEEN DENIED AT [facility] [place]. [place] [facility] [place] [facility] WASTE WATER OPERATOR TOOK CM NUMBER AND STATED RAMÓN ([facility]) WILL CALL REGARDING REQUEST.
--- NOTE | 2016-06-10 14:30 | NUR ---
RESTING QUIETLY IN BED. DENIES NEEDS.
--- NOTE | 2016-06-10 16:07 | NUR ---
CM REASSESSMENT NOTE: PATIENT HAS BEEN ACCEPTED TO [facility] ([facility]). PATIENT WILL D/C TOMORROW - RAM[facility] WITH [facility] ADMINISTRATOR PATIENT.
[2016-06-10 20:02] VITALS: BP 109/57
--- NOTE | 2016-06-10 21:50 | NUR ---
REC'D PATIENT LYING IN BED RESTING. REPORTED PAIN AT 7/10. DOES NOT WANT ANYTHING FOR PAIN. NO DISTRESS NOTED. DENIED FURTHER NEEDS AT THIS TIME. INSTRUCTED TO CALL IF NEEDED ANYTHING. WILL ADMINISTER MEDS PRESCRIBED, WILL CONT TO MONITOR. BED LOW, LOW, LOCKED, CALL LIGHT IN REACH.
--- NOTE | 2016-06-10 22:24 | NUR ---
PATIENT IN BED WATCHING TV. HOB 10 DEGREES. AAOX4. RR EVEN AND UNLABORED. PATIENT STATES HIS PAIN IS AN 8/10 IN ABD. LEFT PICC S/L WITH DRESSING CDI. SRX2. BED LOW. CALL LIGHT WITHIN REACH.
[2016-06-10 23:48] VITALS: BP 113/58; BP 94/57
--- NOTE | 2016-06-11 00:31 | NUR ---
PATIENT IS RESTING IN BED. TOOK A SHOWER EARLIER TONIGHT. NO DISTRESS NOTED. STATED PAIN WAS 7/10. INSTRUCTED TO CALL IF NEEDED ANYTHING. BED LOW, LOCKED, CALL LIGHT IN REACH.
[2016-06-11 04:00] VITALS: BP 102/54
[2016-06-11 05:27] LABS: BASOPHILS 0.3 % (0-2); EOSINOPHILS 6.5 % (0-7); HEMATOCRIT 30.3 % (42.0-54.0); HEMOGLOBIN 9.8 g/dL (13.5-17.5); LYMPHOCYTES 17.2 % (15-50); MCH 30.2 pg (26.0-34.0); MCHC 32.3 g/dL (31.0-37.0); MCV 93.2 fL (80.0-100.0); MONOCYTES 22.8 % (2-11); NEUTROPHILS 53.2 % (40-80); PLATELET COUNT 115 10x3/uL (130-400); RBC 3.25 10x6/uL (4.20-6.10); RDW 16.5 % (11.5-14.5); WBC 3.3 10x3/uL (4.8-10.8)
--- NOTE | 2016-06-11 06:07 | NUR ---
PATIENT IS ALSEEP. ADMINISTER AM MEDS PRESCRIBED. DENIED PAIN AT THIS TIME. DENIED FURTHER NEEDS AT THIS TIME. INSTRUCTED TO CALL IF NEEDED ANYTHING. BED LOW, LOCKED, CALL LIGHT IN REACH.
[2016-06-11 06:10] LABS: ALBUMIN 2.5 g/dL (3.4-5.0); ALKALINE PHOSPHATASE 119 U/L (46-116); ALT (SGPT) 26 U/L (10-68); BILIRUBIN - TOTAL 1.08 mg/dL (0.2-1.3); CALC OSMOLALITY 266 mosm/kg (275-300); CALCIUM 8.5 mg/dL (8.5-10.1); CARBON DIOXIDE 28.8 mmol/L (21.0-32.0); CHLORIDE - SERUM 104 mmol/L (98-107); CREATININE - SERUM 0.7 mg/dL (0.6-1.3); GLUCOSE 82 mg/dL (74-106); POTASSIUM - SERUM 4.1 mmol/L (3.5-5.1); PROTEIN - SERUM 6.1 g/dL (6.4-8.2); SODIUM 135 mmol/L (136-145); UREA NITROGEN 8 mg/dL (7-18); eGFR NON AFRICAN AMERICAN > 90 mL/min (90-120)
[2016-06-11 08:21] VITALS: BP 103/59
--- NOTE | 2016-06-11 08:58 | NUR ---
AWAKE AND ALERT. ORIENTED X3. C/O ABDOMINAL PAIN LEVEL 8. REQUESTED AND GIVEN ONE HYDROCODONE PO FOR SAME. WILL MONITOR. UP IN SHOWER PER SELF AT THIS TIME. ATE ALL OF BREAKFAST THIS AM. LUNGS ARE CLEAR BILATERALLY, NO COUGH NOTED. SKIN IS INTACT WITHOUT REDNESS. PICC TO LEFT UPPER ARM IS PATNET WITHOUT REDNESS AT INSERTION SITE. DENIES NEEDS.
--- NOTE | 2016-06-11 10:00 | NUR ---
RESTING QUIETLY WITH EYES CLOSED. NO NEEDS NOTED.
--- NOTE | 2016-06-11 12:15 | NUR ---
LUNCH SERVED IN ROOM. ATE ALL OF MEAL. NO C/O VOICED. DENIES NEEDS.
--- NOTE | 2016-06-11 13:09 | NUR ---
CM REASSESSMENT NOTE: CM SPOKE WITH RAM[facility]N ([facility] AND HE IS PICKING PATIENT UP TODAY FOR DISCHARGE. PATIENT IS BEING SUPPLIED WITH HIS D/C MEDS ($123.68) AND WILL PICK THEM UP AT [facility] AT DISCHARGE. RAMÓN KNOWS PATIENT HAS PRESCRIPTIONS TO BE PICKED UP AT DISCHARGE. [facility] RAM[facility]- [phone]
--- NOTE | 2016-06-11 13:45 | NUR ---
Order received for removal of PICC line. On arrival, PICC removal discussed with patient. Dressing removed and policy for PICC removal followed with PICC removed with cath intact at 39 cm. Site dressed with biopatch and tegaderm dressing placed with instructions to patient to leave in place for 24 hours. Site without signs of redness. Caryn Villatoro RN
--- NOTE | 2016-06-11 14:10 | NUR ---
DISCHARGED TO HOME AMBULATORY PER SELF. DISCHARGE INSTRUCTIONS GIVEN BOTH VERBALLY AND WRITTEN. ALL QUESTIONS ANSWERED. PATIENT VERBALIZED UNDERSTANDING OF SAME. NEEDED PRESCRIPTIONS CALLED TO VICE PRESIDENT OF [facility]INE[facility] [employer]AC[employer] FOR CM TO HANDLE BILL. PATIENT AWARE OF SAME.
== END 2016-06-11 14:10 | disposition home or self-care (01) | DRG 405 ==
LOC: D.ER 04:45 → D.ICU 06:13 → D.MS 06:13 → D.ICU 05-25 10:07 → D.MS 05-29 15:16
PROVIDERS: Family Medicine; Internal Medicine; Internal Medicine Gastroenterology; Student in an Organized Health Care Education/Training Program; ADMIT Emergency Medicine
PROC: 06183DY (ICD-10-PCS; 2016-05-19)
PROC: 02HV33Z Insertion of Infusion Device into Superior Vena Cava, Percutaneous Approach (ICD-10-PCS; 2016-05-19)
PROC: B548ZZA Ultrasonography of Superior Vena Cava, Guidance (ICD-10-PCS; 2016-05-19)
PROC: 06L34CZ Occlusion of Esophageal Vein with Extraluminal Device, Percutaneous Endoscopic Approach (ICD-10-PCS; principal; 2016-05-19 14:05)
PROC: 04L43DZ Occlusion of Splenic Artery with Intraluminal Device, Percutaneous Approach (ICD-10-PCS; 2016-05-20)
PROC: 0W9G3ZZ Drainage of Peritoneal Cavity, Percutaneous Approach (ICD-10-PCS; 2016-05-20)
PROC: 0W9G3ZZ Drainage of Peritoneal Cavity, Percutaneous Approach (ICD-10-PCS; 2016-05-26)
PROC: 0W9G3ZZ Drainage of Peritoneal Cavity, Percutaneous Approach (ICD-10-PCS; 2016-05-29)
PROC: 0DJ08ZZ Inspection of Upper Intestinal Tract, Via Natural or Artificial Opening Endoscopic (ICD-10-PCS; 2016-06-05)
PROC: 0W9G3ZZ Drainage of Peritoneal Cavity, Percutaneous Approach (ICD-10-PCS; 2016-06-05)
DX: K70.31 Alcoholic cirrhosis of liver with ascites (principal); K65.9 Peritonitis, unspecified; I85.11 Secondary esophageal varices with bleeding; D61.818 Other pancytopenia; D62 Acute posthemorrhagic anemia; K22.10 Ulcer of esophagus without bleeding; K76.6 Portal hypertension; R45.851 Suicidal ideations; F10.20 Alcohol dependence, uncomplicated; K29.70 Gastritis, unspecified, without bleeding; I69.922 Dysarthria following unspecified cerebrovascular disease; K29.80 Duodenitis without bleeding; F41.9 Anxiety disorder, unspecified; I10 Essential (primary) hypertension; K72.90 Hepatic failure, unspecified without coma; K31.89 Other diseases of stomach and duodenum; Z59.0 Homelessness; F32.9 Major depressive disorder, single episode, unspecified

== ENCOUNTER 2016-07-01 20:15 | Inpatient (IN) | payer MEDICAID ==
[~2016-07-01] VITALS: Ht 175.3 cm; Wt 79.3 kg
--- NOTE | ~2016-07-01 | HEMODYNAMI ---
PATIENT:DANIELLE MCKEE MEDICAL RECORD: [id number] : 77 LOCATION:[facility] D.2139 ADMISSION DATE: 07/02/16 Generatedon:07/02/20169:39 Patient name: DANIELLE MCKEE Patient #: [id number] SSN: DO B: 1975 Date of study: 07/02/2016 Page: Of Hemodynamic Procedure Report Patient Data Patient Demographics Procedure consent was obtained First Name: DANIELLE Gender: Male Last Name: RAFI : 1975 Patient #: [id number] Age: 40 year(s) Race: Unknown Additional ID: [id number] Contact details [address]: [address] [place] [address] State: [place] City: [place] Zip code: [address] Past Medical History Allergies Allergen Reaction Date Comments Reported Codeine 05/20/2016 Codeine 07/02/2016 Admission Admission Data Admission Date: 07/02/2016 Admission Time: 7:25 Room #: [id number] Weight (lbs.): 191 Weight (kg.): 86.64 Procedure Procedure Types Cath Procedure Peripheral Cath Diagnostic Procedure Cath Peripheral Miscellaneous PARACENTESIS WITH GUIDE Procedure Description Procedure Date Procedure Date: 07/02/2016 Procedure Start Time: 8:44 Procedure Staff Name Function Christin Lopez RT Steam Turbine Assembler Christin Lopez RT Monitor Nathanael Cobos RT Scrub Shola Sanchez MD Performing Physician Mame Livingston RN Nurse Procedure Medications Medication Administration Route Dosage Oxygen NC 3 l/min Lidocaine 1% added to field 20 Fentanyl I.V. 50 mcg Versed I.V. 1 mg Versed I.V. 1 mg Fentanyl I.V. 50 mcg Hemodynamics Rest Heart Rate: 81 (bpm) Snapshots Pre Cath Intra NCS Post Cath Vital Signs Time Heart Resp SPO2 NIBP (mmHg) Rhythm Pain Sedation Rate (ipm) (%) Status Level (bpm) 8:33:29 100 134/80(102) NSR 0 (11) 10(A) , No pain 8:37:42 73 18 100 129/73(98) NSR 0 (11) 10(A) , No pain 8:41:56 82 11 100 109/60(83) NSR 0 (11) 10(A) , No pain 8:46:00 87 20 100 118/63(84) NSR 0 (11) 10(A) , No pain 8:50:12 85 14 100 88/63(80) NSR 0 (11) 10(A) , No pain 8:54:12 82 17 100 106/62(76) NSR 0 (11) 10(A) , No pain 8:59:09 80 10 100 109/61(76) NSR 0 (11) 10(A) , No pain 9:03:41 79 12 100 Disturbed NSR 0 (11) 10(A) , No pain 9:08:03 74 10 100 100/52(76) NSR 0 (11) 10(A) , No pain 9:12:09 76 23 100 109/60(75) NSR 0 (11) 10(A) , No pain 9:16:21 69 15 100 112/57(69) NSR 0 (11) 10(A) , No pain 9:20:31 77 22 100 111/60(87) NSR 0 (11) 10(A) , No pain 9:24:41 77 21 100 100/54(83) NSR 0 (11) 10(A) , No pain 9:28:47 72 18 100 109/56(82) NSR 0 (11) 10(A) , No pain Medications Time Medication Route Dose Verified Delivered Reason Notes Effectivenes s by by 8:36:27 Oxygen NC 3 Mame Mame Per l/min Miki Livingston protocol RN RN 8:36:51 Lidocaine added 20ml Mame Shola 1% to vial Miki Sanchez MD field RN 8:40:12 Fentanyl I.V. 50 Mame Mame for pain mcg Miki Livingston RN RN 8:40:26 Versed I.V. 1 mg Mame Mame for Miki Miki sedation RN RN 8:45:13 Versed I.V. 1 mg Mame Mame for Miki Miki sedation RN RN 8:45:59 Fentanyl I.V. 50 Mame Mame for pain mcg Miki Livingston RN fringing machine operator Log Time Note 8:16:42 Patient Weight : 191 kg 8:18:10 Time tracking: Regular hours 8:18:17 Plan of Care:Hemodynamics will remain stable., Cardiac rhythm will remain stable., Comfort level will be maintained., Respiratory function will remain adequate., Patient/ family verbilizes understanding of procedure., Procedure tolerated without complication., Recovers from procedure without complications.. 8:18:27 Patient received from [employer] to IR Alert and oriented. Tansferred to table in Supine position. 8:18:33 Correct patient and procedure confirmed by team. 8:18:35 Signed procedure consent form obtained from patient. 8:18:37 8:18:48 H&P Date Dictated: 07/02/2016 ER History on chart.. 8:18:52 Family unavailable. 8:18:55 Patient NPO since Midnight. 8:19:05 Patient allergic to Codeine 8:19:10 Is patient on blood thinner?No 8:19:12 Patient diabetic? No. 8:19:14 8:19:15 ----Pre-sedation anethsthesia assessment.---- 8:19:18 Previous problem with sedation/anesthesia? No ? 8:19:22 Snore? Yes 8:19:24 Sleep apnea? No 8:19:30 Deviated septum? No 8:19:32 Opens mouth fully? Yes 8:19:34 Sticks out tongue? Yes 8:19:37 Airway obstruction? No ? 8:19:41 Dentures? No ? 8:19:43 8:19:53 IV patent on arrival in left forearm with 0.9% NaCl at KVO. 8:20:04 Right abdomen area was prepped with chlora-prep and draped in sterile fashion 8:20:06 Alarms reviewed by Boone Hernandez 8:20:07 Sharps counted by scrub and verified by Dee 8:20:08 8:32:27 ECG and BP/O2 sat monitors applied to patient. 8:32:28 Vital chart was started 8:34:25 Baseline sample Acquired. 8:34:26 Full Disclosure recording started 8:34:27 8:36:27 Oxygen 3 l/min NC was administered by Mame Livingston RN; Per protocol; 8:36:51 Lidocaine 1% 20ml vial added to field was administered by Shola Sanchez MD; ; 8:40:04 Physician arrived 8:40:12 Fentanyl 50 mcg I.V. was administered by Mame Livingston RN; for pain; 8:40:26 Versed 1 mg I.V. was administered by Mame Livingston RN; for sedation; 8:43:39 --------ALL STOP TIME OUT------ 8:43:40 Final Timeout: patient, procedure, and site verified with staff and physician. All members of the team are in agreement. 8:43:44 Physical assessment completed. ASA score P 3 - A patient with severe systemic disease as per Shola Sanchez MD. 8:43:50 Sedation plan: IV Moderate Sedation Versed, Fentanyl 8:43:57 Procedure started. 8:44:02 Local anesthetic to Abdominal area with Lidocaine 1% by Shola Sanchez MD.INITIAL ACCESS ONLY 8:45:13 Versed 1 mg I.V. was administered by Mame Livingston RN; for sedation; 8:45:59 Fentanyl 50 mcg I.V. was administered by Mame Livingston RN; for pain; 8:47:31 [id number] 8FR CATH DRAIN TRAY opened to sterile field. 8:47:44 CONNECTING TUBE FOR DRAINAGE BAG opened to sterile field. 9:27:28 10.6 liters of fluid was drained from abdomen 9:29:15 Procedure ended.(Physican Out) 9:29:52 Procedure and supply charges have been captured, reviewed, submitted and are correct. 9:31:17 Vital chart was stopped 9:31:20 Full Disclosure recording stopped Device Usage Item Name Manufacture Quantity Catalog Hospital Part Current Mini mal Lot# / Number Charge Number Stock Stock Serial# Code [id number] CareFusion 1 [id number] 8FR CATH DRAIN TRAY CONNECTING TUBE [place] [address] [id number] 5 FOR DRAINAGE Scientific BAG Signature Audit [place] Stage Time Signature Unsigned Intra-Procedure 07/02/2016 Christin Lopez RT(R) 9:31:14 AM RT(R) 07/02/2016 9:38:06 AM Intra-Procedure 07/02/2016 Christin Lopez 9:39:15 AM RT(R) Signatures Monitor : Christin Lopez RT Signature : Date : Time : [facility] [address] [place] [id number]
[~2016-07-01 20:15] MED LIST changes: +CARAFATE1 G/10 ML PO; +CHRONULAC30 ML PO; +LASIX40 MG PO; +PROTONIX40 MG PO
[2016-07-01 21:18] LABS: BASOPHILS 0.3 % (0-2); EOSINOPHILS 2.2 % (0-7); HEMATOCRIT 35.1 % (42.0-54.0); HEMOGLOBIN 11.4 g/dL (13.5-17.5); LYMPHOCYTES 15.4 % (15-50); MCH 30.7 pg (26.0-34.0); MCHC 32.5 g/dL (31.0-37.0); MCV 94.6 fL (80.0-100.0); MEAN PLATELET VOLUME 9.3 fL (7.4-10.4); MONOCYTES 17.3 % (2-11); NEUTROPHILS 64.8 % (40-80); PLATELET COUNT 104 10x3/uL (130-400); RBC 3.71 10x6/uL (4.20-6.10); RDW 16.5 % (11.5-14.5); WBC 3.6 10x3/uL (4.8-10.8)
[2016-07-01 21:30] LABS: ALKALINE PHOSPHATASE 194 U/L (46-116); ALT (SGPT) 31 U/L (10-68); BILIRUBIN - TOTAL 1.53 mg/dL (0.2-1.3); CALC OSMOLALITY 273 mosm/kg (275-300); CALCIUM 8.8 mg/dL (8.5-10.1); CARBON DIOXIDE 27.5 mmol/L (21.0-32.0); CHLORIDE - SERUM 103 mmol/L (98-107); CREATININE - SERUM 0.9 mg/dL (0.6-1.3); POTASSIUM - SERUM 3.9 mmol/L (3.5-5.1); PROTEIN - SERUM 7.9 g/dL (6.4-8.2); SODIUM 137 mmol/L (136-145); UREA NITROGEN 7 mg/dL (7-18); eGFR NON AFRICAN AMERICAN > 90 mL/min (90-120)
[2016-07-01 21:32] LABS: GLUCOSE 137 mg/dL (74-106)
[2016-07-02 02:40] LABS: INR 1.33 (0.85-1.17); PROTIME 16.4 SECONDS (11.6-15.0)
--- NOTE | 2016-07-02 07:33 | NUR ---
0723- RECEIVED PT VIA WHEELCHAIR FROM ER STAFF. WILL ADMIT PT AND CONTINUE TO MONITOR.
--- NOTE | 2016-07-02 07:46 | NUR ---
RECEIVED PT VIA ER STAFF MEMBERS. PT IS ALERT AND ORIENTED. AMBULATORY. NPO PER ER STAFF. INFORMED PT TO REMAIN NOTHING BY MOUTH UNTIL FURTHER NOTICE, PT STATES HE WILL TRY. ON ROOM AIR. NO MONITOR. IV SEEN TO LEFT AC THAT IS CURRENTLY SALINE LOCKED. PT IS TRYING TO GO OUTSIDE TO SMOKE, IFORMED PT THAT IT IS NOT A GOOD IDEA AT THIS TIME DUE TO PT JUST GETTING TO UNIT AND STAFF NEEDING TO DO ADMISSION PROCESS. WILL CONTINUE TO MONITOR AND CONTINUE TO ADMIT PT.
--- NOTE | 2016-07-02 08:04 | NUR ---
ANNIKA RN DID QUICKSTART AND ADMISSION HISTORY. IR IS TRYING TO TAKE PT NOW FOR PARACENTESIS. CALLED IR AND INFORMED THEM THAT I DO NOT HAVE ORDERS FOR CONSENTS FOR THAT PROCEDURE. PER NATALIYA AND LEOBARDO IN IR I DO NOT HAVE TO GET CONSENTS THEY STATE THEY WILL GET THAT DONE. WILL CONTINUE TO MONITOR.
--- NOTE | 2016-07-02 08:11 | NUR ---
PT TO IR VIA BED.
[2016-07-02 08:17] VITALS: BP 121/73
--- NOTE | 2016-07-02 09:28 | NUR ---
RECEIVED REPORT FROM SPECIALS FROM PTS PROCEDURE. PER REPORT PT HAD 10.5L OF FLUID DRAINED FROM ABDOMINAL AREA. PT IS AWAKE AND ALERT. PER JORDY PT WILL NOT REQUIRE FREQUENT VITALS FROM PARACENTESIS POST-OP. WILL AWAIT PT ARRIVAL AND CONTINUE TO MONITOR.
--- NOTE | 2016-07-02 09:54 | NUR ---
SPOKE WITH LEOBARDO IN IR, LEOBARDO STATES IT IS OKAY FOR PT TO GO AHEAD AND EAT AND DRINK. WILL CALL FOR TRAY FOR PT AND CONTINUE TO MONITOR.
--- NOTE | 2016-07-02 09:55 | NUR ---
0940- PT BACK FROM PROCEDURE VIA BED.
[2016-07-02 12:00] VITALS: BP 103/62
[2016-07-02 13:07] VITALS: BP 121/73; BMI 28.2
--- NOTE | 2016-07-02 13:21 | NUR ---
ADMISSION ASSESSMENT COMPLETED.
[2016-07-02 13:54] VITALS: Ht 175.3 cm; Wt 79.3 kg
[2016-07-02 15:59] VITALS: BP 114/61
--- NOTE | 2016-07-02 17:31 | NUR ---
Patient Name: DANIELLE MCKEE Admission Status: ER Accout number: [id number] Admission Date: 07-02-2016 : 1975 Admission Diagnosis: Attending: FADY Current LOS: 1 Anticipated DC Date: 07-03-2016 Planned Disposition: Other Type of Facility Primary Insurance: MEDICAID [place] PLANNED EXTERNAL PROVIDER: [facility], [facility] Discharge Planning Comments: * Is the patient Alert and Oriented? Yes 0 * How many steps to enter\exit or inside your home? 3-O/15-I 0 * PCP TRYING TO GET IN WITH DR. NIETO 0 * Pharmacy [facility] 0 * Preadmission Environment Other 0 * Other Environment [facility]OUSING 0 * Facility Name [facility] [address], [place] 0 * ADLs Independent 0 * Equipment None 0 * Other Equipment NO MEDICAL EQUIPMENT PROVIDER PREFERENCE 0 * List name and contact numbers for known caregivers / representatives who currently or will assist patient after discharge: RAMÓN CASTRO ([facility]) [phone] 0 * Community resources currently utilized None 0 * Please name any agencies selected above. NONE 0 * Additional services required to return to the preadmission environment? No 0 * Can the patient safely return to the preadmission environment? Yes 0 * Has this patient been hospitalized within the prior 30 days at any hospital? Yes 0 CM MET WITH PT IN ROOM TO DISCUSS DISCHARGE PLANNING AND NEEDS. PT REPORTS LIVING AT HOME INDEPENDENTLY AT [facility]. PT REPORTS BEING CLEAN AND SOBER FROM ALCOHOL FOR ONE MONTH. PT HAS NO MEDICAL EQUIPMENT AND NO OUTSIDE SERVICES ASSISTING IN THE HOME. CM DISCUSSED AVAILABILITY OF HOME HEALTH, REHAB SERVICES AND MEDICAL EQUIPMENT. PT DENIES DISCHARGE NEEDS, REPORTS RAMÓN CASTRO WILL PICK HIMUP FOR DISCHARGE BACK TO [facility] AT DISCHARGE. PT REPORTS IT IS OK TO SHARE HIS TREATMENT INFORMATION WITH RAMÓN OF [facility] AND REPORTS HE SIGNED A RELEASE IN ORDER FOR THE HOSPITAL TO DO SO. PT PLANS TO DISCHARGE BACK TO [facility] AT DISCHARGE. PT HAS ASSISTANCE AND SUPERVISION OF [facility] STAFF AT [facility]. CM TO CONTINUE TO FOLLOW AND ASSIST NEEDED. Flame Hardener: Binu Nguyen
--- NOTE | 2016-07-02 17:33 | NUR ---
PT IS CURRENTLY SITTING UP IN BED EATING DINNER. DENIES ANY NEED AT CURRENT TIME. WILL CONTINUE TO MONITOR.
[2016-07-02 19:00] VITALS: BP 121/67
--- NOTE | 2016-07-02 19:30 | NUR ---
RECEIVED REPORT, IV-LAC-SL, PT IS A&O, WALKING IN HALLS, PT DENIES ANY NEEDS, WILL CONTINUE PLAN OF CARE
[2016-07-03] VITALS: BP 107/59
[2016-07-03 04:00] VITALS: BP 84/34
[2016-07-03 06:30] LABS: HEMATOCRIT 29.5 % (42.0-54.0); HEMOGLOBIN 9.9 g/dL (13.5-17.5); MCH 31.3 pg (26.0-34.0); MCHC 33.6 g/dL (31.0-37.0); MCV 93.4 fL (80.0-100.0); MEAN PLATELET VOLUME 9.4 fL (7.4-10.4); PLATELET COUNT 84 10x3/uL (130-400); RBC 3.16 10x6/uL (4.20-6.10); RDW 16.3 % (11.5-14.5)
[2016-07-03 06:31] LABS: WBC 2.4 10x3/uL (4.8-10.8)
[2016-07-03 06:36] LABS: ALBUMIN 2.4 g/dL (3.4-5.0); ALKALINE PHOSPHATASE 129 U/L (46-116); ALT (SGPT) 24 U/L (10-68); CALCIUM 7.7 mg/dL (8.5-10.1); CARBON DIOXIDE 25.5 mmol/L (21.0-32.0); CHLORIDE - SERUM 105 mmol/L (98-107); POTASSIUM - SERUM 3.9 mmol/L (3.5-5.1); SODIUM 138 mmol/L (136-145); UREA NITROGEN 6 mg/dL (7-18)
[2016-07-03 06:42] LABS: CALC OSMOLALITY 272 mosm/kg (275-300); CREATININE - SERUM 0.6 mg/dL (0.6-1.3); GLUCOSE 86 mg/dL (74-106); PROTEIN - SERUM 5.5 g/dL (6.4-8.2); eGFR NON AFRICAN AMERICAN > 90 mL/min (90-120)
[2016-07-03 07:05] LABS: EOSINOPHILS 6 % (0-7); LYMPHOCYTES 34 % (15-50); MONOCYTES 9 % (2-11); NEUTROPHILS 50 % (40-80); PLATELET ESTIMATE DECREASED
--- NOTE | 2016-07-03 07:53 | NUR ---
PT IS CURRENTLY LAYING IN BED ON BACK WITH EYES OPEN RESTING. ON ROOM AIR. NO MONITOR. IV SEEN TO LEFT AC THAT IS CURRENTLY SALINE LOCKED. NO NEED AT CURRENT TIME. WILL CONTINUE TO MONITOR AND CONTINUE WITH PLAN OF CARE.
[2016-07-03 08:52] VITALS: BP 94/58
[2016-07-03 13:11] VITALS: BP 115/67
[2016-07-03 17:59] VITALS: BP 100/58
--- NOTE | 2016-07-03 18:03 | NUR ---
PT IS LAYING IN BED ON BACK WITH EYES OPEN RESTING. PT DENIES ANY NEED AT CURRENT TIME. WILL CONTINUE TO MONITOR.
[2016-07-04] VITALS: BP 118/65
--- NOTE | 2016-07-04 02:10 | NUR ---
ASSESSMENT COMPLETE, IV-LAC-SL, PT IS A&O, ABLIB, BED IS LOW, SRX2, WILL CONTINUE PLAN OF CARE
[2016-07-04 04:00] VITALS: BP 116/58
[2016-07-04 06:29] LABS: BASOPHILS 0.4 % (0-2); HEMATOCRIT 30.2 % (42.0-54.0); LYMPHOCYTES 21.5 % (15-50); MCH 30.8 pg (26.0-34.0); MCHC 33.1 g/dL (31.0-37.0); MCV 92.9 fL (80.0-100.0); MEAN PLATELET VOLUME 9.8 fL (7.4-10.4); MONOCYTES 23.9 % (2-11); NEUTROPHILS 50.2 % (40-80); PLATELET COUNT 97 10x3/uL (130-400); RBC 3.25 10x6/uL (4.20-6.10); RDW 16.1 % (11.5-14.5); WBC 2.5 10x3/uL (4.8-10.8)
[2016-07-04 06:45] LABS: ALBUMIN 2.6 g/dL (3.4-5.0); ALKALINE PHOSPHATASE 136 U/L (46-116); ALT (SGPT) 26 U/L (10-68); BILIRUBIN - TOTAL 1.16 mg/dL (0.2-1.3); CALC OSMOLALITY 273 mosm/kg (275-300); CALCIUM 7.7 mg/dL (8.5-10.1); CARBON DIOXIDE 25.8 mmol/L (21.0-32.0); CHLORIDE - SERUM 106 mmol/L (98-107); CREATININE - SERUM 0.7 mg/dL (0.6-1.3); GLUCOSE 89 mg/dL (74-106); POTASSIUM - SERUM 3.4 mmol/L (3.5-5.1); PROTEIN - SERUM 5.8 g/dL (6.4-8.2); SODIUM 139 mmol/L (136-145); eGFR NON AFRICAN AMERICAN > 90 mL/min (90-120)
[2016-07-04 06:48] LABS: UREA NITROGEN 4 mg/dL (7-18)
--- NOTE | 2016-07-04 07:17 | NUR ---
PT SITTING UP IN BED ARROUSES EASILY DENIES NEEDS WILL CONT TO MONITOR
[2016-07-04 08:54] VITALS: BP 98/53
--- NOTE | 2016-07-04 14:11 | NUR ---
JERROD WENT OVER DC PAPERWORK WITH PT PT VERBALIZES UNDERSTANDING. DC PIV WITH CATH TIP INTACT. PT REFUSED WHEELCHAIR AND WALKED OUT WITH FRIEND.
== END 2016-07-04 14:11 | disposition home or self-care (01) | DRG 433 ==
LOC: D.ER 20:15 → D.M2 07-02 07:25 → OBSVTIME 07-02 07:25 → D.M2 07-02 07:25
PROVIDERS: Emergency Medicine; General Practice; ADMIT Family Medicine
PROC: 0W9G3ZZ Drainage of Peritoneal Cavity, Percutaneous Approach (ICD-10-PCS; principal; 2016-07-02 08:00)
DX: K74.60 Unspecified cirrhosis of liver (principal); D61.818 Other pancytopenia; R18.8 Other ascites; F20.9 Schizophrenia, unspecified; F31.9 Bipolar disorder, unspecified; F41.9 Anxiety disorder, unspecified; I10 Essential (primary) hypertension; Z86.73 Personal history of transient ischemic attack (TIA), and cerebral infarction without residual deficits; Z72.0 Tobacco use